=== PATIENT | male | born 1935 | race Caucasian/White ===

== ENCOUNTER → 2018-03-20 11:17 | Outpatient (REF) | payer SELFPAY ==
[2018-03-20 11:24] LABS: Basophils Percent Auto 0.1 % (0-2); Hemoglobin 13.1 g/dL (13.5-17.5)
[2018-03-20 11:26] LABS: Add Manual Diff / Slide Review NO; Eosinophils Percent Auto 6.4 % (2-4); Hematocrit 39.4 % (41-53); Lymphocytes Percent Auto 11.5 % (25-40); Mean Corpuscular HGB Conc 33.3 % (30-36); Mean Corpuscular Hemoglobin 28.6 PG (26-34); Neutrophils Absolute Auto 7800 /uL (3000-5900); Platelet Count 279 X10^3/uL (150-400); Red Blood Cell Count 4.58 X10^6/uL (4.5-5.9); Red Cell Distribution Width 14.4 % (11.6-14.8); White Blood Cell Count 10.4 X10^3/uL (4.5-11.0)
[2018-03-20 11:37] LABS: BUN Creatinine Ratio 21.6 (6-22); Blood Urea Nitrogen 41 mg/dL (9-20); Calcium 8.3 mg/dL (8.4-10.2); Carbon Dioxide 27 mmol/L (22-32); Chloride 101 mmol/L (98-107); Estimated Glomerular Filt Rate 34.3 mL/min (>60); Glucose 251 mg/dL (80-110); HEMOLYSIS < 15 (0-50); Potassium 4.2 mmol/L (3.4-5.1); Sodium 138 mmol/L (137-145)
== END ==
LOC: LAB 11:17
PROVIDERS: Visit Provider Internal Medicine
DX: N17.8 Other acute kidney failure (principal); I10 Essential (primary) hypertension
CPT/HCPCS: 80048; 85025

== ENCOUNTER 2018-06-21 15:08 | Inpatient (IN) | payer MEDICARE, SELFPAY ==
--- NOTE | 2018-06-21 15:22 | ED_ITS ---
HPI - Abdominal Pain General Chief Complaint: Nausea/Vomiting/Diarrhea Stated Complaint: Diarrhea Time Seen by Provider: 06/21/18 15:11 Source: patient and EMS Mode of arrival: EMS History of Present Illness HPI narrative: Patient is an 82-year-old male presenting with diarrhea. He has a chronic Flynn. He says he is unable to empty his bladder due to all large abdominal hernia. He says that his Flynn catheter has not been working like it normally does. He says he is not really emptying. He is currently being treated with Macrobid for a UTI diagnosed by his PCP. His caregiver came over today and found him covered in stool. He denies any complaints except his Flynn catheter not working. He has no abdominal pain he has no chest pain no persistent vomiting MD complaint: abdominal pain Related Data Allergies Allergy/AdvReac Type Severity Reaction Status Date / Time No Known Drug Allergies Allergy Verified 06/21/18 17:52 Review of Systems Review of Systems GENERAL: Denies chills, fatigue, malaise, fever, sweats, travel HEENT: Denies sinus pain, ear pain, sore throat, difficulty swallowing, neck pain RESPIRATORY: Denies dyspnea, cough, wheezing, hemoptysis, sputum. CARDIOVASCULAR: Denies chest pain, palpitations, orthopnea, edema GASTROINTESTINAL: Denies nausea, vomiting, abdominal pain, diarrhea, constipation, melena. : Denies dysuria, frequency, incontinence, hematuria, urinary retention, flank pain. MUSCULOSKELETAL: Denies weakness, joint pain, or bony pain SKIN: No rash, no erythema, no pruritus NEUROLOGIC: Denies weakness, dizziness, headache, numbness, change in speech, confusion PSYCHIATRIC: No concerning psychosocial issues. 12 point review of systems is negative except for those stated above and HPI Constitutional Denies chills, Denies fever(s), Denies lethargy and Denies weakness Cardiovascular Denies chest pain, Denies irregular heart rhythm, Denies lightheadedness, Denies palpitations and Denies orthopnea Gastrointestinal Gastrointestinal: Reports change in bowel habits, Reports diarrhea, Denies nausea and Denies vomiting Genitourinary Reports as per HPI Musculoskeletal Denies back pain, Denies muscle weakness, Denies numbness and Denies tingling Neurologic Denies numbness, Denies tingling and Denies weakness Endocrine Denies palpitations PFS Social History household members: none Smoking Status: Former smoker alcohol intake: former Exam Initial Vital Signs Initial Vital Signs: Vital Signs Temperature 99.9 F H 06/21/18 15:27 Pulse Rate 86 06/21/18 15:27 Respiratory Rate 20 06/21/18 15:27 Blood Pressure 112/97 H 06/21/18 15:27 Pulse Oximetry 96 06/21/18 15:27 Const General: cooperative, No well groomed, disheveled (Incontinence of stool) and frail appearing Orientation: alert, awake and oriented x3 Eyes General: appearance normal, both eyes and all related structures Neck Neck: normal visual inspection and full ROM Chest Chest: normal inspection of the chest Resp Effort & Inspection: normal respiratory effort Auscultation: clear to auscultation bilaterally, no rales, no rhonchi and no wheezes Cardio Rate: regular rate Rhythm: regular rhythm Heart Sounds: S1 normal and S2 normal GI Inspection: normal to inspection Palpation: soft, firm (Suprapubic firmness), No tender and No ascites Auscultation: normal bowel sounds General: No bladder normal to palpation and bladder abnormal (Full) Skin General: no rashes or lesions noted, No jaundice and No petechiae Neuro General: alert, awake and oriented x3 Cranial Nerves: CN's II-XI intact bilaterally Extrem General: normal to inspection, full ROM, capillary refill normal and edema ( Bilaterally) Course Orders Ordered: ED Orders 06/21/18 15:20 Clostridium Difficile Tox PCR Stat 06/21/18 15:35 Complete Blood Count AUTO DIFF Stat Comprehensive Metabolic Panel Stat Lactate (Lactic Acid) Stat Lipase Stat 06/21/18 17:25 Education, smoking cessation ONGOING 06/21/18 17:27 Consult to Occupational Therapy Evaluate & Treat 06/21/18 17:28 Consult to Discharge Planning Routine Consult to Physical Therapy Evaluate & Treat Acetaminophen (Tylenol) 650 mg PO Q6HR PRN PRN Reason: As Needed for Fever/Mild Pain Calcium Carbonate (Tums) 1,000 mg PO Q4HR PRN PRN Reason: Dyspepsia Heparin Sodium (Porcine) (Heparin) 5,000 unit SUBCUT BID MARCIE Sodium Chloride (Normal Saline 0.9%) 1,000 mls @ 100 mls/hr IV CONT MARCIE Last Infusion: 06/21/18 17:25 Dose: 150 mls/hr Admin: 06/21/18 16:08 Dose: 150 mls/hr Levofloxacin (Levaquin) 750 mg in 150 mls @ 100 mls/hr IV NOW ONE Stop: 06/21/18 18:27 Last Infusion: 06/21/18 17:25 Dose: 100 mls/hr Admin: 06/21/18 17:10 Dose: 100 mls/hr Morphine Sulfate (Morphine) 2 mg IV Q4HR PRN PRN Reason: Pain, Moderate (4-6) Ondansetron HCl (Zofran) 4 mg IV Q8HR PRN PRN Reason: Nausea And Vomiting Discontinued Medications Ceftriaxone Sodium/Dextrose (Rocephin) 1 gm in 50 mls @ 100 mls/hr IV NOW ONE Stop: 06/21/18 17:07 Last Admin: 06/21/18 17:19 Dose: Metronidazole (Metronidazole) 500 mg PO NOW ONE Stop: 06/21/18 16:59 Last Admin: 06/21/18 17:11 Dose: 500 mg Vital Signs - 8 hr 06/21/18 15:27 06/21/18 16:30 06/21/18 17:28 Temperature 99.9 F H 97.5 F L Pulse Rate 86 78 87 Respiratory Rate 20 21 19 Blood Pressure 112/97 H 135/84 Blood Pressure [Left Arm] 160/67 H Pulse Oximetry 96 94 96 MDM - Abdominal Pain Lab Data Attestation: I reviewed the patient's lab results. Result diagrams: 06/21/18 15:35 06/21/18 15:35 Lab Results 06/21/18 06/21/18 06/21/18 Range/Units 15:35 15:35 15:35 WBC 17.9 H (4.5-11.0) X10^3/uL RBC 4.43 L (4.5-5.9) X10^6/uL Hgb 12.5 L (13.5-17.5) g/dL Hct 37.1 L (41-53) % MCV 83.8 (80-100) fL MCH 28.2 (26-34) PG MCHC 33.7 (30-36) % RDW 14.1 (11.6-14.8) % Plt Count 268 (150-400) X10^3/uL Neut % (Auto) 92.7 H (50-75) % Lymph % (Auto) 3.6 L (25-40) % [place] % (Auto) 3.0 (3-14) % Eos % (Auto) 0.3 L (2-4) % Baso % (Auto) 0.4 (0-2) % Neut # (Auto) 16679 H (4840-4846) /uL Sodium 138 (137-145) mmol/L Potassium 3.1 L (3.4-5.1) mmol/L Chloride 100 (98-107) mmol/L Carbon Dioxide 22 (22-32) mmol/L BUN 61 H (9-20) mg/dL Creatinine 3.20 H (0.66-1.25) mg/dL Estimated GFR 18.8 L (>60) mL/min BUN/Creatinine Ratio 19.1 (6-22) Glucose 202 H (80-110) mg/dL Lactate 1.1 (0.7-2.1) mmol/L Calcium 8.9 (8.4-10.2) mg/dL Total Bilirubin 0.9 (0.2-1.3) mg/dL AST 12 L (17-59) IU/L ALT 17 L (21-72) IU/L Alkaline Phosphatase 207 H (38-126) U/L Total Protein 6.9 (6.3-8.2) g/dL Albumin 3.6 (3.5-5.0) g/dL Globulin 3.3 (1.7-4.1) g/dL Albumin/Globulin Ratio 1.1 (1.0-2.8) Lipase 33 (23-300) U/L MDM Narrative Medical decision making narrative: Catheter has been replaced significant amount of the drainage with new catheter. Unfortunately C diff stool collection was not collected even though it was ordered. Patient has been on Macrobid for number of days he continues to have leukocytosis. He otherwise appears comfortable. Creatinine is 3.2 today previously 1.[address] this and UTI fail outpatient treatment has accepted. request PO flagyl and cipro. Urine is pending. Discharge Plan Departure Patient Disposition: Admitted As Inpatient Clinical Impression: UTI (urinary tract infection), Acute renal failure Discharge Date/Time: 06/21/18 17:25 Interventions: ED Discharge Assessment Last Done: 06/21/18 17:25 Admit Date/Time: 06/21/18 17:15 Admit Provider: Hiwot Brooks
[2018-06-21 15:27] VITALS: BP 112/97; PULSE 86; RESP 20; TEMP 37.7; O2SAT 96
[2018-06-21 15:44] LABS: Add Manual Diff / Slide Review NO; Basophils Percent Auto 0.4 % (0-2); Eosinophils Percent Auto 0.3 % (2-4); Hematocrit 37.1 % (41-53); Hemoglobin 12.5 g/dL (13.5-17.5); Lymphocytes Percent Auto 3.6 % (25-40); Mean Corpuscular HGB Conc 33.7 % (30-36); Mean Corpuscular Hemoglobin 28.2 PG (26-34); Mean Corpuscular Volume 83.8 fL (80-100); Neutrophils Absolute Auto 16600 /uL (3000-5900); Neutrophils Percent Auto 92.7 % (50-75); Platelet Count 268 X10^3/uL (150-400); Red Blood Cell Count 4.43 X10^6/uL (4.5-5.9); Red Cell Distribution Width 14.1 % (11.6-14.8); White Blood Cell Count 17.9 X10^3/uL (4.5-11.0)
[2018-06-21 15:56] LABS: Alanine Aminotransferase 17 IU/L (21-72); Albumin 3.6 g/dL (3.5-5.0); Albumin Globulin Ratio 1.1 (1.0-2.8); Alkaline Phosphatase 207 U/L (38-126); Aspartate Aminotransferase 12 IU/L (17-59); BUN Creatinine Ratio 19.1 (6-22); Bilirubin Total 0.9 mg/dL (0.2-1.3); Blood Urea Nitrogen 61 mg/dL (9-20); Calcium 8.9 mg/dL (8.4-10.2); Carbon Dioxide 22 mmol/L (22-32); Chloride 100 mmol/L (98-107); Estimated Glomerular Filt Rate 18.8 mL/min (>60); Globulin 3.3 g/dL (1.7-4.1); Glucose 202 mg/dL (80-110); HEMOLYSIS < 15 (0-50); Lactate (Lactic Acid) 1.1 mmol/L (0.7-2.1); Lipase 33 U/L (23-300); Potassium 3.1 mmol/L (3.4-5.1); Sodium 138 mmol/L (137-145); Total Protein 6.9 g/dL (6.3-8.2)
[2018-06-21] MEDS: SODIUM CHLORIDE 0.9% 1,000 ML 150 ML IV (16:08)
[2018-06-21 16:30] VITALS: BP 160/67; PULSE 78; RESP 21; O2SAT 94
[2018-06-21] MEDS: levoFLOXacin 750 MG/150 ML PIGGYBACK 100 MG IV (17:10)
[2018-06-21] MEDS: metroNIDAZOLE 250 MG TABLET 500 MG PO (17:11)
[2018-06-21 17:28] VITALS: BP 135/84; PULSE 87; RESP 19; TEMP 36.4; O2SAT 96; BMI 29.1
--- NOTE | 2018-06-21 18:18 | PC.NURSE ---
Addendum entered by Linda Castañeda R.N. 06/21/18 21:40: Received call back from [place] (granddaughter) she states she will obtain list from [facility] and bring in the morning. Also received call from Elsa RN in ED, she states medications in a bag were sent to Main Nurses station in Acute Care. Medications list bag, were never received at nurses station. Elsa in ED attempted to find location of meds. Original Note: Addendum entered by Linda Castañeda R.N. 06/21/18 21:28: Patient does not know what medications he takes. He can only remember Lasix, does not know the frequency and dose. Notified Dr. Durán. Patient is unable to verbalize his medication list. Called his granddaughter Maien at [phone]. Left message. Patients PMD is Dr. Juan in [facility] [phone], unable to verify information at this time. Office is closed. Original Note: Ernestina shift note: Patient admitted to from ED for treatment of UTI. Patient awake, alert and oriented x3. Calm, cooperative, soft spoken and pleasant. JAMUL, and visually impaired due to severe cataracts, no hearing aids available. [facility] has an ophthalmology appointment this week. Noted with incontinence associated dermatitis to perineum, applied protective barrier cream. Cool edematous BLE 2+. VSS and afebrile. Updated regarding plan of care and oriented to room, environment and call light use. At home uses cane for short distances and walker for longer distances. SCD in place. Discussed importance of SCDs, cardiac surgeon, and IVFs. Obtained POLST from ED which was brought in by EMS, DNAR with limited interventions dated 03/18/2018. Will update and notify MD. CAll light within reach.
[2018-06-21 18:32] LABS: Appearance Urine UA CLOUDY; Bilirubin Urine UA NEGATIVE (NEGATIVE); Color Urine UA ORANGE; Glucose Urine UA TRACE g/dL (Normal); Ketones Urine UA NEGATIVE (NEGATIVE); Leukocyte Esterase Urine UA 2+ (NEGATIVE); Nitrite Urine UA POSITIVE (Negative); Occult Blood Urine UA 3+ (Negative); Protein Urine UA 3+ (Negative)
[2018-06-21 18:47] LABS: Bacteria Urine Moderate (10-30); Culture Indicated Urine Specimen Cultured; RBC Urine 10-30/HPF (0-5/HPF); WBC Urine 30-100/HPF (0-5/HPF)
[2018-06-21 19:32] VITALS: BP 133/58; PULSE 69; RESP 20; TEMP 36.4; O2SAT 96
--- NOTE | 2018-06-21 20:59 | PM.HP.1 ---
History of Present Illness Date Patient Seen: 06/21/18 Time Patient Seen: 21:08 Chief complaint: Diarrhea Narrative: Patient presents with the obstruction to his urinary catheter and new onset diarrhea. He states that he had his catheter placed about 2 weeks ago because he had difficulty with urination he states that this was due to his inguinal hernia catheter was placed 2 weeks ago he says he has been having problem with the catheter he is having been having pain and burning from the catheter ever since then. He started having difficulty with drainage of the catheter yesterday and he also notes that he was placed on antibiotic by his primary care doctor sometime last week for urinary infection. Early this morning copious amounts of diarrhea started he has been having diarrhea all day uncontrollable. He lives alone caregiver came in and had him come into the ER for evaluation due to the above-mentioned problems. The patient has been here in the emergency room since early this afternoon however he is unable to recall any of his medications and no one has been able to produce any type of list of medication. Patient History Medical History Congestive heart failure (Acute) Diabetes mellitus (Acute) Hernia of scrotum (Acute) Hypertension (Acute) Family & Social History Social History: household members none Prior Living Arrangements Mobile home Safety & Behavioral: Feels Safe in Current Yes Environment Suicidal Ideation Description None Tobacco & Substance use: Smoking Status Former smoker alcohol intake former alcohol intake frequency 0-2 drinks per day Substance Use Type does not use Meds Allergies Allergy/AdvReac Type Severity Reaction Status Date / Time No Known Drug Allergies Allergy Verified 06/21/18 17:52 Exam Vital Signs (past 8 hours): - 06/21/18 15:27 06/21/18 16:30 06/21/18 17:28 Temperature 99.9 F H 97.5 F L Pulse Rate 86 78 87 Respiratory Rate 20 21 19 Blood Pressure 112/97 H 135/84 Blood Pressure [Left Arm] 160/67 H Pulse Oximetry 96 94 96 06/21/18 19:32 Temperature 97.5 F L Pulse Rate 69 Respiratory Rate 20 Blood Pressure 133/58 L Blood Pressure [Left Arm] Pulse Oximetry 96 Oxygen Delivery Method Room Air Narrative Exam Narrative: Resting comfortably no acute distress Oropharynx dry Heart tachycardic Lungs clear Abdomen soft right inguinal hernia noted easily reducible Urinary catheter in place Lower extremities 1+ edema Skin warm and dry Neuro exam awake alert oriented x3 hard of hearing Objective Labs Result Diagrams: 06/21/18 15:35 06/21/18 15:35 Labs: Laboratory Results - last 24 hr 06/21/18 06/21/18 06/21/18 15:35 15:35 15:35 WBC 17.9 H RBC 4.43 L Hgb 12.5 L Hct 37.1 L MCV 83.8 MCH 28.2 MCHC 33.7 RDW 14.1 Plt Count 268 Neut % (Auto) 92.7 H Lymph % (Auto) 3.6 L [place] % (Auto) 3.0 Eos % (Auto) 0.3 L Baso % (Auto) 0.4 Neut # (Auto) 78806 H Sodium 138 Potassium 3.1 L Chloride 100 Carbon Dioxide 22 BUN 61 H Creatinine 3.20 H Estimated GFR 18.8 L BUN/Creatinine Ratio 19.1 Glucose 202 H Lactate 1.1 Calcium 8.9 Total Bilirubin 0.9 AST 12 L ALT 17 L Alkaline Phosphatase 207 H Total Protein 6.9 Albumin 3.6 Globulin 3.3 Albumin/Globulin Ratio 1.1 Lipase 33 Urine Color Urine Appearance Urine pH Ur Specific [place] Urine Protein Urine Glucose (UA) Urine Ketones Urine Occult Blood Urine Nitrate Urine Bilirubin Urine Urobilinogen Ur Leukocyte Esterase Urine RBC Urine WBC Urine Bacteria Ur Culture Indicated? Micro UA Comment 06/21/18 16:50 WBC RBC Hgb Hct MCV MCH MCHC RDW Plt Count Neut % (Auto) Lymph % (Auto) [place] % (Auto) Eos % (Auto) Baso % (Auto) Neut # (Auto) Sodium Potassium Chloride Carbon Dioxide BUN Creatinine Estimated GFR BUN/Creatinine Ratio Glucose Lactate Calcium Total Bilirubin AST ALT Alkaline Phosphatase Total Protein Albumin Globulin Albumin/Globulin Ratio Lipase Urine Color [place] Urine Appearance Cloudy Urine pH 5.0 Ur Specific [place] 1.020 Urine Protein 3+ H Urine Glucose (UA) Trace Urine Ketones Negative Urine Occult Blood 3+ H Urine Nitrate Positive Urine Bilirubin Negative Urine Urobilinogen 1.0 Ur Leukocyte Esterase 2+ H Urine RBC 10-30/hpf H Urine WBC 30-100/hpf H Urine Bacteria Moderate (10-30) H Ur Culture Indicated? Specimen cultured Micro UA Comment Not Reportable Assessment & Plan Plan: Assessment/Plan Narrative: One. Urinary tract infection secondary to urinary catheter has failed outpatient treatment he has persistent signs of infection in his UA and elevated white count. Infection seems to be secondary to the catheter. The catheter seems to be was malfunctioning it was replaced in the emergency department and now is draining well. Urine culture will be done who was placed on Levaquin 2. Persistent diarrhea possible clostridia colitis as C difficile has been ordered as yet to be collected will go ahead and place him on IV Flagyl for now. 3. Chronic kidney disease with acute exacerbation acute kidney injury creatinine up to 3.7 plan to rehydrate and hopefully with functioning urinary catheter this will come back down. 4. Diabetes plan to place him on as needed insulin for now. 5. History of heart failure will hold the Lasix and not sure of his current dose of home try to get the whole of his medication lists. 6. Code status he has a pulsed which shows DNR status 7. DVT prophylaxis on heparin
[2018-06-21] MEDS: LACTATED RINGERS 1,000 ML 100 ML IV (21:17)
[2018-06-21] MEDS: HEPARIN 5,000 UNIT/ML VIAL 5000 UNIT SUBCUT (21:20)
[2018-06-21 23:55] VITALS: BP 126/61; PULSE 67; RESP 18; TEMP 36.7; O2SAT 96
[2018-06-22] VITALS (8 sets, daily range): BP systolic 138–158; BP diastolic 65–78; PULSE 66–95; RESP 16–18; TEMP 36.5–37.2; O2SAT 95–97
[2018-06-22] MEDS: metroNIDAZOLE 500 MG/100 ML PIGGYBACK 100 MG IV ×3 (01:14→16:40)
[2018-06-22] MEDS: CIPROFLOXACIN 400 MG/200 ML PIGGYBACK 200 MG IV (05:58)
--- NOTE | 2018-06-22 07:02 | PC.NURSE ---
pt al&ox4, VSS on RA, womack draining to gravity, denied pain. slept most of night no new complaints
[2018-06-22 07:07] LABS: Add Manual Diff / Slide Review NO; Basophils Percent Auto 0.9 % (0-2); Eosinophils Percent Auto 1.5 % (2-4); Hematocrit 36.3 % (41-53); Lymphocytes Percent Auto 6.9 % (25-40); Mean Corpuscular HGB Conc 32.9 % (30-36); Mean Corpuscular Hemoglobin 27.9 PG (26-34); Mean Corpuscular Volume 84.8 fL (80-100); Monocytes Percent Auto 5.6 % (3-14); Neutrophils Absolute Auto 10300 /uL (3000-5900); Neutrophils Percent Auto 85.1 % (50-75); Platelet Count 249 X10^3/uL (150-400); Red Blood Cell Count 4.28 X10^6/uL (4.5-5.9); White Blood Cell Count 12.1 X10^3/uL (4.5-11.0)
[2018-06-22 07:20] LABS: Alanine Aminotransferase 19 IU/L (21-72); Albumin 3.2 g/dL (3.5-5.0); Alkaline Phosphatase 179 U/L (38-126); Aspartate Aminotransferase 11 IU/L (17-59); BUN Creatinine Ratio 21.7 (6-22); Bilirubin Total 0.6 mg/dL (0.2-1.3); Blood Urea Nitrogen 52 mg/dL (9-20); Calcium 8.6 mg/dL (8.4-10.2); Carbon Dioxide 24 mmol/L (22-32); Chloride 101 mmol/L (98-107); Estimated Glomerular Filt Rate 26.2 mL/min (>60); Globulin 3.2 g/dL (1.7-4.1); Glucose 138 mg/dL (80-110); HEMOLYSIS < 15 (0-50); Magnesium 1.8 mg/dL (1.6-2.3); Sodium 137 mmol/L (137-145); Total Protein 6.4 g/dL (6.3-8.2)
[2018-06-22 07:31] LABS: Potassium 2.6 mmol/L (3.4-5.1)
[2018-06-22] MEDS: POTASSIUM CHLORIDE 20 MEQ TAB 40 MEQ PO ×3 (08:44→16:40)
[2018-06-22] MEDS: MAGNESIUM SULFATE 2 GM/50 ML PIGGYBACK IV (08:44)
[2018-06-22] MEDS: HEPARIN 5,000 UNIT/ML VIAL 5000 UNIT SUBCUT ×2 (08:46→20:36)
[2018-06-22] MEDS: INSULIN ASPART 100 UNIT/ML INSULN PEN SUBCUT ×3 (08:46→16:43)
--- NOTE | 2018-06-22 10:00 | PT.IIE ---
Medical History (Last Updated 06/21/18 @ 19:47 by Linda Castañeda RN) Congestive heart failure (Acute) Diabetes mellitus (Acute) Hernia of scrotum (Acute) Hypertension (Acute) Physical Therapy Inpatient Evaluation/Re-Eval M1 PT/OT-IP Prior Functional Status Start: 06/22/18 10:05 Freq: NEEDED Status: Active Protocol: Document 06/22/18 10:10 (Rec: 06/22/18 11:53 [id number]) Medical Review Prior Functional Status Medical History Reviewed Yes Mobility and Gait independent with a cane as needed and pt requires constant tactile feedback for guidance since he is legally blind. Activities of Daily Living and IADL's independent at his mobile home with a cane as needed. Pt reports he uses tactile feedback from furnitures for guidance because of his poor vision. Pt had a helper who is a cable inspector to help him for IADLs 3 x /week. Social History Household Members none Living Arrangements Mobile home Number of Floors (Floors) One Floor Number of Stairs To Enter/Railing? 4 YN with siderails Home Environment Standard Height Toilet Walk in Shower Home Equipment Four Wheel Walker Manual Wheelchair Employment Status Retired Additional Social History Comment Patient lives alone in a mobile home for 19 years. Pt reports he uses tactile feedback from furnitures for guidance because of his poor vision. Pt had a helper who is a cable inspector to help him for IADLs 3 x /week. M2 PT-IP Current Condition Start: 06/22/18 10:05 Freq: NEEDED Status: Active Protocol: Document 06/22/18 10:10 (Rec: 06/22/18 11:53 [id number]) Physical Therapy Current Condition Current Condition Evaluation Date 06/22/18 Treatment Diagnosis Diarrhea, generalized muscle weakness Onset Date 06/20/18 Precautions Other Precautions Pt is legally blind M3 PT-IP Subjective Start: 06/22/18 10:05 Freq: NEEDED Status: Active Protocol: Document 06/22/18 10:10 (Rec: 06/22/18 11:53 [id number]) Subjective Physical Therapy Visit Type Type Initial Evaluation Visit Start Time 10:10 Visit Stop Time 11:00 Total Visit Minutes 50 Notes Pt was seen in his room today who was sitting on his recliner. Physical Therapy Visit Comments Patient Comments Pt mentioned that he had 2 falls for the past 6 months due to occasional LOB but he does not know why. Pt also mentioned he did receive home health PT 3x/week and it helped with his strength and balance. Pt reports he did not c/o diarrhea since yesterday and he feels better and stronger today. Patient Goals To be able to go home. Therapy Pain Assessment Pain Present Pain Present Denied Pain M4 PT-IP Mobility and Gait Start: 06/22/18 10:05 Freq: NEEDED Status: Active Protocol: Document 06/22/18 10:10 (Rec: 06/22/18 11:53 [id number]) PT-Bed Mobility Assessment Scooting Scooting to Edge of Bed Standby Assistance PT-Transfer Assessment Sit to and From Stand Sit to and from Stand Contact Guard Assistance Equipment Transfer Assistive Device Gait Belt Standard Walker Transfers Transfer Destination Chair Transfer Ability Level of Assist Contact Guard Assistance Comments Mobility Comments tactile and verbal cues are required because pt is legally blind. Gait Assessment Gait Gait Assistance Required: Contact Guard Assist Distance (Feet) 150 Assistive Devices Assistive Device Gait Belt Standard Walker Gait Deviations General Gait Pattern Decreased Stride Length Decreased Feet Clearance Factors Limiting Gait Function Factors Limiting Gait Function Decreased Activity Tolerance Comments Gait Comments Pt presents decreased stride length and feet clearance due to unfamiliar with his surroundings. Pt requires constant verbal and tactile cues for directional guidance. PT-Balance Assessment Sitting Balance and Reactions Static Sitting Balance Ability Normal Dynamic Sitting Balance Ability Normal Standing Balance and Reactions Static Standing Balance Ability Normal Dynamic Standing Balance Ability Good Comments Other Balance Tests/Deviations/Treatment Pt demonstrates occasional LOB : with excessive lateral weight shift during amb. Pt requires constant contact guard for amb. M5 PT-IP Objective Assessments Start: 06/22/18 10:05 Freq: NEEDED Status: Active Protocol: Document 06/22/18 10:10 (Rec: 06/22/18 11:53 [id number]) Orientation Orientation/Cognition Level of Alertness Alert Orientation Name Age Birthday Month Date Year Day of Week Place Gross Range of Motion Upper Extremity ROM Assessment Within Functional Limits Lower Extremity ROM Assessment Within Functional Limits Strength Upper Extremity Strength Assessment Within Functional Limits Coordination Assessment Gross Coordination Gross Coordination WNL M6 PT-IP Treatment Start: 06/22/18 10:05 Freq: NEEDED Status: Active Protocol: Document 06/22/18 10:10 (Rec: 06/22/18 11:53 [id number]) Physical Therapy Treatment Education Education Provided Precautions Safety Other Treatments Other Treatment Performed sit to stand x 4 with CGA amb 150 feet with CGA and tactile and verbal cues for directional guidance. M7 PT-IP Assessment and Plan Start: 06/22/18 10:05 Freq: NEEDED Status: Active Protocol: Document 06/22/18 10:10 (Rec: 06/22/18 11:53 [id number]) PT Summary Assessment and Plan Potential Rehabilitation Potential Good Status of Condition at Evaluation Evolving Summary Impairments Strength Balance Gait Activity Tolerance Assessment Summary Pt is a 82 yo pleasant male s/ p acute diarrhea due to obstruction of his womack catheter. Pt was seen in his room today who was sitting in his reclining chair. Pt did not c/o pain and diarrhea yesterday and he felt better and stronger today. Pt mentioned that he had 2 falls for the past 6 months due to occasional LOB but he does not know why. Pt also mentioned he did receive home health PT 3x/week and it helped with his strength and balance. Upon assessment, Pt demonstrates his WFL strength and ROM for functional activities such as transfer and amb. However, pt required constant tactile and verbal cues for directional guidance due to his poor vision. Pt also demonstrated occasional LOB during amb and he explained this happened to him occasionally at home which creates fall risks. Pt also c /o slight fatigue after amb with 150 feet today. D/C recommendation include home health PT for overall strengthening and balance training and home care to assist him for ADLs and IADLs. Goals Bed Mobility Goal Independent Standby Assistance Transfer Goal Independent Standby Assistance Gait Goal Independent Standby Assistance Gait Distance 300 Other Goals to use SPC for amb with CGA to negotiate stair with the use of handrails with SBA/ I Days to Meet Goals 3 Frequency of Treatment Frequency Of Treatment Twice a Day Treatment Plan Physical Therapy Treatment Plan Bed Mobility Training Transfer Training Gait Training Therapeutic Exercise Balance Retraining Discharge Planning Other Recommendations and Next Treatment Cont amb with CGA with tactile Focus and verbal cues for directional guidance balance training includes single leg stance, lateral weight shifting, EO EC stance, tandem stance stair training with the use of handrails STS with hip hinge. Recommendations To Nursing Amount of Assist Needed 1 Person Assist Discharge Recommendations PT Discharge Recommendations Home with 07/02 Assist Home Health
[2018-06-22] MEDS: LACTATED RINGERS 1,000 ML 100 ML IV (11:15)
--- NOTE | 2018-06-22 11:45 | CM.DPC ---
Referral faxed to [facility]
--- NOTE | 2018-06-22 11:53 | PT.IIE ---
Medical History (Last Updated 06/21/18 @ 19:47 by Linda Castañeda RN) Congestive heart failure (Acute) Diabetes mellitus (Acute) Hernia of scrotum (Acute) Hypertension (Acute) Physical Therapy Inpatient Evaluation/Re-Eval M1 PT/OT-IP Prior Functional Status Start: 06/22/18 10:05 Freq: NEEDED Status: Active Protocol: Document 06/22/18 10:10 (Rec: 06/22/18 11:53 [id number]) Medical Review Prior Functional Status Medical History Reviewed Yes Mobility and Gait independent with a cane as needed and pt requires constant tactile feedback for guidance since he is legally blind. Activities of Daily Living and IADL's independent at his mobile home with a cane as needed. Pt reports he uses tactile feedback from furnitures for guidance because of his poor vision. Pt had a helper who is a cab supervisor to help him for IADLs 3 x /week. Social History Household Members none Living Arrangements Mobile home Number of Floors (Floors) One Floor Number of Stairs To Enter/Railing? 4 [place] with siderails Home Environment Standard Height Toilet Walk in Shower Home Equipment Four Wheel Walker Manual Wheelchair Employment Status Retired Additional Social History Comment Patient lives alone in a mobile home for 19 years. Pt reports he uses tactile feedback from furnitures for guidance because of his poor vision. Pt had a helper who is a cab supervisor to help him for IADLs 3 x /week. M2 PT-IP Current Condition Start: 06/22/18 10:05 Freq: NEEDED Status: Active Protocol: Document 06/22/18 10:10 (Rec: 06/22/18 11:53 [id number]) Physical Therapy Current Condition Current Condition Evaluation Date 06/22/18 Treatment Diagnosis Diarrhea, generalized muscle weakness Onset Date 06/20/18 Precautions Other Precautions Pt is legally blind M3 PT-IP Subjective Start: 06/22/18 10:05 Freq: NEEDED Status: Active Protocol: Document 06/22/18 10:10 (Rec: 06/22/18 11:53 [id number]) Subjective Physical Therapy Visit Type Type Initial Evaluation Visit Start Time 10:10 Visit Stop Time 11:00 Total Visit Minutes 50 Notes Pt was seen in his room today who was sitting on his recliner. Physical Therapy Visit Comments Patient Comments Pt mentioned that he had 2 falls for the past 6 months due to occasional LOB but he does not know why. Pt also mentioned he did receive home health PT 3x/week and it helped with his strength and balance. Pt reports he did not c/o diarrhea since yesterday and he feels better and stronger today. Patient Goals To be able to go home. Therapy Pain Assessment Pain Present Pain Present Denied Pain M4 PT-IP Mobility and Gait Start: 06/22/18 10:05 Freq: NEEDED Status: Active Protocol: Document 06/22/18 10:10 (Rec: 06/22/18 11:53 [id number]) PT-Bed Mobility Assessment Scooting Scooting to Edge of Bed Standby Assistance PT-Transfer Assessment Sit to and From Stand Sit to and from Stand Contact Guard Assistance Equipment Transfer Assistive Device Gait Belt Standard Walker Transfers Transfer Destination Chair Transfer Ability Level of Assist Contact Guard Assistance Comments Mobility Comments tactile and verbal cues are required because pt is legally blind. Gait Assessment Gait Gait Assistance Required: Contact Guard Assist Distance (Feet) 150 Assistive Devices Assistive Device Gait Belt Standard Walker Gait Deviations General Gait Pattern Decreased Stride Length Decreased Feet Clearance Factors Limiting Gait Function Factors Limiting Gait Function Decreased Activity Tolerance Comments Gait Comments Pt presents decreased stride length and feet clearance due to unfamiliar with his surroundings. Pt requires constant verbal and tactile cues for directional guidance. PT-Balance Assessment Sitting Balance and Reactions Static Sitting Balance Ability Normal Dynamic Sitting Balance Ability Normal Standing Balance and Reactions Static Standing Balance Ability Normal Dynamic Standing Balance Ability Good Comments Other Balance Tests/Deviations/Treatment Pt demonstrates occasional LOB : with excessive lateral weight shift during amb. Pt requires constant contact guard for amb. M5 PT-IP Objective Assessments Start: 06/22/18 10:05 Freq: NEEDED Status: Active Protocol: Document 06/22/18 10:10 (Rec: 06/22/18 11:53 [id number]) Orientation Orientation/Cognition Level of Alertness Alert Orientation Name Age Birthday Month Date Year Day of Week Place Gross Range of Motion Upper Extremity ROM Assessment Within Functional Limits Lower Extremity ROM Assessment Within Functional Limits Strength Upper Extremity Strength Assessment Within Functional Limits Coordination Assessment Gross Coordination Gross Coordination WNL M6 PT-IP Treatment Start: 06/22/18 10:05 Freq: NEEDED Status: Active Protocol: Document 06/22/18 10:10 (Rec: 06/22/18 11:53 [id number]) Physical Therapy Treatment Education Education Provided Precautions Safety Other Treatments Other Treatment Performed sit to stand x 4 with CGA amb 150 feet with CGA and tactile and verbal cues for directional guidance. M7 PT-IP Assessment and Plan Start: 06/22/18 10:05 Freq: NEEDED Status: Active Protocol: Document 06/22/18 10:10 (Rec: 06/22/18 11:53 [id number]) PT Summary Assessment and Plan Potential Rehabilitation Potential Good Status of Condition at Evaluation Evolving Summary Impairments Strength Balance Gait Activity Tolerance Assessment Summary Pt is a 82 yo pleasant male s/ p acute diarrhea due to obstruction of his womack catheter. Pt was seen in his room today who was sitting in his reclining chair. Pt did not c/o pain and diarrhea yesterday and he felt better and stronger today. Pt mentioned that he had 2 falls for the past 6 months due to occasional LOB but he does not know why. Pt also mentioned he did receive home health PT 3x/week and it helped with his strength and balance. Upon assessment, Pt demonstrates his WFL strength and ROM for functional activities such as transfer and amb. However, pt required constant tactile and verbal cues for directional guidance due to his poor vision. Pt also demonstrated occasional LOB during amb and he explained this happened to him occasionally at home which creates fall risks. Pt also c /o slight fatigue after amb with 150 feet today. D/C recommendation include home health PT for overall strengthening and balance training and home care to assist him for ADLs and IADLs. Goals Bed Mobility Goal Independent Standby Assistance Transfer Goal Independent Standby Assistance Gait Goal Independent Standby Assistance Gait Distance 300 Other Goals to use SPC for amb with CGA to negotiate stair with the use of handrails with SBA/ I Days to Meet Goals 3 Frequency of Treatment Frequency Of Treatment Twice a Day Treatment Plan Physical Therapy Treatment Plan Bed Mobility Training Transfer Training Gait Training Therapeutic Exercise Balance Retraining Discharge Planning Other Recommendations and Next Treatment Cont amb with CGA with tactile Focus and verbal cues for directional guidance balance training includes single leg stance, lateral weight shifting, EO EC stance, tandem stance stair training with the use of handrails STS with hip hinge. Recommendations To Nursing Amount of Assist Needed 1 Person Assist Discharge Recommendations PT Discharge Recommendations Home with Assistance Home Health
--- NOTE | 2018-06-22 11:56 | CM.DANOTE ---
Discharge Planning/Care Management DCP: assessment: case received, EMR reviewed and met with pt. Introduced self and role. Pt is an 82 year old male who admitted to care of hospitalist team last evening. PCP: Dr. Do Payer: Medicare Pt does live alone/see Template info for details. Says his granddaughter Maine Conley (?sp) is his primary contact: [phone] and that any d/c planning plans can be discussed with her. Laura [facility] called/ they are current with pt. RN comes out 2x week for womack catheter management. PT says he has had this for a few months. Malu has been faxed clinical info and she will also fax some of the HH notes as their team is concerned about pt's living environment in the [facility]. They note: filthy with stool all over but it is noted that pt has a day of copious diarrhea so unclear what the full story is on this. Pt appears A/O, just [place]. P: follow as POC unfolds and include [place] in the d/c planning process. Urine culure and sensitivities are pending as is C-diff. Expect PT and OT will be involved as appropriate. CM Discharge Assessment Start: 06/22/18 11:45 Freq: Status: Active Protocol: Document 06/22/18 11:46 ITV (Rec: 06/22/18 11:55 ITV [id number]) Discharge Planning Assessment Advance Directives? No History Provided By Patient Medical Record Prior Living Arrangements Mobile home Comment stayed with grand-daughter Maine for a month after d/c from [facility]. Then returned to his trailer. She wanted me to stay with her but I wanted to go to my own place. Household Members none Is patient alert and oriented? Yes: very [place] need to face pt and speak loudly/clearly If patient plan is home with home health pt is current with Laura [facility]INGH[facility]. : Has signed face to face form been completed? Whiteboard Updated in Patient Room with Yes name and ext. # of Tractor Technician Review Status In Process Next Review Type Continued Stay Review
--- NOTE | 2018-06-22 12:38 | PM.PN.1 ---
Subjective Date Patient Seen: 06/22/18 Time Patient Seen: 10:00 Interval history: PATIENT IS LEGALLY BLIND DENIED ANY CP/SOB FEELING MUCH BETTER NO OTHER COMPLAINTS Exam Vital Signs (past 8 hours): - 06/22/18 05:10 06/22/18 07:20 06/22/18 08:10 Temperature 97.7 F 98.7 F Pulse Rate 72 70 Respiratory Rate 18 17 Blood Pressure 146/75 H 138/73 Pulse Oximetry 96 96 96 06/22/18 11:57 Temperature 98.3 F Pulse Rate 66 Respiratory Rate 16 Blood Pressure 139/65 Pulse Oximetry 97 Oxygen Delivery Method Room Air Oxygen Flow Rate 0 Narrative Exam Narrative: NO ACUTE DISTRESS. PATIENT IS ALERT ORIENTED X2. VITAL SIGNS STABLE HEAD ATRAUMATIC NORMOCEPHALIC NECK : SUPPLE WITHOUT ADENOPATHY EYE: EOMI, PERRLA, CATARACT NOTED TO SCLERA CHEST: REGULAR RATE.. NO RUBS. PMI IS NON DISPLACED. NO MURMURS PULMONARY: DECREASED BS OVER THE BASES. MILD BIBASILAR CRACKLES NOTED; NO INCREASED DULLNESS TO PERCUSSION ABDOMEN: SOFT; NON TENDER; BS + IN ALL 4 QUAD EXTREMITIES:NO EDEMA.. NO CYANOSIS OR CLUBBING NOTED. NEURO: CRANIAL NERVES 2-12 GROSSLY INTACT. NO FOCAL NEUROLOGICAL DEFICIT NOTED. MSK: NORMAL RANGE OF MOTION FOR AGE. NO JOINT EFFUSION. SKIN: NORMAL FOR ETHNICITY; NO ECCHYMOSIS. NO LESION. GOOD TURGOR.; NORASHES : NORMAL EXTERNAL GENITALIA. GARDNER PRESENT WITH YELLOWISH URINE PSYCH : APPROPRIATE MOOD AND AFFECT. ALERT AWAKE ORIENTED X3 Objective Labs Result Diagrams: 06/22/18 06:47 06/22/18 06:47 Labs: Laboratory Results - last 24 hr 06/21/18 06/21/18 06/21/18 15:35 15:35 15:35 WBC 17.9 H RBC 4.43 L Hgb 12.5 L Hct 37.1 L MCV 83.8 MCH 28.2 MCHC 33.7 RDW 14.1 Plt Count 268 Neut % (Auto) 92.7 H Lymph % (Auto) 3.6 L [place] % (Auto) 3.0 Eos % (Auto) 0.3 L Baso % (Auto) 0.4 Neut # (Auto) 97627 H Sodium 138 Potassium 3.1 L Chloride 100 Carbon Dioxide 22 BUN 61 H Creatinine 3.20 H Estimated GFR 18.8 L BUN/Creatinine Ratio 19.1 Glucose 202 H Lactate 1.1 Calcium 8.9 Phosphorus Magnesium Total Bilirubin 0.9 AST 12 L ALT 17 L Alkaline Phosphatase 207 H Total Protein 6.9 Albumin 3.6 Globulin 3.3 Albumin/Globulin Ratio 1.1 Lipase 33 Urine Color Urine Appearance Urine pH Ur Specific [place] Urine Protein Urine Glucose (UA) Urine Ketones Urine Occult Blood Urine Nitrate Urine Bilirubin Urine Urobilinogen Ur Leukocyte Esterase Urine RBC Urine WBC Urine Bacteria Ur Culture Indicated? Micro UA Comment 06/21/18 06/22/18 06/22/18 16:50 06:47 06:47 WBC 12.1 H RBC 4.28 L Hgb 12.0 L Hct 36.3 L MCV 84.8 MCH 27.9 MCHC 32.9 RDW 14.0 Plt Count 249 Neut % (Auto) 85.1 H Lymph % (Auto) 6.9 L [place] % (Auto) 5.6 Eos % (Auto) 1.5 L Baso % (Auto) 0.9 Neut # (Auto) 27558 H Sodium 137 Potassium 2.6 L* Chloride 101 Carbon Dioxide 24 BUN 52 H Creatinine 2.40 H Estimated GFR 26.2 L BUN/Creatinine Ratio 21.7 Glucose 138 H Lactate Calcium 8.6 Phosphorus 4.0 H Magnesium 1.8 Total Bilirubin 0.6 AST 11 L ALT 19 L Alkaline Phosphatase 179 H Total Protein 6.4 Albumin 3.2 L Globulin 3.2 Albumin/Globulin Ratio 1.0 Lipase Urine Color [place] Urine Appearance Cloudy Urine pH 5.0 Ur Specific [place] 1.020 Urine Protein 3+ H Urine Glucose (UA) Trace Urine Ketones Negative Urine Occult Blood 3+ H Urine Nitrate Positive Urine Bilirubin Negative Urine Urobilinogen 1.0 Ur Leukocyte Esterase 2+ H Urine RBC 10-30/hpf H Urine WBC 30-100/hpf H Urine Bacteria Moderate (10-30) H Ur Culture Indicated? Specimen cultured Micro UA Comment Not Reportable Assessment & Plan Plan: Assessment/Plan Narrative: IMPRESSION AND PLAN UTI VS PYELONEPHRITIS; ACUTE ; LIKELY DUE TO GARDNER CATH; CONT CURRENT ABX; GRAM NEG MANJIT ON CX ; AWAITING ID AND SENSITIVITY REPORTS; SEPSIS WITH SOURCE BEING THE URINE; POA; RESOLVING; CONT CURRENT ABX; FOLLOW CX; ADJUST ABX INDICATED; CONT WITH IVF WELL LEUKOCYTOSIS; WILL CONT WTH DAILY CBC; FOLLOW CX; ADJUST ABX INDICATED HTN PER HX; MONITOR ON HOME AND PRN MEDS DM2 PER HX; ISS; HOME MEDS POSS CHF; NO S/S OF ACUTE DECOMPENSATION; HOME MEDS; WATCH FLUID INTAKES CLOSELY; TELE AT ALL TIMES; DAILY WT POSS DC IN NEXT 24 HRS ON PO MEDS IF STABLE POSS CATARACT TO BLE EYE CAUSING BLINDNESS; OUTPATIENT MANAGEMENT ANEMIA; LIKELY OF CD; MONITOR WITH SERIAL LABS FOR NOW HYPOKALEMIA; DUE TO DEC ORAL INTAKES LIKELY; RPLACED TODAY; MAG GIVEN WELL; REPEAT LABS IN AM TO FOLLOW ACUTE ON CHRONIC RENAL FAILURE; LIKELY PRERENAL IN NATURE; GFR IMPROVED TODAY; CON TO AVOID NEPHROTOXINS; DOSE MEDS PER GFR; DAILY LABS TO FOLLOW URINARY RETENTION; CONT WTIH CHRONIC GARDNER FOR NOW
--- NOTE | 2018-06-22 14:58 | OT.IP.EVAL ---
Current Diagnoses Infection and inflammatory reaction due to indwelling urethral catheter, initial encounter (06/21/18) Past Medical History (Last Updated 06/21/18 @ 19:47 by Linda Castañeda RN) Congestive heart failure (Acute) Diabetes mellitus (Acute) Hernia of scrotum (Acute) Hypertension (Acute) Occupational Therapy Inpatient Evaluation/Re-Eval M1 PT/OT-IP Prior Functional Status Start: 06/22/18 10:05 Freq: NEEDED Status: Active Protocol: Document 06/22/18 14:58 WILLIAM (Rec: 06/23/18 09:01 [facility] [id number]) Medical Review Prior Functional Status Medical History Reviewed Yes Diet/Fluid Consistency Regular Communication WNL Mobility and Gait independent with a cane as needed in home; pt reports he uses tactile feedback from furnitures for guidance because of his poor vision. Pt uses 4WW in community Activities of Daily Living and IADL's Pt hires a cabinet installer to drive him to restaurant and stores to run errands 3 x /week. Pt sends residential driver into store to purchase items as he cannot locate items due to low vision . Prior Functional Level (Other details) Pt admits to burning himself while pouring coffee due to low vision. He states he uses stove top for cooking. He reports he is unable to read his mail or pay bills due to low vision. He reports that his granddaughter has not been assisting him for the last 2 weeks due to an argument Social History Household Members none Living Arrangements Mobile home Number of Floors (Floors) One Floor Number of Stairs To Enter/Railing? 4 stairs to enter with railing Home Environment Standard Height Toilet Walk in Shower Home Equipment Four Wheel Walker Straight Cane Bedside Commode Employment Status Retired Additional Social History Comment Pt uses BSC in shower as shower chair M2 OT-IP Current Condition Start: 06/23/18 08:14 Freq: Status: Active Protocol: Document 06/22/18 14:58 WILLIAM (Rec: 06/23/18 09:01 [facility] [id number]) Occupational Therapy Current Condition Current Condition Evaluation Date 06/23/18 Treatment Diagnosis decreased self care, mobility due to block womack, UTI, severe diarrhea Diagnosis Onset Date 06/21/18 Post Operative Precautions Other Precautions Pt is legally blind, fall risk M3 OT- IP Subjective and Pain Start: 06/23/18 08:14 Freq: Status: Active Protocol: Document 06/22/18 14:58 PJ (Rec: 06/23/18 09:01 [facility] [id number]) OT- Subjective Occupational Therapy Visit Type Type Initial Evaluation Visit Start Time 14:38 Visit Stop Time 14:58 Total Visit Minutes 20 Occupational Therapy Visit Comments Patient Comments I don't want to live in another man's house. I want to be in my own house. Patient/Caregiver Goals to go home OT Pain Assessment Pain When Pain Assessed At Rest Pain Present Pain Present Denied Pain M4 OT- IP ADL's Start: 06/23/18 08:14 Freq: Status: Active Protocol: Document 06/22/18 14:58 PJ (Rec: 06/23/18 09:01 [facility] [id number]) OT [id number] General Evaluation Self-Feeding Ability Independent Comments OT Self-Feeding Comments needs set up due to low vision and unfamiliar tray items OT ADL-Grooming General Evaluation Grooming Ability Standby Assistance Areas Needing Assistance Retrieving/Set-up of Grooming Items Face Washing OT ADL-Oral Care General Eval Oral Care Ability Standby Assistance Areas of Assistance Retrieving/Set-Up of Items OT ADL-Dressing General Eval Upper Body Dressing Ability Minimal Assistance Comments OT Dressing Comments min assist with gown; further assessment to follow OT ADL-Toileting Comments OT Toileting Comments 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; he was having RN visits 2x week to assist with womack care OT ADL-Bathing Comments OT Bathing Comments to be assessed M5 OT- IP IADL's Start: 06/23/18 08:14 Freq: Status: Active Protocol: Document 06/22/18 14:58 PJ (Rec: 06/23/18 09:01 [facility] [id number]) OT-Instrumental Activities of Daily Living Deficits IADL Deficits Identified Deficits Home Safety Awareness Awareness of Need for Assistance at Home Decreased Awareness Ability to Problem Solve Emergency Able to Problem Solve Situations Medication Management Medication Management Comments to be assessed; pt has cabinet installer drive him to pharmacy Money Management Money Management Comments Pt reports that he is unable to read mail or pay bills via mail due to low vision. He is concerned that he is behind on some of his payments. Notified case resolution specialist. Meal Preparation Meal Preparation Comments Pt admits to burning self when pouring hot liquids. Pt bought new one cup jewelry model maker but cannot figure out how to use it due to low vision. Pt reports using stove top for cooking which is safety hazard due to low vision. Fabric Stretcher Fabric Stretcher Comments Per case resolution specialist notes, the home health agency reported pt 's home very dirty. Driving Driving Caregiver Provides Assist Driving Comments Pt hires cabinet installer or granddaughter has assisted in the past. M6 OT- IP Functional Cognition Start: 06/23/18 08:14 Freq: Status: Active Protocol: Document 06/22/18 14:58 PJM (Rec: 06/23/18 09:01 [facility] [id number]) Cognitive Factors Limiting Selfcare Function Cognitive Ability Level of Alertness Alert Patient Orientation Name Month Date Year Place Situation Attention Span Ability Capable of Focused Attention Capable of Sustained Attention Ability to Follow Commands Able to Follow One Step Commands Safety Awareness Underestimates Need for Assistance Problem Solving Ability Needs Assist to Identify Solutions Cognitive Comments Cognitive Assessment Comments Pt has decreased insight into several potential safety issues at home. OT- Vision and Hearing OT- Hearing Assessment OT- Hearing Assessment [facility] OT- Vision Assessment Vision Assessment Comments Pt is legally blind and states he sees shadows only. He states he needs B cataract surgery. M7 OT- IP Mobility and Balance Start: 06/23/18 08:14 Freq: Status: Active Protocol: Document 06/22/18 14:58 PJM (Rec: 06/23/18 09:01 [facility] [id number]) OT- Bed Mobility Assessment Rolling Type of Rolling Roll to Left Level of Assistance Standby Assistance Supine to Sit Supine to Sit Assist Standby Assistance Head of Bed Elevated Scooting Scooting to Edge of Bed Standby Assistance OT-Transfer Assessment Sit to and From Stand Sit to and from Stand Contact Guard Assistance Transfers Transfer Ability Contact Guard Assistance Technique Transfer Destination Chair Transfer Technique Stand Step Pivot Devices Transfer Assistive Devices Gait Belt Front Wheeled Walker Comments Mobility Comments Pt needs verbal and tactile cues with FWW due to low vision. OT- Gait Assessment Comments Gait Ability Comments See P.T. notes OT- Balance Assessment Comments Other Balance Tests/Deviations/Treatment See P.T. notes : M8 OT- IP Objective Assessments Start: 06/23/18 08:14 Freq: Status: Active Protocol: Document 06/22/18 14:58 PJM (Rec: 06/23/18 09:01 [facility] [id number]) OT Gross Range of Motion Upper Extremity Range of Motion Assessment Within Functional Limits OT Strength Upper Extremity Strength Assessment Within Functional Limits Hand Maintenance Machine Repairer Strength Hand Dominance Right OT- Coordination Assessment Comments Coordination Comments Coordination impaired by low vision. OT-Muscle Tone Assessment Muscle Tone WNL Yes OT Sensation Assessment Comments Summary Comments WNL BUE per pt report Edema Edema Absent M9 OT- IP Assessment and Plan Start: 06/23/18 08:14 Freq: Status: Active Protocol: Document 06/22/18 14:58 WILLIAM (Rec: 06/23/18 09:01 WILLIAM [id number]) OT Summary Assessment and Plan Potential Analytic Complexity at Evaluation Low Summary OT Impairments Functional Cognition Functional Mobility Dressing Toileting Bathing Toilet Transfers Shower Transfers Assessment Summary Moderate complexity OT assessment completed. Pt's major functional deficit is very low vision with pt stating he can see shadows only. Visual deficits interfere with all functional mobility, self care tasks and present a significant safety issue during hot meal preparation, with pt reporting that he has burned himself. Low vision also interferes with tasks such as medication management, bill paying, cleaning and laundry. Pt currently needs assist with these IADL tasks for safety. business segment manager currently contacting granddaughter to see how much assist pt can provide at discharge. Recommend SNF vs home with assistance depending on how much assist family can provide and if pt clears P.T. for independent functional mobility. Alos recommend [employer] call system for emergencies Goals Dressing Goal Independent Toileting Goal Independent Bathing Goal Standby Assistance Hand Held Shower Sprayer Toilet Transfer Goal Contact Guard Assistance Shower Transfer Goal Contact Guard Assistance Frequency of Treatment Frequency Of Treatment Once a Day Treatment Plan OT Treatment Plan ADL Training Functional Mobility Patient/Family Education Discharge Planning Other Treatment Recommendations and Next up to sink, shower; needs CGA Treatment Focus here deu to very low vision; will have permanent womack Discharge Recommendations OT Discharge Recommendations SNF Rehab Other Discharge Recommendations vs home with assistance for meal prep, meds, finances, cleaning, laundry, transport, SBA for shower
[2018-06-22 15:06] LABS: Clostridium Difficile Tox PCR Positive for C. diff
--- NOTE | 2018-06-22 15:23 | PT.IPTN ---
Current Diagnoses Infection and inflammatory reaction due to indwelling urethral catheter, initial encounter (06/21/18) Physical Therapy Treatment Note M2 PT-IP Current Condition Start: 06/22/18 10:05 Freq: NEEDED Status: Active Protocol: Document 06/22/18 10:10 HH (Rec: 06/22/18 11:53 [id number]) Physical Therapy Current Condition Current Condition Evaluation Date 06/22/18 Treatment Diagnosis Diarrhea, generalized muscle weakness Onset Date 06/20/18 Precautions Other Precautions Pt is legally blind M3 PT-IP Subjective Start: 06/22/18 10:05 Freq: NEEDED Status: Active Protocol: Document 06/22/18 15:10 GGD (Rec: 06/22/18 15:23 GGD [email or web address]) Subjective Physical Therapy Visit Type Type Treatment Note Visit Start Time 14:45 Visit Stop Time 15:10 Total Visit Minutes 25 Number of VICE PRESIDENT SUPPLY CHAIN Visits 1 Physical Therapy Visit Comments Patient Comments Pt states he needs to use the bathroom. M4 PT-IP Mobility and Gait Start: 06/22/18 10:05 Freq: NEEDED Status: Active Protocol: Document 06/22/18 15:10 GGD (Rec: 06/22/18 15:23 GGD [email or web address]) PT-Bed Mobility Assessment Supine to Sit Supine to Sit Standby Assistance Sit to Supine Sit to Supine Standby Assistance Scooting Scooting to Edge of Bed Standby Assistance PT-Transfer Assessment Sit to and From Stand Sit to and from Stand Standby Assistance Use of Upper Extremities Equipment Transfer Assistive Device Gait Belt Standard Walker Transfers Transfer Destination Bed Toilet Transfer Ability Level of Assist Contact Guard Assistance Comments Mobility Comments tactile and verbal cues are required because pt is legally blind. Gait Assessment Gait Gait Assistance Required: Contact Guard Assist Distance (Feet) 120 Able to Maintain Weight Bearing Status Yes During Gait Assistive Devices Assistive Device Gait Belt Standard Walker Factors Limiting Gait Function Factors Limiting Gait Function Decreased Activity Tolerance Comments Gait Comments Pt needing max cues for FWW management and directional guidance. M5 PT-IP Objective Assessments Start: 06/22/18 10:05 Freq: NEEDED Status: Active Protocol: Document 06/22/18 10:10 HH (Rec: 06/22/18 11:53 [id number]) Orientation Orientation/Cognition Level of Alertness Alert Orientation Name Age Birthday Month Date Year Day of Week Place Gross Range of Motion Upper Extremity ROM Assessment Within Functional Limits Lower Extremity ROM Assessment Within Functional Limits Strength Upper Extremity Strength Assessment Within Functional Limits Coordination Assessment Gross Coordination Gross Coordination WNL M6 PT-IP Treatment Start: 06/22/18 10:05 Freq: NEEDED Status: Active Protocol: Document 06/22/18 10:10 HH (Rec: 06/22/18 11:53 HH [id number]) Physical Therapy Treatment Education Education Provided Precautions Safety Other Treatments Other Treatment Performed sit to stand x 4 with CGA amb 150 feet with CGA and tactile and verbal cues for directional guidance. M7 PT-IP Assessment and Plan Start: 06/22/18 10:05 Freq: NEEDED Status: Active Protocol: Document 06/22/18 15:10 GGD (Rec: 06/22/18 15:23 GGD [email or web address]) PT Summary Assessment and Plan Summary Assessment Summary Pt safe with bed mobility. He did need cues for all ambulation due to low vision. He was stable with gait with FWW, but at base line uses 4WW for longer distance and SPC in home. Frequency of Treatment Frequency Of Treatment Twice a Day Treatment Plan Other Recommendations and Next Treatment 4WW and SPC ambulation, Stair Focus training. Recommendations To Nursing Amount of Assist Needed 1 Person Assist Discharge Recommendations PT Discharge Recommendations Home with Assistance Home Health
[2018-06-23] VITALS (10 sets, daily range): BP systolic 133–186; BP diastolic 69–92; PULSE 73–84; RESP 18–20; TEMP 36–37; O2SAT 94–98
[2018-06-23] MEDS: LACTATED RINGERS 1,000 ML 100 ML IV (01:03)
[2018-06-23] MEDS: metroNIDAZOLE 500 MG/100 ML PIGGYBACK 100 MG IV ×2 (01:03→10:26)
[2018-06-23] MEDS: CIPROFLOXACIN 400 MG/200 ML PIGGYBACK 200 MG IV (06:06)
[2018-06-23 06:25] LABS: Add Manual Diff / Slide Review NO; Eosinophils Percent Auto 3.9 % (2-4); Hematocrit 36.9 % (41-53); Hemoglobin 12.3 g/dL (13.5-17.5); Lymphocytes Percent Auto 11.5 % (25-40); Mean Corpuscular HGB Conc 33.4 % (30-36); Mean Corpuscular Hemoglobin 28.3 PG (26-34); Mean Corpuscular Volume 84.8 fL (80-100); Neutrophils Absolute Auto 7200 /uL (3000-5900); Neutrophils Percent Auto 76.6 % (50-75); Platelet Count 262 X10^3/uL (150-400); Red Blood Cell Count 4.36 X10^6/uL (4.5-5.9); Red Cell Distribution Width 14.1 % (11.6-14.8); White Blood Cell Count 9.4 X10^3/uL (4.5-11.0)
[2018-06-23 06:28] LABS: Alanine Aminotransferase 21 IU/L (21-72); Albumin 3.1 g/dL (3.5-5.0); Alkaline Phosphatase 256 U/L (38-126); Aspartate Aminotransferase 19 IU/L (17-59); BUN Creatinine Ratio 18.9 (6-22); Bilirubin Total 0.3 mg/dL (0.2-1.3); Blood Urea Nitrogen 36 mg/dL (9-20); Calcium 8.5 mg/dL (8.4-10.2); Carbon Dioxide 25 mmol/L (22-32); Chloride 105 mmol/L (98-107); Estimated Glomerular Filt Rate 34.3 mL/min (>60); Globulin 3.1 g/dL (1.7-4.1); Glucose 176 mg/dL (80-110); HEMOLYSIS < 15 (0-50); Magnesium 1.9 mg/dL (1.6-2.3); Phosphorous 2.5 mg/dL (2.3-3.7); Potassium 3.4 mmol/L (3.4-5.1); Sodium 139 mmol/L (137-145); Total Protein 6.2 g/dL (6.3-8.2)
--- NOTE | 2018-06-23 07:45 | PC.NURSE ---
assistant shift supervisor [phone]: [employer] reported BP 184/84. Pt assessed. None symptomatic. Rechecked BP at 0610 176/81. Will re-evaluate BP in 30 minutes. 0645: Pt's BP 161/76. Pt complaining of IV site. Appears to have infiltrated. IV ABX and fluids on hold. Failed first attempt to place a new PIV.
[2018-06-23] MEDS: HEPARIN 5,000 UNIT/ML VIAL 5000 UNIT SUBCUT ×2 (08:43→21:36)
[2018-06-23] MEDS: INSULIN ASPART 100 UNIT/ML INSULN PEN SUBCUT ×3 (08:43→17:13)
--- NOTE | 2018-06-23 11:28 | OT.IP.TRT ---
Current Diagnoses Infection and inflammatory reaction due to indwelling urethral catheter, initial encounter (06/21/18) Occupational Therapy Treatment Note M2 OT-IP Current Condition Start: 06/23/18 08:14 Freq: Status: Active Protocol: Document 06/22/18 14:58 PJM (Rec: 06/23/18 09:01 PJM [email or web address]) Occupational Therapy Current Condition Current Condition Evaluation Date 06/23/18 Treatment Diagnosis decreased self care, mobility due to blocked womack, UTI, severe diarrhea Diagnosis Onset Date 06/21/18 Post Operative Precautions Other Precautions Pt is legally blind, fall risk M3 OT- IP Subjective and Pain Start: 06/23/18 08:14 Freq: Status: Active Protocol: Document 06/23/18 11:38 PJM (Rec: 06/23/18 12:12 PJ [email or web address]) OT- Subjective Occupational Therapy Visit Type Type Treatment Note Visit Start Time 11:10 Visit Stop Time 11:38 Total Visit Minutes 28 Notes Pt up with P.T. in bathroom when therapist arrived. Note pt is now in enteric precautions for C diff+ test result. Occupational Therapy Visit Comments Patient Comments I have to get to my eye doctor appt today at 12 or 1230. I have been waiting for that appointment for 4 months. Discussed with RN who called eye doctor office and pt does NOT have appointment any time in June per their records . Patient/Caregiver Goals to get eye surgery to improve vision so he can be more independent OT Pain Assessment Pain When Pain Assessed At Rest Pain Present Pain Present Denied Pain M4 OT- IP ADL's Start: 06/23/18 08:14 Freq: Status: Active Protocol: Document 06/23/18 11:38 PJM (Rec: 06/23/18 12:12 PJ [id number]) OT ADL-Grooming General Evaluation Grooming Ability Standby Assistance Areas Needing Assistance Retrieving/Set-up of Grooming Items Comments OT Grooming Comments verbal cues to operate automatic soap dispensor and faucet due to low vision OT ADL-Dressing General Eval Lower Body Dressing Ability Minimal Assistance Areas Needing Assistance Underpants/Brief Socks Shoes Comments OT Dressing Comments Pt needs min assist to orient clothing and help with hand placement to don brief. Total assist to thread catheter bag through leg opening of brief. Pt able to doff and don socks with SBA and min- verbal cues. Pt needs assist to orient velcro closure shoes, then SBA to don them seated in chair. OT ADL-Toileting General Evaluation Toileting Ability Minimal Assistance Areas Needing Assistance Manage Clothing Perform Perineal Hygiene M5 OT- IP IADL's Start: 06/23/18 08:14 Freq: Status: Active Protocol: Document 06/23/18 11:38 PJM (Rec: 06/23/18 12:12 PJM [email or web address]) OT-Instrumental Activities of Daily Living Home Safety Awareness Home Safety Comments Pt able to demonstrate use of his flip phone to call family members which he has on speed dial. 3 buttons have been marked with pads to assist with pt locating correct numbers by touch. Pt able to identify 911 as emergency number. Medication Management Medication Management Comments Pt will need supervision/ assist due to low vision Money Management Money Management Comments Pt will need supervision/ assist due to low vision Meal Preparation Meal Preparation Comments Pt will need assist due to low vision Apprenticeship Representative Apprenticeship Representative Comments Pt will need assist due to low vision Driving Driving Comments Pt will need assist due to low vision M6 OT- IP Functional Cognition Start: 06/23/18 08:14 Freq: Status: Active Protocol: Document 06/23/18 11:38 PJM (Rec: 06/23/18 12:12 PJM [email or web address]) Cognitive Factors Limiting Selfcare Function Cognitive Ability Level of Alertness Alert Memory Description Short Term Impaired Cognitive Comments Cognitive Assessment Comments Pt appears confused about eye doctor appointment date and time. RN working with doctor's office to clarify if pt has any appointment scheduled. OT- Vision and Hearing OT- Hearing Assessment OT- Hearing Assessment Hearing Impaired OT- Vision Assessment Vision Assessment Comments Very low vision continues to interfere with all functional tasks. M7 OT- IP Mobility and Balance Start: 06/23/18 08:14 Freq: Status: Active Protocol: Document 06/23/18 11:38 PJM (Rec: 06/23/18 12:12 PJM [email or web address]) OT-Transfer Assessment Sit to and From Stand Sit to and from Stand Minimal Assistance Transfers Transfer Ability Minimal Assistance Technique Transfer Destination Chair Toilet Devices Transfer Assistive Devices Gait Belt Front Wheeled Walker Comments Mobility Comments pt needs min assist to maneuver FWW and line himself up in front of chair or toilet due to low vision OT- Gait Assessment Gait Gait Assistance Required: Contact Guard Assist Minimum Assistance Distance (Feet) 20 Assistive Devices Assistive Device Gait Belt Front Wheeled Walker Comments Gait Ability Comments assist and verbal ceus needed due to low vision OT- Balance Assessment Sitting Balance and Reactions Static Sitting Balance Ability Good Dynamic Sitting Balance Ability Good Standing Balance and Reactions Static Standing Balance Ability Good Dynamic Standing Balance Ability Fair Comments Other Balance Tests/Deviations/Treatment during lower body clothing : management with FWW M8 OT- IP Objective Assessments Start: 06/23/18 08:14 Freq: Status: Active Protocol: Document 06/22/18 14:58 PJM (Rec: 06/23/18 09:01 PJM [id number]) OT Gross Range of Motion Upper Extremity Range of Motion Assessment Within Functional Limits OT Strength Upper Extremity Strength Assessment Within Functional Limits Hand Barrel Centerer Strength Hand Dominance Right OT- Coordination Assessment Comments Coordination Comments Coordination impaired by low vision. OT-Muscle Tone Assessment Muscle Tone WNL Yes OT Sensation Assessment Comments Summary Comments WNL BUE per pt report Edema Edema Absent M9 OT- IP Assessment and Plan Start: 06/23/18 08:14 Freq: Status: Active Protocol: Document 06/23/18 11:38 PJM (Rec: 06/23/18 12:12 PJM [email or web address]) OT Summary Assessment and Plan Summary Assessment Summary Pt confused re: eye doctor appointment today, but is otherwise oriented and aware of recent events. Pt's independence during self care tasks and functional mobility continues to be limited by low vision. Pt states he has talked to his granddaughter and now agrees to d/c to her house where he will have 24 hr assist as granddaughter and her S.O. work opposite shifts. Will wait for embedded case manager to confirm this situation with granddaughter, which is a good d/c plan from OT standpoint. Goals Dressing Goal Independent Toileting Goal Independent Bathing Goal Standby Assistance Hand Held Shower Sprayer Toilet Transfer Goal Contact Guard Assistance Shower Transfer Goal Contact Guard Assistance Days to Meet Goals 5 Frequency of Treatment Frequency Of Treatment Once a Day Treatment Plan OT Treatment Plan ADL Training Functional Mobility Patient/Family Education Discharge Planning Discharge Recommendations OT Discharge Recommendations Home with 24/7 Assist
--- NOTE | 2018-06-23 11:39 | PM.PN.1 ---
Subjective Date Patient Seen: 06/23/18 Time Patient Seen: 11:39 Interval history: PATIENT IS LEGALLY BLIND SPOKE TO PATIENT WITH NURSING PRESENT NO MAJOR COMPLAINTS TODAY STATED THAT HE COULD GO AND LIVES WITH GRANDDAUGHTER NO SIGNIFICANT ISSUES OVERNIGHT Exam Vital Signs (past 8 hours): - 06/23/18 06:00 06/23/18 06:13 06/23/18 07:44 Temperature 97.6 F Pulse Rate 74 76 74 Respiratory Rate 20 Blood Pressure 174/80 H 186/88 H 161/76 H Pulse Oximetry 98 06/23/18 08:00 06/23/18 08:30 Temperature 97.4 F L Pulse Rate 78 Respiratory Rate 20 Blood Pressure 159/92 H Pulse Oximetry 97 98 Oxygen Delivery Method Room Air Oxygen Flow Rate 0 Narrative Exam Narrative: NO ACUTE DISTRESS. LEGALLY BLIND; PATIENT IS ALERT ORIENTED X2. VITAL SIGNS STABLE HEAD ATRAUMATIC NORMOCEPHALIC NECK : SUPPLE WITHOUT ADENOPATHY EYE: EOMI, PERRLA, CATARACT NOTED TO SCLERA CHEST: REGULAR RATE.. NO RUBS. PMI IS NON DISPLACED. NO MURMURS PULMONARY: DECREASED BS OVER THE BASES. MILD BIBASILAR CRACKLES NOTED; NO INCREASED DULLNESS TO PERCUSSION ABDOMEN: SOFT; NON TENDER; BS + IN ALL 4 QUAD EXTREMITIES:NO EDEMA.. NO CYANOSIS OR CLUBBING NOTED. NEURO: CRANIAL NERVES 2-12 GROSSLY INTACT. NO FOCAL NEUROLOGICAL DEFICIT NOTED. MSK: NORMAL RANGE OF MOTION FOR AGE. NO JOINT EFFUSION. SKIN: NORMAL FOR ETHNICITY; NO ECCHYMOSIS. NO LESION. GOOD TURGOR.; NORASHES : NORMAL EXTERNAL GENITALIA. GARDNER PRESENT WITH YELLOWISH URINE PSYCH : APPROPRIATE MOOD AND AFFECT. ALERT AWAKE ORIENTED X3 Objective Labs Result Diagrams: 06/23/18 05:59 06/23/18 05:59 Labs: Laboratory Results - last 24 hr 06/22/18 06/23/18 06/23/18 14:05 05:59 05:59 WBC 9.4 RBC 4.36 L Hgb 12.3 L Hct 36.9 L MCV 84.8 MCH 28.3 MCHC 33.4 RDW 14.1 Plt Count 262 Neut % (Auto) 76.6 H Lymph % (Auto) 11.5 L [place] % (Auto) 7.0 Eos % (Auto) 3.9 Baso % (Auto) 1.0 Neut # (Auto) 7200 H Sodium 139 Potassium 3.4 Chloride 105 Carbon Dioxide 25 BUN 36 H Creatinine 1.90 H Estimated GFR 34.3 L BUN/Creatinine Ratio 18.9 Glucose 176 H Calcium 8.5 Phosphorus 2.5 D Magnesium 1.9 Total Bilirubin 0.3 AST 19 ALT 21 Alkaline Phosphatase 256 H Total Protein 6.2 L Albumin 3.1 L Globulin 3.1 Albumin/Globulin Ratio 1.0 C. difficile Tox (PCR) Positive for c. diff H Assessment & Plan Plan: Assessment/Plan Narrative: IMPRESSION AND PLAN UTI VS PYELONEPHRITIS; ACUTEAND POA ; LIKELY DUE TO GARDNER CATH PLACED OUTPATIENT ; CONT CIPRO FOR NOW ; CX RESULTED AND SENSITIVITY NOTED; ENTEROBAC ; AWAITING ID AND SENSITIVITY REPORTS; POSS SEPSIS WITH SOURCE BEING THE URINE; POA; RESOLVING; ON CIPRO; ; ADJUST ABX INDICATED; DC IVF PATIENT [facility] PO WELL AND VS ARE STABLE. 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
--- NOTE | 2018-06-23 12:02 | PM.DS.1 ---
History of Present Illness Date Patient Seen: 06/23/18 Time Patient Seen: 07:55 Chief complaint: Diarrhea Narrative: Patient presents with the obstruction to his urinary catheter and new onset diarrhea. He states that he had his catheter placed about 2 weeks ago because he had difficulty with urination he states that this was due to his inguinal hernia catheter was placed 2 weeks ago he says he has been having problem with the catheter he is having been having pain and burning from the catheter ever since then. He started having difficulty with drainage of the catheter yesterday and he also notes that he was placed on antibiotic by his primary care doctor sometime last week for urinary infection. Early this morning copious amounts of diarrhea started he has been having diarrhea all day uncontrollable. He lives alone caregiver came in and had him come into the ER for evaluation due to the above-mentioned problems. The patient has been here in the emergency room since early this afternoon however he is unable to recall any of his medications and no one has been able to produce any type of list of medication. Discharge Providers Date of admission: 06/21/18 17:15 Consults: 06/21/18 17:27 Consult to Occupational Therapy Evaluate & Treat Comment: Physician Instructions: Evaluate and treat 06/21/18 17:28 Consult to Discharge Planning Routine Comment: Consult to Physical Therapy Evaluate & Treat Comment: Physician Instructions: Evaluate and Treat Discharge provider: Hiwot Brooks DO Discharge Date: 06/23/18 Summary Discharge Diagnosis: ENTEROBACTER UTI; DC ON CITRO URINARY RETENTION; CHRONIC GARDNER; OUTPATIENT MANAGEMENT CATARACT ; CAUSING BLINDNESS; OUTPATIENT MANAGEMENT HTN PER HX DM2 PER HX ANEMIA OF CD 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; AT BASELINE Hospital Course: - PATIENT ADMITTED WITH URINARY RETENTION AND DEVELOPED PAIN AFTER A GARDNER WHICH WAS INSERTED OUTPATIENT DID NOT SEEM TO BE WORKING - HE WAS FOUND TO HAVE A UTI WELL A MALFUNCTIONING CATHETER WHICH WAS REMOVED AND A NEW ONE PLACED IN THE ED - HE WAS TREATED WITH ABX AND RESPONDED WELL TO TREATMENT - HIS ACUTE RENAL FAILURE WHICH LIKELY DUE TO POST OBSTRUCTIVE UROPATHY IMPROVED NICELY - AT THIS TIME, HE IS MEDICAL STABLE AND WILL BE DC TO HOME UNDER FAMILY CARE Status at Discharge Cognitive/behavioral status at discharge: STABLE TO HOME Functional status at discharge: uses cane/walker Overall status at discharge: patient is back to baseline Time Spent with Patient Greater than 30 minutes Exam Vital Signs (past 8 hours): - 06/23/18 06:00 06/23/18 06:13 06/23/18 07:44 Temperature 97.6 F Pulse Rate 74 76 74 Respiratory Rate 20 Blood Pressure 174/80 H 186/88 H 161/76 H Pulse Oximetry 98 06/23/18 08:00 06/23/18 08:30 Temperature 97.4 F L Pulse Rate 78 Respiratory Rate 20 Blood Pressure 159/92 H Pulse Oximetry 97 98 Oxygen Delivery Method Room Air Oxygen Flow Rate 0 Narrative Exam Narrative: NO ACUTE DISTRESS. LEGALLY BLIND; PATIENT IS ALERT ORIENTED X2. VITAL SIGNS STABLE HEAD ATRAUMATIC NORMOCEPHALIC NECK : SUPPLE WITHOUT ADENOPATHY EYE: EOMI, PERRLA, CATARACT NOTED TO SCLERA CHEST: REGULAR RATE.. NO RUBS. PMI IS NON DISPLACED. NO MURMURS PULMONARY: DECREASED BS OVER THE BASES. MILD BIBASILAR CRACKLES NOTED; NO INCREASED DULLNESS TO PERCUSSION ABDOMEN: SOFT; NON TENDER; BS + IN ALL 4 QUAD EXTREMITIES:NO EDEMA.. NO CYANOSIS OR CLUBBING NOTED. NEURO: CRANIAL NERVES 2-12 GROSSLY INTACT. NO FOCAL NEUROLOGICAL DEFICIT NOTED. MSK: NORMAL RANGE OF MOTION FOR AGE. NO JOINT EFFUSION. SKIN: NORMAL FOR ETHNICITY; NO ECCHYMOSIS. NO LESION. GOOD TURGOR.; NORASHES : NORMAL EXTERNAL GENITALIA. GARDNER PRESENT WITH YELLOWISH URINE PSYCH : APPROPRIATE MOOD AND AFFECT. ALERT AWAKE ORIENTED X3 Objective Labs Result Diagrams: 06/23/18 05:59 06/23/18 05:59 Labs: Laboratory Results - last 24 hr 06/22/18 06/23/18 06/23/18 14:05 05:59 05:59 WBC 9.4 RBC 4.36 L Hgb 12.3 L Hct 36.9 L MCV 84.8 MCH 28.3 MCHC 33.4 RDW 14.1 Plt Count 262 Neut % (Auto) 76.6 H Lymph % (Auto) 11.5 L [place] % (Auto) 7.0 Eos % (Auto) 3.9 Baso % (Auto) 1.0 Neut # (Auto) 7200 H Sodium 139 Potassium 3.4 Chloride 105 Carbon Dioxide 25 BUN 36 H Creatinine 1.90 H Estimated GFR 34.3 L BUN/Creatinine Ratio 18.9 Glucose 176 H Calcium 8.5 Phosphorus 2.5 D Magnesium 1.9 Total Bilirubin 0.3 AST 19 ALT 21 Alkaline Phosphatase 256 H Total Protein 6.2 L Albumin 3.1 L Globulin 3.1 Albumin/Globulin Ratio 1.0 C. difficile Tox (PCR) Positive for c. diff H Discharge Plan Discharge Plan Patient Disposition: Home Discharge comment: DC TO HOME'ACT [facility] CARDIAC/RENAL DIET F/U WITH PCP 3-10 DAYS Discharge Med Rec/Prescriptions Prescriptions: New potassium chloride 10 mEq capsule, extended release 10 meq PO DAILY Qty: 60 RF: 0 ciprofloxacin HCl 500 mg tablet 500 mg PO Q12H 7 Days Qty: 14 RF: 0 Continue amlodipine 10 mg Tablet 10 mg PO DAILY RF: 0 aspirin 81 mg Tablet,Chewable 81 mg PO DAILY RF: 0 carvedilol 12.5 mg Tablet 12.5 mg PO BID RF: 0 furosemide [Lasix] 20 mg Tablet 20 mg PO DAILY RF: 0 tamsulosin [Flomax] 0.4 mg Capsule 0.4 mg PO DAILY RF: 0 Provider Discharge Instructions Diet: Low-fat, Low-sodium and Low-cholesterol Skin/Wound/Dressing Care Report to your healthcare provider any signs of infection, such as:: chills, fever, night sweats, increased pain, unusual drainage and unusual redness Visit Report/Discharge Packet Instructions: Urinary Tract Infection, Ciprofloxacin Visit Report Forms: Stroke Signs & Symptoms Discharge Data Attending Provider: Hiwot Brooks Admit Date/Time: 06/21/18 17:15
--- NOTE | 2018-06-23 12:17 | CM.DPC ---
Addendum entered by Judit Negron LPN 06/23/18 12:58: Did call early this morning to check on pt's snf benefits as he had recently been at [facility] and with Medicare but no supplement. At that point it was very unclear if pt had any option to return to [place]'s home or if he would agree to same. Heena confirmed that pt has been at [facility] for a total of 32 days with a d/c on 04/18/18 to [place]'s home. He was offered option of medicaid application before the day 20 to help with the copay day 21 and > but he reportedly declined this. He owes [facility] $2000 and would not be accepted there again unless this issue was resolved. Original Note: Addendum entered by Judit Negron LPN 06/23/18 12:44: [place] W[place]: POA: [phone] Original Note: DCP: continued: Case discussed in Team Rounds and again with OT/PT team who voice multiple concerns re pt's safety in terms of living alone in his trailer. + c diff is now noted and pt on treatment for same. Dr. Ornelas reports pt is stable for a d/c to home setting if he has the appropriate support. Called pt's grand-daughter [place] . She confirms pt has given her POA but it is only for when he cannot make any of his own decisions. She has the paperwork and will make this available to hospital and Laura . She reports that pt tells her her will only stay with her for 3 days and then wants to go back to his trailer. She has spoken to [employer] in the past about the unsafe living situation pt has when he is living there by himself but they tell me there is nothing they can do. She will call them again if he insists upon doing this again. Laura is updated also. Malu and her staff confirm that Laura discussed calling [facility] and it was thought by Laura that this was done but it was not. They will do this again if they find pt in an unsafe situation. Clinical notes are sent not to Laura as well as resume orders. Laura will call [place] and obtain her address and discuss the overall all plan with her. [place] will pick pt up after she gets off work in [place]/she should be here about 7pm. JASON An was updated. She expressed concern re an eye appt that pt apparently had today for a possible retinal procedure. Pt was very anxious re this. Nataliya spoke with [facility] and confirmed that a piece of equipment needed was not available yet and this appt would be scheduled for early next week. Met with pt to go over above. He says he does understand that the physician is releasing him to the care of his grandaughter and her 's home and that going back to his trailer at this point is considered to be an unsafe d/c. P: home this evening to [place]'s care and Laura BING[place]
--- NOTE | 2018-06-23 12:38 | CM.DPC ---
Referral faxed to [facility]
[2018-06-23] MEDS: POTASSIUM CHLORIDE 20 MEQ TAB 40 MEQ PO (12:40)
[2018-06-23] MEDS: TAMSULOSIN 0.4 MG CAPSULE PO (12:40)
[2018-06-23] MEDS: AMLODIPINE 5 MG TABLET 10 MG PO (12:40)
[2018-06-23] MEDS: ASPIRIN EC 81 MG TABLET PO (12:49)
--- NOTE | 2018-06-23 13:16 | PT.IPTN ---
Current Diagnoses Infection and inflammatory reaction due to indwelling urethral catheter, initial encounter (06/21/18) Physical Therapy Treatment Note M2 PT-IP Current Condition Start: 06/22/18 10:05 Freq: NEEDED Status: Active Protocol: Document 06/23/18 12:57 (Rec: 06/23/18 13:16 [id number]) Physical Therapy Current Condition Current Condition Evaluation Date 06/22/18 Treatment Diagnosis Diarrhea, generalized muscle weakness Onset Date 06/20/18 Precautions Other Precautions Pt is legally blind, fall risk M3 PT-IP Subjective Start: 06/22/18 10:05 Freq: NEEDED Status: Active Protocol: Document 06/23/18 12:57 (Rec: 06/23/18 13:16 [id number]) Subjective Physical Therapy Visit Type Type Treatment Note Visit Start Time 10:45 Visit Stop Time 11:30 Total Visit Minutes 45 Physical Therapy Visit Comments Patient Comments Pt agreeable to mobilize with PT. Pt states no pain at all and did not have diarrhea since he was admitted. Pt reports he did amb and went to bathroom during the night. Pt also stats he will get an eye surgery for his cataract and he is going to be D/C to his granddaughter's home. Pt's son and grand daughter will be able to be caregivers for day and night time. Therapy Pain Assessment Pain Present Pain Present Denied Pain M4 PT-IP Mobility and Gait Start: 06/22/18 10:05 Freq: NEEDED Status: Active Protocol: Document 06/23/18 12:57 (Rec: 06/23/18 13:16 [id number]) PT-Bed Mobility Assessment Scooting Scooting to Edge of Bed Independent Scooting Up and Down in Bed Independent PT-Transfer Assessment Sit to and From Stand Sit to and from Stand Standby Assistance Use of Upper Extremities Equipment Transfer Assistive Device Front Wheeled Walker Transfers Transfer Destination Chair Toilet Transfer Ability Level of Assist Standby Assistance Use of Upper Extremities Comments Mobility Comments Sit to stand with FWW SBA. Pt required verbal cues to locate chair and armrests. Toilet transfer with grab bars , FWW SBA/CGA Gait Assessment Gait Gait Assistance Required: Standby Assistance Distance (Feet) 300 Able to Maintain Weight Bearing Status Yes During Gait Assistive Devices Assistive Device Gait Belt Front Wheeled Walker Gait Deviations General Gait Pattern Decreased Stride Length Decreased Feet Clearance Factors Limiting Gait Function Factors Limiting Gait Function Poor Safety Awareness Comments Gait Comments Pt amb 300 feet with FWW SBA without c/o fatigue and weakness. Pt cont required v.c . and tactile cues for directional guidance due to his poor vision. Pt also cont demonstrated decreased stride length and feet clearance due to his poor vision but he did not present any sign of LOB during the whole tx session. Stair Climbing Assessment Evaluation Level of Assist On Stairs Standby Assistance Devices Stair Climbing Assistive Devices Left Railing Right Railing Technique/Endurance Stair Climbing Direction Ascend and Descend Stair Climbing Technique Step to Step Number of Steps Climbed 3 Query Text: Stair Climbing Set # Repetitions (reps) 4 Comments Stair Climbing Comments Pt demonstrates step to pattern with bilateral handrails for stability and tactile feedback due to his poor vision. Pt did not show signs of LOB. But he did require verbal cues for number of steps remaining. PT-Balance Assessment Sitting Balance and Reactions Static Sitting Balance Ability Normal Dynamic Sitting Balance Ability Normal Standing Balance and Reactions Static Standing Balance Ability Normal Dynamic Standing Balance Ability Normal M5 PT-IP Objective Assessments Start: 06/22/18 10:05 Freq: NEEDED Status: Active Protocol: Document 06/23/18 12:57 (Rec: 06/23/18 13:16 [id number]) Orientation Orientation/Cognition Level of Alertness Alert Gross Range of Motion Upper Extremity ROM Assessment Within Functional Limits Lower Extremity ROM Assessment Within Functional Limits Strength Upper Extremity Strength Assessment Within Functional Limits Lower Extremity Strength Assessment Within Functional Limits Coordination Assessment Gross Coordination Gross Coordination WNL M6 PT-IP Treatment Start: 06/22/18 10:05 Freq: NEEDED Status: Active Protocol: Document 06/23/18 12:57 (Rec: 06/23/18 13:16 [id number]) Physical Therapy Treatment Other Treatments Other Treatment Performed sit to stand x 5 with SBA FWW toilet transfer with grab bars , FWW SBA/CGA M7 PT-IP Assessment and Plan Start: 06/22/18 10:05 Freq: NEEDED Status: Active Protocol: Document 06/23/18 12:57 (Rec: 06/23/18 13:16 [id number]) PT Summary Assessment and Plan Potential Rehabilitation Potential Excellent Status of Condition at Evaluation Stable Summary Impairments Sensation Progress Towards Goals Progressing Toward Goals Assessment Summary Pt progress well toward goals. Pt amb 300 feet today with FWW SBA and negotiate 3 steps x 4 set with constant verbal cues and tactile cues for directional guidance and location for armrest/handrails . Pt reached his PLOF and he is going to be D/c to his granddaughter home today who has pt's son and his granddaughter to be caregiver for both day and night time. Pt's granddaughter will receive CG training before D/C . Goals Days to Meet Goals 1 Treatment Plan Other Recommendations and Next Treatment Pt CG training for pt's safety Focus awareness. Recommendations To Nursing Amount of Assist Needed Standby Assistance 1 Person Assist Discharge Recommendations PT Discharge Recommendations Home with 24/ Assist
--- NOTE | 2018-06-23 16:30 | PT.IPTN ---
Current Diagnoses Infection and inflammatory reaction due to indwelling urethral catheter, initial encounter (06/21/18) Physical Therapy Treatment Note M2 PT-IP Current Condition Start: 06/22/18 10:05 Freq: NEEDED Status: Active Protocol: Document 06/23/18 14:10 HH (Rec: 06/23/18 16:29 [email or web address]) Physical Therapy Current Condition Current Condition Evaluation Date 06/22/18 Treatment Diagnosis Diarrhea, generalized muscle weakness Onset Date 06/20/18 Precautions Other Precautions Pt is legally blind, fall risk Weight Bearing Status Weight Bearing Status Weight Bear as Tolerated M3 PT-IP Subjective Start: 06/22/18 10:05 Freq: NEEDED Status: Active Protocol: Document 06/23/18 14:10 HH (Rec: 06/23/18 16:29 [email or web address]) Subjective Physical Therapy Visit Type Type Treatment Note Visit Start Time 14:10 Visit Stop Time 14:50 Total Visit Minutes 30 Notes Pt agreeable to mobilize with PT. Pt states no pain and diarrhea at all. Pt is going to be d/c to her grand daughter's home tonight after 7 PM tonight. Physical Therapy Visit Comments Patient Comments Patient reports I was a little tired after the morning tx session but i will walk with you again. I also have a 4 WW so i could use it at home and outside M4 PT-IP Mobility and Gait Start: 06/22/18 10:05 Freq: NEEDED Status: Active Protocol: Document 06/23/18 14:10 HH (Rec: 06/23/18 16:29 [email or web address]) PT-Bed Mobility Assessment Scooting Scooting to Edge of Bed Independent PT-Transfer Assessment Sit to and From Stand Sit to and from Stand Standby Assistance Use of Upper Extremities Equipment Transfer Assistive Device Front Wheeled Walker Transfers Transfer Destination Chair Transfer Ability Level of Assist Standby Assistance Use of Upper Extremities Comments Mobility Comments Pt performs sit to stand x 5 with FWW CGA; bed and chair transfer x2 with FWW CGA. Pt requires constant v.c. and t.c . for directional guidance. Gait Assessment Gait Gait Assistance Required: Standby Assistance Distance (Feet) 300 Able to Maintain Weight Bearing Status Yes During Gait Assistive Devices Assistive Device Gait Belt Front Wheeled Walker Gait Deviations General Gait Pattern Decreased Stride Length Decreased Feet Clearance Factors Limiting Gait Function Factors Limiting Gait Function Decreased Activity Tolerance Decreased Sensation Poor Safety Awareness Comments Gait Comments pt amb 300 feet again with FWW CGA after morning session. Pt did not apprear distress or show any sign of LOB / fatigue . Pt requires CGA and v.c./t.c . for directional guidance. PT-Balance Assessment Sitting Balance and Reactions Static Sitting Balance Ability Normal Dynamic Sitting Balance Ability Normal Standing Balance and Reactions Static Standing Balance Ability Normal Dynamic Standing Balance Ability Good M5 PT-IP Objective Assessments Start: 06/22/18 10:05 Freq: NEEDED Status: Active Protocol: Document 06/23/18 14:10 HH (Rec: 06/23/18 16:29 [email or web address]) Strength Upper Extremity Strength Assessment Within Functional Limits Lower Extremity Strength Assessment Within Functional Limits M6 PT-IP Treatment Start: 06/22/18 10:05 Freq: NEEDED Status: Active Protocol: Document 06/23/18 14:10 HH (Rec: 06/23/18 16:29 [email or web address]) Physical Therapy Treatment Education Education Provided Precautions Safety Other Treatments Other Treatment Performed safety education on how to use the wall to stabilize his 4WW for sit to stand activity M7 PT-IP Assessment and Plan Start: 06/22/18 10:05 Freq: NEEDED Status: Active Protocol: Document 06/23/18 14:10 HH (Rec: 06/23/18 16:29 [email or web address]) PT Summary Assessment and Plan Potential Rehabilitation Potential Excellent Status of Condition at Evaluation Stable Summary Impairments Transfers Gait Activity Tolerance Progress Towards Goals Progressing Toward Goals Assessment Summary Pt reached his PLOF without any signs of distress and fatigue after ambulation >300 feet. Pt is going to be d/c to his grand daughter's home tonight after 7pm. Pt is recommended to use his FWW or 4 WW at all times for home and community mobility. Pt also seems to have a better vision with darker environment due to his cataract. Communicated with JASON Smith and A note has left in his d/c packet regarding the 2 recommendations from above for fall prevention. Airworthiness Inspector Judit reported pt will have 2 CG at home to take care of pt . Frequency of Treatment Frequency Of Treatment Discharge Recommendations To Nursing Amount of Assist Needed 1 Person Assist Discharge Recommendations PT Discharge Recommendations Home with Assistance Home with 24/7 Assist
--- NOTE | 2018-06-23 18:55 | PC.NURSE ---
Granddaughter called at 1840 to let us know that she is unable to pick this patient up tonight. But stated she will be here first thing in the morning. Patient aware that he is staying one more night in the hospital.
--- NOTE | 2018-06-23 19:20 | PC.NURSE ---
Addendum entered by Floresita Peacock R.N. 06/23/18 23:00: Pt had uneventful evening. Denies discomfort. Resting at intervals. HS CBG = 169, no coverage required. Call light w/in reach, bed alarm on for pt safety. Continue w/plan of care. Original Note: Pt denies any discomfort at this time. Pt was suposse to go home this evening w/ Stevan peter called, unable to pick pt up due to dog dying. Pt HL had been D/C'd earlier pending D/C. AC CBG = 146, 2u insulin given as per S/S. Conxdition remains essentialy unchanged. Call light w/in reach, bed alarm on form pt safety
[2018-06-23] MEDS: CARVEDILOL 12.5 MG TABLET PO (21:36)
[2018-06-24 00:59] VITALS: BP 157/77; PULSE 77; RESP 14; TEMP 36.3; O2SAT 97
[2018-06-24 04:20] VITALS: BP 189/86; PULSE 78; RESP 18; TEMP 36.9; O2SAT 96
[2018-06-24 07:00] VITALS: BP 182/87; PULSE 77; RESP 18; TEMP 36.6; O2SAT 94; O2SAT 98
[2018-06-24] MEDS: CARVEDILOL 12.5 MG TABLET PO (10:03)
[2018-06-24] MEDS: AMLODIPINE 5 MG TABLET 10 MG PO (10:03)
[2018-06-24] MEDS: ASPIRIN EC 81 MG TABLET PO (10:04)
[2018-06-24] MEDS: TAMSULOSIN 0.4 MG CAPSULE PO (10:05)
[2018-06-24] MEDS: VANCOMYCIN 125 MG CAPSULE PO (10:06)
[2018-06-24] MEDS: HEPARIN 5,000 UNIT/ML VIAL 5000 UNIT SUBCUT (10:06)
[2018-06-24] MEDS: NITROFURANTOIN 50 MG CAPSULE PO (10:12)
--- NOTE | 2018-06-24 10:53 | PM.PN.1 ---
Subjective Date Patient Seen: 06/24/18 Time Patient Seen: 11:01 Interval history: FEELING OK WOULD LIKE TO GO HOME NO FEVER OR CHILLS NO OTHER COMPLAINTS Exam Vital Signs (past 8 hours): - 06/24/18 04:20 06/24/18 07:00 Temperature 98.4 F 97.8 F Pulse Rate 78 77 Respiratory Rate 18 18 Blood Pressure 189/86 H 182/87 H Pulse Oximetry 96 94 Oxygen Delivery Method Room Air Oxygen Flow Rate 0 Narrative Exam Narrative: NO ACUTE DISTRESS. PATIENT IS ALERT ORIENTED X3. LEGALLY BLIND VITAL SIGNS STABLE HEAD ATRAUMATIC NORMOCEPHALIC NECK : SUPPLE WITHOUT ADENOPATHY EYE: EOMI, PERRLA, NORMAL CONJUNCTIVA CHEST: REGULAR RATE.. NO RUBS. PMI IS NON DISPLACED. NO MURMURS PULMONARY: DECREASED BS OVER THE BASES. MILD BIBASILAR CRACKLES NOTED; NO INCREASED DULLNESS TO PERCUSSION ABDOMEN: SOFT; NON TENDER; BS + IN ALL 4 QUAD EXTREMITIES:NO EDEMA.. NO CYANOSIS OR CLUBBING NOTED. NEURO: CRANIAL NERVES 2-12 GROSSLY INTACT. NO FOCAL NEUROLOGICAL DEFICIT NOTED. MSK: NORMAL RANGE OF MOTION FOR AGE. NO JOINT EFFUSION. SKIN: NORMAL FOR ETHNICITY; NO ECCHYMOSIS. NO LESION. GOOD TURGOR.; NORASHES : NORMAL EXTERNAL GENITALIA. PSYCH : APPROPRIATE MOOD AND AFFECT. ALERT AWAKE ORIENTED X 3; Objective Labs Result Diagrams: 06/23/18 05:59 06/23/18 05:59 Assessment & Plan Plan: Assessment/Plan Narrative: IMPRESSION AND PLAN UTI VS PYELONEPHRITIS; ACUTE AND POA ; LIKELY DUE TO GARDNER CATH PLACED OUTPATIENT; WILL START ON NITROFURANTOIN DUE TO ONGOING C DIF COLITIS ; CX RESULTED AND SENSITIVITY NOTED; ENTEROBAC C DIFF COLITIS; ON PO VANCO X 10 DAYS; CONTACT PRECAUTIONS; AVOID PPL THAT ARE IMMUNOCOMPROMISED POSS SEPSIS WITH SOURCE BEING THE URINE VS GI TRACT; POA; RESOLVING; ON CIPRO; ; ADJUST ABX INDICATED; DC IVF PATIENT MARIALUISA PO WELL AND VS ARE STABLE. 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
--- NOTE | 2018-06-24 11:08 | P.PN_ITS ---
Subjective Date Patient Seen: 06/24/18 Time Patient Seen: 11:01 Interval history: FEELING OK WOULD LIKE TO GO HOME NO FEVER OR CHILLS NO OTHER COMPLAINTS Exam Vital Signs (past 8 hours): - 06/24/18 04:20 06/24/18 07:00 Temperature 98.4 F 97.8 F Pulse Rate 78 77 Respiratory Rate 18 18 Blood Pressure 189/86 H 182/87 H Pulse Oximetry 96 94 Oxygen Delivery Method Room Air Oxygen Flow Rate 0 Narrative Exam Narrative: NO ACUTE DISTRESS. PATIENT IS ALERT ORIENTED X3. LEGALLY BLIND VITAL SIGNS STABLE HEAD ATRAUMATIC NORMOCEPHALIC NECK : SUPPLE WITHOUT ADENOPATHY EYE: EOMI, PERRLA, NORMAL CONJUNCTIVA CHEST: REGULAR RATE.. NO RUBS. PMI IS NON DISPLACED. NO MURMURS PULMONARY: DECREASED BS OVER THE BASES. MILD BIBASILAR CRACKLES NOTED; NO INCREASED DULLNESS TO PERCUSSION ABDOMEN: SOFT; NON TENDER; BS + IN ALL 4 QUAD EXTREMITIES:NO EDEMA.. NO CYANOSIS OR CLUBBING NOTED. NEURO: CRANIAL NERVES 2-12 GROSSLY INTACT. NO FOCAL NEUROLOGICAL DEFICIT NOTED. MSK: NORMAL RANGE OF MOTION FOR AGE. NO JOINT EFFUSION. SKIN: NORMAL FOR ETHNICITY; NO ECCHYMOSIS. NO LESION. GOOD TURGOR.; NORASHES : NORMAL EXTERNAL GENITALIA. PSYCH : APPROPRIATE MOOD AND AFFECT. ALERT AWAKE ORIENTED X 3; Objective Labs Result Diagrams: 06/23/18 05:59 06/23/18 05:59 Assessment & Plan Plan: Assessment/Plan Narrative: IMPRESSION AND PLAN UTI VS PYELONEPHRITIS; ACUTE AND POA ; LIKELY DUE TO GARDNER CATH PLACED OUTPATIENT; WILL START ON NITROFURANTOIN DUE TO ONGOING C DIF COLITIS ; CX RESULTED AND SENSITIVITY NOTED; ENTEROBAC C DIFF COLITIS; ON PO VANCO X 10 DAYS; CONTACT PRECAUTIONS; AVOID PPL THAT ARE IMMUNOCOMPROMISED POSS SEPSIS WITH SOURCE BEING THE URINE VS GI TRACT; POA; RESOLVING; ON CIPRO ; ; ADJUST ABX INDICATED; DC IVF PATIENT MARIALUISA PO WELL AND VS ARE STABLE. 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
--- NOTE | 2018-06-24 11:49 | CM.DPC ---
DCP Cont: Patient is discharging today. Hospitalist contacted that new discharge orders would need to be put in, since his daughter was unable to pick him up last night. Patient also is to leave here on antibiotics. Went ahead and contacted [facility], for patient is to resume care with them. Patient will also be staying with daughter for a few days before returning to [facility]. Called and spoke to Nora at [facility]. Requesting resumption orders be sent. Went ahead and faxed discharge summary, clinical notes and resumption order to them. P: Patient being discharged home today with resumption of [facility]. Irasema Weaver RN/Stock Holder
--- NOTE | 2018-06-24 12:06 | PC.NURSE ---
Addendum entered by Joie Lee R.N. 06/24/18 13:08: Iv out and Pt in w/c. Teaching provided and switched to womack leg bag. Family ([place] verbalizes understanding. and grandaughter at home, who is familiar with care.) Medication teaching provided. W/c to private vehicle. Rx's faxed to [facility] in [place], per Pt request. Original Note: Clarified home medications, prior to admission Pt not using Insulin at home. Elevated Cbg r/t infection. Improved from admission. Likely will not continue this at home, LM for [facility], as they will be following with Pt granddaughter tianna after d/c. Dr Billy reviewed, no insulin at home for discharge.
== END 2018-06-24 13:00 | disposition home health service (06) | DRG 698 ==
LOC: ED 17:11 → AC 17:16
PROVIDERS: Admitting Provider Hospitalist; Emergency Provider Emergency Medicine; Visit Provider Hospitalist
DX: T83.511A Infection and inflammatory reaction due to indwelling urethral catheter, initial encounter (principal); A41.9 Sepsis, unspecified organism; N17.9 Acute kidney failure, unspecified; A04.72 Enterocolitis due to Clostridium difficile, not specified as recurrent; I13.0 Hypertensive heart and chronic kidney disease with heart failure and stage 1 through stage 4 chronic kidney disease, or unspecified chronic kidney disease; N39.0 Urinary tract infection, site not specified; T83.091A Other mechanical complication of indwelling urethral catheter, initial encounter; R33.9 Retention of urine, unspecified; E87.6 Hypokalemia; N18.3 Chronic kidney disease, stage 3 (moderate); B95.2 Enterococcus as the cause of diseases classified elsewhere; E11.9 Type 2 diabetes mellitus without complications; I50.9 Heart failure, unspecified; E11.22 Type 2 diabetes mellitus with diabetic chronic kidney disease; H54.8 Legal blindness, as defined in USA
CPT/HCPCS: 36415; 51705; 80053; 81001; 82962; 83605; 83690; 83735; 84100; 85025; 87077; 87086; 87186; 87493; 96360; 97116; 97162; 97166; 97530; 97535; 99283; 99284; J0744; J1644; J1956

== ENCOUNTER 2018-08-31 11:18 | Day surgery (SDC) | payer MEDICARE, SELFPAY ==
[2018-08-31 11:40] VITALS: BP 165/83; PULSE 74; RESP 15; TEMP 36.3; O2SAT 98; BMI 28.3
[2018-08-31] MEDS: PROPARACAINE 0.5% OPHTH SOL 2 DROPS EYE-OP (11:56)
[2018-08-31] MEDS: CATARACT EYE COMPOUND (10 DROPS/SYRINGE) 3 DROPS EYE-OP (11:57)
--- NOTE | 2018-08-31 12:07 | PM.PREOP ---
Pre-operative Note Interval Note History & Physical reviewed/Exam performed by Physician: Yes Changes to H&P: No
[2018-08-31] MEDS: CHONDROIDTIN/SOD HYALURONATE 1.05 ML SYRINGE INTRAOCULA ×4 (13:15→13:52)
[2018-08-31] MEDS: PHENYLEPHRINE/LIDOCAINE VIAL (OR) 0.2 ML EYE-OP (13:15)
[2018-08-31] MEDS: MOXIFLOXACIN OPHTH DROPS 3 ML BOTTLE 2 DROPS INJ (13:15)
[2018-08-31] MEDS: BALANCED SALT IRRIG SOLN NO.2 15 ML IRR (13:16)
[2018-08-31] MEDS: TETRACAINE 0.5% OPHTH DROPS 4 ML 2 DROPS EYE-LEFT (13:17)
[2018-08-31] MEDS: TRYPAN BLUE 0.5 ML SYRINGE INJ (13:17)
[2018-08-31] MEDS: BALANCED SALT IRRIG SOLN NO.2 500 ML, EPINEPHrine 1 MG IRR (13:17)
[2018-08-31] MEDS: HYALURONATE SODIUM 10 MG/ML SYRINGE INJ (13:19)
[2018-08-31] MEDS: ACETYLCHOLINE 1:1000 OPHTH 2 ML 1 DROP INTRAOCULA (14:20)
[2018-08-31] MEDS: NEOMYCIN/POLY/DEX OPHTH OINT 1 APPLIC EYE-LEFT (14:37)
[2018-08-31 14:44] VITALS: BP 181/96; PULSE 76; RESP 16; TEMP 36.6; O2SAT 94
[2018-08-31 14:49] VITALS: BP 166/82; PULSE 75; RESP 20; O2SAT 94
[2018-08-31 14:54] VITALS: BP 152/65; PULSE 74; RESP 16; O2SAT 95
--- NOTE | 2018-08-31 14:57 | PM.OP.1 ---
Procedure & Clinicians Procedure: cataract extraction with intraocular lens implant, left Same procedure as scheduled: Yes Indications: Visually significant cataract Surgeon: René Camp Click Yes if Unassisted: Yes Anesthesia Type: General Operative Notes Procedure in detail: The patient was brought to the operating suite. The correct patient, surgical site and lens were confirmed. 0.5 % tetracaine drops were placed in the left eye. The patient was prepped and draped in the typical sterile manner. A lid speculum was placed in the eye. A paracentesis port was created with a side-port blade. 0.1 mL of 1% preservative free lidocaine with phenylephrine was injected into the anterior chamber. Visionblue was injected into the anterior chamber. Balanced Salt Solution was then injected into the anterior chamber. Viscoelastic was injected into the anterior chamber. A 2.6mm keratome was used to create a clear corneal temporal incision. Cystotome and Utrata forceps were used to create a continuous curvilinear capsulorrhexis. The lens capsule was noted to have several anterior plaques. Balanced salt solution was used to hydrodissect the nucleus. Phacoemulsification was used to remove the lens. At least four times the anterior chamber was refilled with viscoat to protect the endothelium during phacoemulsification. The capsular bag was inflated with viscoelastic. A [employer] [id number] +30.0D lens was inserted into the capsule. 0.1 ml of Miochol-E was injected into the anterior chamber. Viscoelastic was removed and the wound hydrated. The wound was found to be leak free and the eye was assessed to be at normal physiologic pressure. 0.1mL Vigamox was injected into the anterior chamber. The lid speculum was removed and the patient left the operating room in excellent condition. Complications: none Condition: stable Disposition: same day surgery
[2018-08-31 14:58] VITALS: BP 159/78; PULSE 73; RESP 12; TEMP 36.7; O2SAT 94
== END 2018-08-31 15:16 | disposition home or self-care (01) ==
LOC: OR 11:20
PROVIDERS: Visit Provider Ophthalmology
DX: H25.22 Age-related cataract, morgagnian type, left eye (principal)
CPT/HCPCS: J0171; J2704; J3010

== ENCOUNTER → 2018-10-05 11:53 | Outpatient (CLI) | payer MEDICARE, SELFPAY ==
--- NOTE | 2018-10-05 | DI.US.S_ITS ---
PROCEDURE: US RENAL COMPLETE INDICATIONS: HYDRONEPHROSIS TECHNIQUE: Real-time scanning was performed of the kidneys and bladder, with image documentation. COMPARISON: [facility], CT, CT KUB, 03/13/2018, 19:07. FINDINGS: Kidneys: Kidneys are normal in size. Right kidney measures 10.6 cm long; left kidney measures 12.5 cm long. Right renal cortical thickness is 1.2 cm; left renal cortical thickness is 1.3 cm. Renal cortical echotexture is normal. No hydronephrosis or nephrolithiasis. No suspicious solid mass lesions. Bladder: Bladder is contracted with a Flynn catheter Miscellaneous: No free pelvic fluid. IMPRESSION: No hydronephrosis. Dictated by: Stephania Carmona M.D. on 10/05/2018 at 14:37 Approved by: Stephania Carmona M.D. on 10/05/2018 at 14:39
== END ==
PROVIDERS: PCP Family Medicine; Visit Provider Urology
DX: N13.30 Unspecified hydronephrosis (principal)
CPT/HCPCS: 76770

== ENCOUNTER 2018-11-02 12:14 | Day surgery (SDC) | payer MEDICARE, SELFPAY ==
[2018-11-02] VITALS (8 sets, daily range): BP systolic 134–176; BP diastolic 68–84; PULSE 64–73; RESP 14–24; TEMP 36.6–36.8; O2SAT 94–97; BMI 27.8
[2018-11-02] MEDS: PROPARACAINE 0.5% OPHTH SOL 2 DROPS EYE-OP (12:42)
[2018-11-02] MEDS: CATARACT EYE COMPOUND (10 DROPS/SYRINGE) 3 DROPS EYE-OP (12:44)
--- NOTE | 2018-11-02 12:59 | PM.PREOP ---
Pre-operative Note Interval Note History & Physical reviewed/Exam performed by Physician: Yes Changes to H&P: No
[2018-11-02 13:11] LABS: BUN Creatinine Ratio 23.9 (6-22); Blood Urea Nitrogen 43 mg/dL (9-20); Calcium 8.9 mg/dL (8.4-10.2); Carbon Dioxide 26 mmol/L (22-32); Chloride 105 mmol/L (98-107); Estimated Glomerular Filt Rate 36.5 mL/min (>60); Glucose 118 mg/dL (80-110); HEMOLYSIS < 15 (0-50); Potassium 3.9 mmol/L (3.4-5.1); Sodium 140 mmol/L (137-145)
[2018-11-02] MEDS: LACTATED RINGERS 1,000 ML 42 ML IV (13:15)
[2018-11-02] MEDS: MOXIFLOXACIN OPHTH DROPS 3 ML BOTTLE 2 DROPS INJ (13:50)
[2018-11-02] MEDS: CHONDROIDTIN/SOD HYALURONATE 1.05 ML SYRINGE INTRAOCULA (13:50)
[2018-11-02] MEDS: PHENYLEPHRINE/LIDOCAINE VIAL (OR) 0.2 ML EYE-OP (13:51)
[2018-11-02] MEDS: BALANCED SALT IRRIG SOLN NO.2 500 ML, EPINEPHrine 1 MG IRR (13:51)
[2018-11-02] MEDS: TRYPAN BLUE 0.5 ML SYRINGE INJ (13:57)
[2018-11-02] MEDS: LIDOCAINE 2% INJ MDV 1 ML INJ (13:57)
[2018-11-02] MEDS: TETRACAINE 0.5% OPHTH DROPS 4 ML 2 DROPS EYE-RIGHT (13:59)
[2018-11-02] MEDS: CARBACHOL 1.5 ML VIAL INJ (15:36)
[2018-11-02] MEDS: TRIAMCINOLONE (PF) 40 MG/ML VIAL IM (15:43)
[2018-11-02] MEDS: ACETYLCHOLINE 1:1000 OPHTH 2 ML 1 DROP INTRAOCULA (16:08)
[2018-11-02] MEDS: TIMOLOL 0.5% OPHTH 2 DROPS EYE-RIGHT (16:41)
[2018-11-02] MEDS: TRIAMCINOLONE 50 MG/5 ML VIAL INJ (16:42)
[2018-11-02] MEDS: NEOMYCIN/POLY/BACITRACIN 3.5 GM OPHTH OINT 1 APPLIC EYE-RIGHT (16:42)
--- NOTE | 2018-11-02 17:16 | SUR.PHASEI ---
Pt arrived with LMA Dr Lima took out soon after arrival, placed on 02 per nasal cannula. weaned off. Dr Camp spoke with pt at bedside.
--- NOTE | 2018-11-02 17:29 | SUR.PHASEI ---
stable PACU stay to opd, granddaughter called for greens picker.
--- NOTE | 2018-11-02 17:38 | SUR.PHASEII ---
Pt brought to OPD, drank water and ate apple sauce. Report to Jean.
[2018-11-02] MEDS: ACETAMINOPHEN 325 MG TABLET 650 MG PO (17:48)
--- NOTE | 2018-11-02 18:08 | PM.OP.1 ---
Procedure & Clinicians Procedure: cataract extraction with intraocular lens implant, right Same procedure as scheduled: Yes Indications: Hypermature cataract, right eye Surgeon: René Camp Click Yes if Unassisted: Yes Anesthesia Type: General Operative Notes Procedure in detail: The patient was brought to the operating suite. The correct patient, surgical site and lens were confirmed. 0.5 % tetracaine drops were placed in the right eye. The patient was prepped and draped in the typical sterile manner. A lid speculum was placed in the eye. 2% lidocaine was placed on the eye. A paracentesis port was created with a 1mm side-port blade at 11 o'clock. 0.1 mL of 1% preservative free lidocaine with phenylephrine was injected into the anterior chamber. Vision blue was injected into the anterior chamber. This was allowed to sit for 30 seconds and then the anterior chamber was flushed with balanced salt solution. Viscoat was injected into the anterior chamber. A 2.6mm keratome was used to create a clear corneal temporal incision. Cystotome and Utrata forceps were used to create a continuous curvilinear capsulorhexis. Hydrodissection was accomplished with balanced salt solution. Phacoemulsification was used to sculpt a central groove. The nucleus was found to be extremely dense, and sculpting was difficult to perform. The nucleus was then flipped into the anterior chamber and broken into small pieces with a Fred nucleus chopper. The nucleus was then removed with phacoemulsification. During phacoemulsification the endothelium was coated multiple times with Viscoat. Residual cortex was removed with irrigation and aspiration. The capsular bag was inflated with Provisc. An Guajardo [id number] +27.0 D lens was inserted into the capsule. At this point zonular dehiscence was noted from 12 o'clock to 2 o'clock. It was felt that the lens would be more stable in the sulcus with anterior optic capture. The bag was filled again with Provisc and the sulcus was deepened with Provisc.The haptics were rotate into the sulcus and the lens optic positioned posteriorly through an intact anterior capsulorhexis. During this process zonular dehischence extended to 4 o'clock. At this point the haptics were in the sulcus, the lens was optic captured and the lens appeared stable and centered. Miochol and Miostat were injected into the anterior chamber. Triesence was injected into the anterior chamber and a small amount of vitreous was noted at the pupil margin at 3 o'clock. The main wound was sutured with two 10-0 nylon sutures. A second paracentesis with a 1.15mm side-port blade was made at 6 o'clock. Bi-manual vitrectomy was performed, and anterior vitreous and remaining visceoelastic were removed. During this process a small nasal iris defect was appreciated. Triesence was injected again into the anterior chamber and evacuated with the anterior vitrector. No vitreous was appreciated. The lens appeared centered. The paracentesis ports were hydrated. All wounds were found to be leak free and the eye was assessed to be at normal physiologic pressure. 0.1mL of Vigamox was injected into the anterior chamber. 3mg subtenon kenalog was placed inferiorly with a 30G needle. The lid speculum was removed, two drops of timolol were placed on the eye, then maxitrol was placed on the eye and the eye was pressure patched. Condition: stable Disposition: same day surgery
--- NOTE | 2018-11-03 08:38 | CM.DPNOTE ---
Late Entry/ DC Note: Pt discussed in multidisciplinary rounds yesterday morning. No barriers indicated to safe return home. No SW needs upon DC. JW
== END 2018-11-02 18:10 ==
LOC: OR 12:17
PROVIDERS: Anesthesiology; PCP Family Medicine; Visit Provider Ophthalmology
PROC: (CPT 66984; principal; 2018-11-02 13:15)
DX: H25.21 Age-related cataract, morgagnian type, right eye (principal); E11.9 Type 2 diabetes mellitus without complications; N18.3 Chronic kidney disease, stage 3 (moderate); I50.9 Heart failure, unspecified
CPT/HCPCS: 66984; 36415; 80048; 93005; 93010; J0171; J2405; J2704; J3300; J3301

== ENCOUNTER → 2020-02-28 06:57 | Outpatient (CLI) | payer MEDICARE, SELFPAY ==
--- NOTE | 2020-02-28 06:58 | DI.ECHO.S_ITS ---
[place] [facility] +---------+ : : [address] : : [place], [place] : : : : [id number] : : : : Phone: [phone]+ Echocardiogram Report + + :Name: DAJA MARTINEZ Study Date: 02/28/2020 Height: 63 in : :[facility] Weight: 178 lb : : Gender: Male BSA: 1.8 m2 : :: 1935 Age: 84 yrs BP: 158/79 mmHg: :Reason For Study: SOB : : Performed By: Meredith Gomez : :Referring: GERTRUDIS OTOOLE : + + Interpretation Summary 1) Normal left ventricular thickness, size, wall motion, and systolic function (EF 65-70%). 2) Normal right ventricular size and function. 3) Diastolic parameters suggest a pseudonormalization pattern, consistent with probable elevated filling pressures. 4) No significant valvular abnormalities. 5) Hypertension present during the study (BP 158/79mmHg). 6) No prior Echo available for comparison. Procedure: A two-dimensional transthoracic echocardiogram with color flow and Doppler was performed. The study quality was technically adequate. Comparison is made with the echocardiogram of 03/14/2018. Left Ventricle: The left ventricle is normal in size. There is mild-moderate concentric left ventricular hypertrophy. The ejection fraction is estimated to be 65-70%. Left ventricular systolic function is normal without focal wall motion abnormalities. Diastolic parameters suggest a pseudonormalization pattern, consistent with probable elevated filling pressures. Right Ventricle: The right ventricle is normal in size and function. Atria: The left atrium is moderately dilated. The right atrium is borderline dilated. The interatrial septum is intact with no evidence for an atrial septal defect. Mitral Valve: The mitral valve leaflets appear normal. There is no evidence of stenosis, fluttering, or prolapse. There is mild mitral regurgitation. Aortic Valve: There is mild aortic valve sclerosis. The aortic valve is mildly calcified. The aortic valve is trileaflet. There is no aortic valve stenosis. No aortic regurgitation is present. Tricuspid Valve: The tricuspid valve is normal in structure and function. There is mild tricuspid regurgitation. Right ventricular systolic pressure is estimated to be 31 mmHg plus the clinically estimated CVP which cannot be estimated on this exam. Pulmonic Valve: The pulmonic valve is not well seen, but is grossly normal. There is trace pulmonic regurgitation. Great Vessels: The aortic root is normal size. The ascending aorta is normal in size. The inferior vena cava was not visualized. Pericardium/ Pleura There is no pericardial effusion. There is no pleural effusion. MMode/2D Measurements & Calculations LVIDd: 4.4 cm LVOT diam: 2.0 cm LVIDs: 2.8 cm Ao root diam: 3.3 cm FS: 35.6 % asc Aorta Diam: 3.2 cm EPSS: 0.71 cm IVSd: 1.6 cm LVPWd: 1.3 cm LV moreira. diameter/BSA (cm/m^2): 2.4 LV sys. diameter/BSA (cm/m^2): 1.5 LA A2 area: 21.9 cm2 RA long axis: 5.5 cm LA A4 area: 21.8 cm2 RA area: 19.5 cm2 LA length (vol): 6.2 cm RA vol: 58.8 ml LA vol: 65.3 ml RA : 32.0 ml/m2 LA vol index: 35.5 ml/m2 RVD1 (basal): 3.6 cm TAPSE: 2.9 cm Doppler Measurements & Calculations Ao V2 max: 190.1 cm/sec LVOT Max Maged: 106.7 cm/sec Ao V2 mean: 134.5 cm/sec LV V1 max P.6 mmHg Ao max P.5 mmHg LV V1 VTI: 28.2 cm Ao mean P.1 mmHg KRAIG(I,D): 1.9 cm2 Ao V2 VTI: 49.2 cm KRAIG(V,D): 1.8 cm2 sev ratio: 0.57 KRAIG indexed to BSA (cm^2/m^2): 1.0 MV E max maged: 96.0 cm/sec TR max maged: 279.6 cm/sec MV A max maged: 76.7 cm/sec TR max P.3 mmHg MV E/A: 1.3 PA V2 max: 92.2 cm/sec Med Peak E' Maged: 3.7 cm/sec PA V2 mean: 64.7 cm/sec E/E' med: 25.9 PA mean P.9 mmHg Lat Peak E' Maged: 4.9 cm/sec PA pr(Accel): 46.5 mmHg E/E' lat: 19.5 E/e' average: 22.7 MV dec time: 0.25 sec SV(LVOT): 91.3 ml Reading Physician:02:25 PM
== END ==
PROVIDERS: PCP Family Medicine; Referring Provider Specialist; Visit Provider Specialist
DX: I08.3 Combined rheumatic disorders of mitral, aortic and tricuspid valves (principal); R06.02 Shortness of breath; R06.81 Apnea, not elsewhere classified; R06.01 Orthopnea; J44.9 Chronic obstructive pulmonary disease, unspecified
CPT/HCPCS: 93306

== ENCOUNTER → 2020-03-04 10:30 | Outpatient (CLI) | payer MEDICARE, SELFPAY ==
--- NOTE | 2020-03-04 10:56 | DI.CT.S_ITS ---
PROCEDURE: CT ABDOMEN PELVIS WO CON INDICATIONS: huge Left Ing Hernia. Define anatomy and contents TECHNIQUE: Noncontrast 5 mm thick sections acquired from the diaphragms to the symphysis. 5 mm coronal and sagittal reformats were then performed. For radiation dose reduction, the following was used: automated exposure control, adjustment of mA and/or kV according to patient size. COMPARISON: [facility], CT, CT KUB, 03/13/2018, 19:07. FINDINGS: Image quality: Excellent. ABDOMEN: Lung bases: Lung bases are clear. Heart size is normal. Coronary artery calcifications. Solid organs: Liver is normal in size. Gallbladder contains a large gallstone. There is focal thickening of the wall of the fundus of the gallbladder. Pancreas is normal in contours. Spleen is normal in size. No adrenal nodules. Kidneys are normal in size. No right renal stone suspected. No right hydronephrosis. Multiple presumed vascular calcifications on the right. There is interval increase in left hydronephrosis, severe. Multiple left-sided vascular calcifications. Interval increase in dilatation of the left ureter, now marked, down to the level of the very large left inguinal hernia. It appears to enter the hernia sac. Peritoneum and bowel: Unenhanced bowel loops demonstrate normal wall thickness and caliber. No free fluid or air. Nodes and vessels: No retroperitoneal or mesenteric adenopathy by size criteria. Aorta and inferior vena cava are normal in caliber. Miscellaneous: No ventral hernias. PELVIS: Genitourinary: Prostate is enlarged. There is a Flynn catheter decompressing the bladder. The bladder wall is diffusely thickened. Miscellaneous: Remarkably large left inguinal hernia containing a large amount of colonic loops. The distal sigmoid is thickened as it enters the hernia. There is a large amount of ascites present in the left hemiscrotum. There is a moderately large right inguinal hernia. The fundus of the bladder minimally extends into that hernia sac. Bones: No suspicious bony lesions. No vertebral body compression fractures. IMPRESSION: 1. Very large left inguinal hernia containing a large amount of colon and large ascites. The distal sigmoid colon demonstrates wall thickening as it extends into the hernia sac. 2. Interval increase in left hydroureter and hydronephrosis, with severe hydronephrosis and marked hydroureter present. The left ureter appears to enter the hernia sac. 3. Moderately large right inguinal hernia. The fundus of the bladder minimally extends into the right inguinal hernia sac. 4. Prostate enlargement, chronic indwelling Flynn, significant thickening of the bladder. 5. Gallstone. 6. Focal fundal wall thickening of the gallbladder. 7. Coronary artery disease. Dictated by: Charli Newman M.D. on 03/04/2020 at 12:01 Approved by: Charli Newman M.D. on 03/04/2020 at 12:11
== END ==
PROVIDERS: PCP Family Medicine; Referring Provider Family Medicine; Visit Provider Specialist
DX: K40.20 Bilateral inguinal hernia, without obstruction or gangrene, not specified as recurrent (principal); R18.8 Other ascites; N13.30 Unspecified hydronephrosis; N40.0 Benign prostatic hyperplasia without lower urinary tract symptoms; K80.20 Calculus of gallbladder without cholecystitis without obstruction; I25.10 Atherosclerotic heart disease of native coronary artery without angina pectoris
CPT/HCPCS: 74176

== ENCOUNTER → 2020-04-03 11:20 | Outpatient (CLI) | payer MEDICARE, SELFPAY ==
[2020-04-03 12:09] LABS: COVID19 -Nasal RAPID Negative (Negative)
== END ==
PROVIDERS: PCP Family Medicine; Visit Provider Physician Assistant
DX: Z11.59 Encounter for screening for other viral diseases (principal)
CPT/HCPCS: 87635

== ENCOUNTER → 2020-04-03 12:55 | Outpatient (CLI) | payer MEDICARE, SELFPAY ==
--- NOTE | 2020-04-09 10:22 | PM.PFT.1 ---
Pulmonary Function Test Referral & Results Date Patient Seen: 04/03/20 Requesting provider: Trent Solitario Results: The spirometry demonstrates an FVC of 1.92 L which is 71% of predicted. The FEV1 was measured at 1.25 L which is 60% of predicted. The FEV1/FVC ratio was 65 which is 91% of predicted. Following the administration of bronchodilator there was a 12% improvement in FEV1 and a 63% improvement in FEF 25-75%. Lung volumes show an SVC of 2.23 L which is 69% of predicted. The diffusing capacity was measured at 10.3 which is 47% of predicted. No hemoglobin value was provided, so no correction for potential anemia could be made, if appropriate. The maximum voluntary ventilation was reduced Interpretation: This study demonstrates mild obstructive lung disease based on slight reduction FEV1. There is some limited evidence of benefit following bronchodilator based on some improvement in FEV1 and more significant improvement in FEF 25-75% suggesting more small airway flow improvement There is minimal reduction SVC suggesting mild restrictive lung disease There is more significant reduction diffusing capacity suggesting more significant disease at the capillary alveolar level Clinical correlation suggested
== END ==
PROVIDERS: PCP Family Medicine; Referring Provider Specialist; Visit Provider Specialist
DX: R06.81 Apnea, not elsewhere classified (principal); J44.9 Chronic obstructive pulmonary disease, unspecified; R06.1 Stridor; Z87.891 Personal history of nicotine dependence; Z11.59 Encounter for screening for other viral diseases
CPT/HCPCS: 87635; 94060; 94726; 94729

== ENCOUNTER → 2020-04-15 14:30 | Outpatient (CLI) | payer MEDICARE, SELFPAY ==
[2020-04-17 08:41] LABS: COVID19 Sendout Not Detected (Not Detect)
== END ==
PROVIDERS: PCP Family Medicine; Visit Provider Physician Assistant
DX: Z11.59 Encounter for screening for other viral diseases (principal)
CPT/HCPCS: 87635

== ENCOUNTER → 2020-04-17 13:08 | Outpatient (CLI) | payer MEDICARE, SELFPAY ==
[2020-04-17 13:28] LABS: Add Manual Diff / Slide Review NO; Basophils Absolute Auto 100 /uL (0-100); Basophils Percent Auto 1.2 % (0-2); Eosinophils Absolute Auto 500 /uL (0-450); Hematocrit 34.6 % (41-53); Hemoglobin 11.5 g/dL (13.5-17.5); Lymphocytes Absolute Auto 700 /uL (1100-4500); Lymphocytes Percent Auto 10.5 % (25-40); Mean Corpuscular HGB Conc 33.3 % (30-36); Mean Corpuscular Hemoglobin 29.3 PG (26-34); Mean Corpuscular Volume 87.8 fL (80-100); Monocytes Absolute Auto 400 /uL (0-900); Monocytes Percent Auto 5.8 % (3-14); Neutrophils Absolute Auto 5100 /uL (1500-7000); Neutrophils Percent Auto 75.5 % (50-75); Platelet Count 166 X10^3/uL (150-400); Red Blood Cell Count 3.94 X10^6/uL (4.5-5.9); Red Cell Distribution Width 14.5 % (11.6-14.8); White Blood Cell Count 6.8 X10^3/uL (4.5-11.0)
[2020-04-17 13:40] LABS: Alanine Aminotransferase 19 IU/L (<50); Albumin 3.8 g/dL (3.5-5.0); Albumin Globulin Ratio 1.1 (1.0-2.8); Alkaline Phosphatase 124 U/L (38-126); Aspartate Aminotransferase 20 IU/L (17-59); BUN Creatinine Ratio 26.3 (6-22); Bilirubin Total 0.6 mg/dL (0.2-1.3); Blood Urea Nitrogen 71 mg/dL (9-20); Calcium 8.4 mg/dL (8.4-10.2); Carbon Dioxide 23 mmol/L (22-32); Chloride 109 mmol/L (98-107); Estimated Glomerular Filt Rate 22.7 mL/min (>60); Globulin 3.4 g/dL (1.7-4.1); Glucose 108 mg/dL (80-110); HEMOLYSIS < 15 (0-50); Potassium 4.5 mmol/L (3.4-5.1); Sodium 140 mmol/L (137-145); Total Protein 7.2 g/dL (6.3-8.2)
== END ==
PROVIDERS: PCP Family Medicine; Referring Provider Family Medicine; Visit Provider Specialist
DX: I50.9 Heart failure, unspecified (principal); K40.30 Unilateral inguinal hernia, with obstruction, without gangrene, not specified as recurrent; N17.9 Acute kidney failure, unspecified; R06.81 Apnea, not elsewhere classified; Z01.818 Encounter for other preprocedural examination
CPT/HCPCS: 36415; 80053; 85025; 93005

== ENCOUNTER 2020-04-18 07:54 | Inpatient (IN) | payer MEDICARE, SELFPAY ==
[2020-04-18] VITALS (23 sets, daily range): BP systolic 126–162; BP diastolic 53–74; PULSE 56–74; RESP 11–19; TEMP 35.8–36.9; O2SAT 93–100; BMI 31.8
--- NOTE | 2020-04-18 | PATH_ITS ---
[facility] Accession Number: [id number] . 01 Material submitted: . testis - LEFT TESTICLE AND SAC . 02 Diagnosis: Left Testicle and Sac, Orchiectomy and Inguinal Hernia Repair: 1. Hernia sac wall with chronic inflammation. 2. Testicle, epididymis and spermatic cord with no evidence of neoplasia. MRV 04/22/2020 1553 Local . 02 Electronically signed: . Jane Morales MD, Pathologist NPI- [id number] . 01 Gross description: . The specimen is received in formalin, labeled left testicle and sac, and consists of a 62 g testicle with attached spermatic cord. The testicle measures 3.8 x 3.0 x 2.0 cm, and the epididymis measures 5.2 x 0.7 x 0.5 cm. The tunica vaginalis is not intact. The tunica albuginea is gallegos-white and smooth. The specimen is sectioned to reveal a gallegos-pink testicular parenchyma. There is a 0.4 x 0.3 x 0.2 cm, bi-loculated cyst within the epididymis. The spermatic cord measures 17.5 x 3.5 x 2.0 cm. Also received is a 15.0 x 12.0 x 2.0 cm, gallegos-pink to purple, fibromembranous fragment of tissue with focal areas of thickening. The thickness ranges from 0.1 to 0.3 cm. Bar Back sections are submitted. . A1: Spermatic cord margin (blue), en face. A2: Spermatic cord, mid cross-section. A3: Rete testis, epididymis, and testicle. A4: Epididymis and testicle. A5-A6: Bar Back fibromembranous segment of soft tissue. ([id number]) /FRR 04/19/2020 1742 Local . 02 Pathologist provided ICD-10: K40.90 . 02 CPT . 415944 Performed at: 01 [facility] [address] [place] [address], [place], [place] [id number] MD Kulwant Adams MD Phone: [phone] Performed at: 02 [facility] [address] [place], [place] [id number] MD Jane Morales MD Phone: [phone]
[2020-04-18] MEDS: LACTATED RINGERS 1,000 ML 42 ML IV ×2 (08:54→12:15)
--- NOTE | 2020-04-18 09:03 | SUR.PREOP ---
Pt poor historian in regards to medications, although he is compliant with his medications. He doesn't know what he takes or when he takes it - he uses pill boxes to organize meds an timing.
--- NOTE | 2020-04-18 09:04 | PM.PREOP ---
Pre-operative Note COVID-19 COVID-19 status: Negative Result date/Date tested (Pos, Neg/Pending): 04/15/20 Interval Note History & Physical reviewed/Exam performed by Physician: Yes Changes to H&P: No
--- NOTE | 2020-04-18 09:19 | SUR.OPER ---
Supine on padded OR bed, head on pillow, arms secured on padded arm boards at <90 degrees abduction, legs uncrossed, safety belt at thigh, tape over blanket over lower legs.
[2020-04-18] MEDS: CEFAZOLIN 2 GM/100 ML FROZ.PIGGY IV ×2 (09:37→13:10)
[2020-04-18] MEDS: BUPIVACAINE 0.5% W/ EPI (PF) 30 ML VIAL INJ (10:34)
[2020-04-18] MEDS: ACETAMINOPHEN IV 1,000 MG/100 ML VIAL 400 MG IV (11:50)
--- NOTE | 2020-04-18 13:57 | SUR.PHASEI ---
After admission to PACU, changed existing leg bag to full womack bag for inpatient status. Clean, dry stat lock applied, as patient's existing leg strap is dirty and smells strongly of urine. Clean socks placed to feet, repositioned patient in bed, and placed pillow under left arm for comfort. Patient appears to be in no distress. VSS. Oxygen saturation 99% with 2 liters nasal cannula. Lungs coarse to auscultation.
[2020-04-18] MEDS: ONDANSETRON 4 MG/2 ML INJ IV ×2 (14:08→19:43)
[2020-04-18] MEDS: HYDROMORPHONE 2 MG INJ IV (14:09)
--- NOTE | 2020-04-18 14:18 | PM.OP.1 ---
Operative Date/Time/Diagnoses Date of procedure: 04/18/20 Time of procedure: 13:30 Pre-op diagnosis: Left inguinal hernia incarcerated huge in size with colon, ureter, bladder and and fluid within the sac. Post-op diagnosis: same (Sliding hernia with sigmoid colon wall forming the entire lower part of the wall of the sac.) Procedure & Clinicians Procedure: Repair modified Delfina repair with onlay of mesh. Left orchiectomy. Please see details below. Same procedure as scheduled: Yes Indications: Symptomatic left inguinal hernia make it impossible to find his penile meatus and change it an indwelling Flynn catheter. Surgeon: Trent Solitario Swinging Cut Off Saw Operator: Khanh Bates Anesthesia Type: General Operative Notes Findings: Huge complex hernia sliding type Closure Type: primary Specimen(s): other (Testicle in portion of sac) Prosthetic devices, grafts, tissues, transplants, or devices: Three 2 x 6 in piece of mesh. Applied: catheter (Patient has an indwelling Flynn catheter and this was left alone.) Estimated Blood Loss (mL): 100 Blood products transfused: none Procedure in detail: The patient is placed supine on the operating table after undergoing general LMA anesthesia. His entire abdominal wall and scrotum were scrubbed with Betadine soap and then prepped with chlorhexidine alcohol and draped in the usual fashion. The penis and Flynn were excluded from the operative field as best possible. A long transverse incision was made from near midline to nearly the anterior spit superior iliac spine and carried down to the level of the external oblique. The external oblique was opened parallel with its fibers through the external ring exposing the you had hernia sac proximally. The external oblique was lifted off the underlying layer of rectus fascia exposing the posterior lamella the anterior rectus sheath. The ileal inguinal ligament was exposed from the area of the anterior superior iliac spine down to nearly the pubic tubercle. The cremaster was opened anteriorly and the hernia sac entered. We then suctioned a huge amount of fluid from the scrotum reducing the pressure in that area. We then eviscerated the hernia sac which was found to contain omentum and what appeared to be sigmoid colon. Adhesions to the sac of the omentum were taken down with cautery and vessels tied and we are able to reduce the omentum. We identified the sac and began dissecting it off the colon but found that we reached a point where the colon itself was the wall of the sac thus we had a sliding hernia. We divided the sac and then carefully resected sac circumferentially to remove this excess tissue from our field. We reduced the colon and the retroperitoneal structures that came with it back up above the pelvis and identified Levon's ligament. Tissues were cleared off of the inguinal ligament to the pubic tubercle and we could identify Levon's ligament as well to the level the femoral vessels. We then brought the colon back into the wound and closed the peritoneum as best possible with running 2 0 Vicryl actually having to invert the colon and so the fat attached to it to close off this very large hernia defect and prevent intestine from sliding back down into the region. . I decided that leaving the testicular vessels would be problematic for 2 reasons. First of all it would create a defect in my repair that would be a weakened area that would potentially precipitate a recurrence of this very complex hernia. Second of all, we had done a great deal of dissection around the blood supply to the testicle and was possible with partially disrupted it. It did not make sense for this reason to keep the testicle since he had a normal scrotum on the opposite side. The patient had been made aware of this possibility and the likelihood that I would do an orchidectomy preoperatively. Therefore we divided the vessels proximally along with the vas deferens. We dissected the testicle up from the scrotum, detached it from its attachments to the skin and removed the testicle. Sutures were then placed from what turned out to be the cut edge of the transversus and internal oblique to Levon's ligament to the level the femoral vessels where we transition to the inguinal ligament because I divided the testicular vessels and vas deferens I was able to close this entire area rather than leaving a defect for them to come through. The sutures were then tied any muscle relaxing incision made in the posterior lamella the anterior rectus sheath. I then placed a 2 x 6 piece of mesh tacking it to the medial pubic tubercle, the posterior lamella the anterior rectus sheath(medial to the relaxing incision) transitioning onto the internal oblique laterally. Laterally, the ileal inguinal ligament was used to anchor the mesh. The mesh ended up being secured out to nearly the level of the anterior superior iliac spine essentially. With this accomplished I then closed the external oblique(which was quite stretched due to the size of the hernia) from the pubic tubercle lateral. With this layer completely closed I then closed the subcu with interrupted 3 0 Vicryl with interrupted [id number] sutures and closed the subcu with 4 0 Vicryl interrupted sutures. Luiz were used to close the skin. A dressing was applied and the patient was awakened, extubated and taken recovery room good condition. Complications: none Post-operative Condition: stable Disposition: PACU Plan for aftercare: Observation possible admission due to overall disability age and breathing issues.
[2020-04-18] MEDS: HYDRALAZINE 25 MG TABLET 50 MG PO ×2 (16:00→21:15)
[2020-04-18] MEDS: LACTATED RINGERS 1,000 ML 100 ML IV (16:01)
[2020-04-18] MEDS: prednisoLONE OPHTH SUSP 1 DROPS EYE-BOTH ×2 (16:01→21:15)
[2020-04-18] MEDS: OXYCODONE IR 5 MG TABLET 10 MG PO (16:11)
--- NOTE | 2020-04-18 19:34 | PC.ADMIT ---
Admission Note: The patient,Hernan Celeste,84 y/o, was given written information regarding hospital policies, unit procedures and contact persons. Patient's smoking status: Former smoker. Assumed care of pt at 1500. Admit completed. 2L NC sats 95-100% while awake. Aide c/d/i. Medicated per sep. Oriented to room and call system. Called Dr. Hernández to clarify orders. Per D/C IVF, okay to change oxycodone to q 4 hr prn from 6 hrs prn. Keep calf scd's, exclusion criteria is for chemical dvt prophylaxis. Hand-off report given to Amanda RN @ [phone]. Vital Signs - 8 hr 04/18/20 13:22 04/18/20 13:27 04/18/20 13:32 Temperature 98.5 F Pulse Rate 67 67 66 Respiratory Rate 11 L 15 19 Blood Pressure 146/62 H 147/61 H 157/64 H Pulse Oximetry 94 99 99 04/18/20 13:37 04/18/20 13:43 04/18/20 13:47 Temperature Pulse Rate 65 66 66 Respiratory Rate 14 16 15 Blood Pressure 159/69 H 160/64 H 161/74 H Pulse Oximetry 98 99 98 04/18/20 13:52 04/18/20 14:02 04/18/20 14:07 Temperature Pulse Rate 64 66 66 Respiratory Rate 14 14 14 Blood Pressure 162/74 H 154/73 H 159/72 H Pulse Oximetry 99 99 99 04/18/20 14:12 04/18/20 14:27 04/18/20 14:38 Temperature Pulse Rate 63 63 63 Respiratory Rate 13 15 14 Blood Pressure 157/66 H 137/53 L 135/57 L Pulse Oximetry 99 99 99 04/18/20 14:46 04/18/20 15:16 04/18/20 15:46 Temperature 96.5 F L 97.0 F L 97.0 F L Pulse Rate 64 61 59 L Respiratory Rate 16 16 16 Blood Pressure 145/70 H 126/60 152/62 H Pulse Oximetry 98 97 98 04/18/20 16:00 04/18/20 16:46 04/18/20 17:46 Temperature 97.3 F L 97.0 F L Pulse Rate 60 56 L 63 Respiratory Rate 16 16 Blood Pressure 147/59 H 144/63 H 132/64 Pulse Oximetry 95 97 99
[2020-04-18] MEDS: DOXAZOSIN 2 MG TABLET PO (21:13)
[2020-04-18] MEDS: DOCUSATE 100 MG CAPSULE PO (21:14)
[2020-04-18] MEDS: carvediloL 12.5 MG TABLET PO (21:14)
[2020-04-18] MEDS: GABAPENTIN 300 MG CAPSULE PO (21:14)
[2020-04-18] MEDS: TAMSULOSIN 0.4 MG CAPSULE PO (21:15)
[2020-04-18] MEDS: SODIUM CHLORIDE 0.9% FLUSH 10 ML IV (21:16)
[2020-04-19] VITALS (14 sets, daily range): BP systolic 103–145; BP diastolic 50–63; PULSE 61–70; RESP 16–20; TEMP 36.2–37.9; O2SAT 92–98
--- NOTE | 2020-04-19 02:55 | PC.NURSE ---
Pt's abdominal dressing C/D/I. No c/o of pain at this time.
[2020-04-19 05:33] LABS: Add Manual Diff / Slide Review NO; Basophils Absolute Auto 0 /uL (0-100); Basophils Percent Auto 0.2 % (0-2); Eosinophils Absolute Auto 0 /uL (0-450); Eosinophils Percent Auto 0.1 % (2-4); Hematocrit 29.5 % (41-53); Lymphocytes Absolute Auto 400 /uL (1100-4500); Lymphocytes Percent Auto 4.4 % (25-40); Mean Corpuscular HGB Conc 33.7 % (30-36); Mean Corpuscular Hemoglobin 29.7 PG (26-34); Mean Corpuscular Volume 88.1 fL (80-100); Monocytes Absolute Auto 500 /uL (0-900); Monocytes Percent Auto 5.4 % (3-14); Neutrophils Absolute Auto 8600 /uL (1500-7000); Neutrophils Percent Auto 89.9 % (50-75); Platelet Count 158 X10^3/uL (150-400); Red Blood Cell Count 3.35 X10^6/uL (4.5-5.9); Red Cell Distribution Width 14.2 % (11.6-14.8); White Blood Cell Count 9.6 X10^3/uL (4.5-11.0)
[2020-04-19 05:40] LABS: Alanine Aminotransferase 9 IU/L (<50); Albumin 2.9 g/dL (3.5-5.0); Alkaline Phosphatase 87 U/L (38-126); Aspartate Aminotransferase 16 IU/L (17-59); BUN Creatinine Ratio 22.4 (6-22); Bilirubin Total 0.3 mg/dL (0.2-1.3); Blood Urea Nitrogen 55 mg/dL (9-20); Calcium 7.7 mg/dL (8.4-10.2); Carbon Dioxide 25 mmol/L (22-32); Chloride 109 mmol/L (98-107); Estimated Glomerular Filt Rate 25.4 mL/min (>60); Globulin 2.9 g/dL (1.7-4.1); Glucose 176 mg/dL (80-110); HEMOLYSIS < 15 (0-50); Potassium 4.1 mmol/L (3.4-5.1); Sodium 138 mmol/L (137-145); Total Protein 5.8 g/dL (6.3-8.2)
[2020-04-19] MEDS: prednisoLONE OPHTH SUSP 1 DROPS EYE-BOTH ×3 (09:20→20:59)
[2020-04-19] MEDS: SODIUM CHLORIDE 0.9% FLUSH 10 ML IV ×2 (09:21→20:59)
[2020-04-19] MEDS: GABAPENTIN 300 MG CAPSULE PO ×2 (09:23→20:58)
[2020-04-19] MEDS: SENNOSIDES 8.6 MG TABLET 17.2 MG PO (09:23)
[2020-04-19] MEDS: carvediloL 12.5 MG TABLET PO ×2 (09:24→20:58)
[2020-04-19] MEDS: TAMSULOSIN 0.4 MG CAPSULE PO (09:24)
[2020-04-19] MEDS: DOCUSATE 100 MG CAPSULE PO ×2 (09:24→20:58)
[2020-04-19] MEDS: FUROSEMIDE 40 MG TABLET PO (09:24)
[2020-04-19] MEDS: ACETAMINOPHEN 325 MG TABLET 650 MG PO ×2 (09:27→20:57)
--- NOTE | 2020-04-19 10:05 | PT.IIE ---
Surgery Performed Operation Date: 04/18/20 09:15 Actual Procedures p Hernia Repair - Inguinal (Left) and Poss. Right W/ Mesh - Trent Solitario MD Medical History (Last Reviewed 04/16/20 @ 11:21 by Trent Solitario MD) CKD (chronic kidney disease) (Acute) Congestive heart failure (Acute) Diabetes mellitus (Acute) Heart failure (Acute) Hernia of scrotum (Acute) Hypertension (Acute) Lower extremity weakness (Acute) Physical Therapy Inpatient Evaluation/Re-Eval M1 PT/OT-IP Prior Functional Status Start: 04/19/20 12:09 Freq: NEEDED Status: Active Protocol: Document 04/19/20 10:05 AB (Rec: 04/19/20 12:25 AB [email or web address]) Medical Review Prior Functional Status Medical History Reviewed Yes Communication able to make needs known Mobility and Gait pt stated that he is modified independent with all mobilities and ambulation wtihout AD indoors, uses 4WW for outdoor long distance ambulation(getting his mail) but also uses a SPC outdoor short distances stated that his grand daughter helps him with his groceries Social History Household Members none Living Arrangements Mobile home Number of Floors (Floors) One Floor Number of Stairs To Enter/Railing? 4 steps to enter with B rail Home Environment High Toilet,Walk in Shower Home Equipment Four Wheel Walker,Straight Cane,Shower Seat with Backrest ,Hand Held Shower Additional Social History Comment pt stated that he sleeps on a recliner M2 PT-IP Current Condition Start: 04/19/20 12:09 Freq: NEEDED Status: Active Protocol: Document 04/19/20 10:05 AB (Rec: 04/19/20 12:25 AB [email or web address]) Physical Therapy Current Condition Current Condition Evaluation Date 04/19/20 Treatment Diagnosis s/p L inguinal hernia repair; difficulty in walking Onset Date 04/18/20 Precautions Abdominal Surgery Precautions Log Roll,Lifting Restrictions, Gait Belt above Incisional Area M3 PT-IP Subjective Start: 04/19/20 12:09 Freq: NEEDED Status: Active Protocol: Document 04/19/20 10:05 AB (Rec: 04/19/20 12:25 AB [email or web address]) Subjective Physical Therapy Visit Type Type Initial Evaluation Visit Start Time 10:05 Visit Stop Time 10:44 Total Visit Minutes 39 Number of CORPORATE AIRCRAFT MECHANIC Visits 0 Physical Therapy Visit Comments Patient Comments pt is agreeable to do PT Therapy Pain Assessment Pain When Pain Assessed At Rest Pain Present Pain Present Pain Reported Location Left Inguinal area Intensity 2 Scale Used increases to 8 with mobility Pain Management Techniques Modification of Treatment,Re- positioning,Timing of Activity with Medications M4 PT-IP Mobility and Gait Start: 04/19/20 12:09 Freq: NEEDED Status: Active Protocol: Document 04/19/20 10:05 AB (Rec: 04/19/20 12:25 AB [id number]) PT-Bed Mobility Assessment Supine to Sit Supine to Sit Maximum Assistance,Head of Bed Elevated,Bedrails Scooting Scooting to Edge of Bed Maximum Assistance PT-Transfer Assessment Sit to and From Stand Sit to and from Stand Moderate Assistance,2 Person Assistance,Use of Upper Extremities Equipment Transfer Assistive Device Gait Belt,Front Wheeled Walker Orthotic/Prosthetic Devices or Brace: No Transfers Transfer Destination Chair Transfer Technique ambulated using FWW Transfer Ability Level of Assist Moderate Assistance,2 Person Assistance,Use of Upper Extremities Comments Mobility Comments pt sleeps on a recliner at home. completed bed mobility with HOB elevated required max A to sit on EOB. c/o increase pain with mobility. pt required max A to scoot to EOB. pt was able to sit on EOB CGA. Nurse in room to assist. completed sit to stand mod A x 2 and max cues. ambulated towards the chair using FWW mod A x 2 and max cues. positioned pt on chair. call light and table placed within reach. Gait Assessment Gait Gait Assistance Required: Moderate Assistance,2 Person Assist Distance (Feet) 12 Able to Maintain Weight Bearing Status Yes During Gait Assistive Devices Assistive Device Gait Belt,Front Wheeled Walker Orthotic/Prosthetic Devices or Brace: No Gait Deviations General Gait Pattern Antalgic,Decreased Stride Length,Decreased Feet Clearance,Step-to Gait Factors Limiting Gait Function Factors Limiting Gait Function Decreased Activity Tolerance, Decreased Strength,Difficulty Following Directions,Limited Range of Motion,Pain,Poor Balance,Poor Safety Awareness Comments Gait Comments pls refer to mobility section for details; the with increase R knee flexion during ambulation; pt with decrease vision and tends to be too close to edge of surface and required assist with FWW maneuvering PT-Balance Assessment Sitting Balance and Reactions Static Sitting Balance Ability Fair Dynamic Sitting Balance Ability Fair Standing Balance and Reactions Static Standing Balance Ability Fair Dynamic Standing Balance Ability Poor Device Used FWW M5 PT-IP Objective Assessments Start: 04/19/20 12:09 Freq: NEEDED Status: Active Protocol: Document 04/19/20 10:05 AB (Rec: 04/19/20 12:25 AB [id number]) Orientation Orientation/Cognition Level of Alertness Alert Orientation Name,Place,Situation Language Function Ability Hard of Hearing Safety Awareness Decreased Safety Awareness Comments pt with decrease vision Gross Range of Motion Lower Extremity ROM Assessment Within Functional Limits Strength Lower Extremity Strength Assessment Bilaterally Impaired Comments Strength Comments RLE 3+/5 LLE 4-/5 Coordination Assessment Gross Coordination Gross Coordination WNL Sensation Assessment Sensation Gross Sensation WNL Muscle Tone Muscle Tone WNL Yes M6 PT-IP Treatment Start: 04/19/20 12:09 Freq: NEEDED Status: Active Protocol: Document 04/19/20 10:05 AB (Rec: 04/19/20 12:25 AB [email or web address]) Physical Therapy Treatment Education Education Provided Precautions,Safety M7 PT-IP Assessment and Plan Start: 04/19/20 12:09 Freq: NEEDED Status: Active Protocol: Document 04/19/20 10:05 AB (Rec: 04/19/20 12:25 AB [email or web address]) PT Summary Assessment and Plan Potential Rehabilitation Potential Fair Status of Condition at Evaluation Stable Summary Impairments Pain,ROM,Strength,Balance, Coordination,Sensation,Tone, Cognition,Bed Mobility, Transfers,Gait,Activity Tolerance Assessment Summary pt requiring 2 person assist for mobility at this time and will require SNF rehab. pt lives alone and will not have any assistance at home. will continue to assess progress. Goals Bed Mobility Goal Standby Assistance Transfer Goal Standby Assistance,Front Wheeled Walker Gait Goal Standby Assistance,Front Wheel Walker Gait Distance 100 Other Goals up/down 4 steps withour rails SBA ambulation using 4WW 150 ft SBA Days to Meet Goals 10 Frequency of Treatment Frequency Of Treatment Once a Day Treatment Plan Physical Therapy Treatment Plan Bed Mobility Training,Transfer Training,Gait Training, Therapeutic Exercise,Balance Retraining,Post Op Education, Discharge Planning,Hot or Cold Pack,Neuromuscular Re-ed, Coordination Retraining,Manual Therapy Other Recommendations and Next Treatment ambulation Focus Recommendations To Nursing Amount of Assist Needed 2 Person Assist Discharge Recommendations PT Discharge Recommendations SNF Rehab Equipment Needed for Home Before FWW if pt goes home and not Discharge safe with 4WW Transportation Needs at Discharge Wheelchair/Cabulance
[2020-04-19] MEDS: OXYCODONE IR 10 MG TABLET PO ×2 (10:32→20:57)
--- NOTE | 2020-04-19 10:52 | PC.NURSE ---
Day shift: Pt OOB w/ PT this AM. Pt c/o ABD pain when moving in bed and preparing to stand. Medicated w/ 10mg oxycodone per SEP for pain 12/25. Pt slow when ambulating w/ FWW but steady. Sitting in chair now. Call light in reach and chair alarm is on. Pt has not been impulsive. Pt has been appreciative of care.
--- NOTE | 2020-04-19 12:16 | PM.PNPO.1 ---
Subjective Subjective Date Patient Seen: 04/19/20 Time Patient Seen: 12:16 Interval history: No acute overnight events. Pain is controlled no nausea vomiting or fever. Has ambulated with physical therapy. Exam Vital Signs (past 8 hours): - 04/19/20 05:04 04/19/20 07:43 04/19/20 08:01 Temperature 97.5 F L 98.2 F Pulse Rate 67 62 Respiratory Rate 18 16 Blood Pressure 103/59 L 116/63 Pulse Oximetry 98 96 96 04/19/20 09:20 04/19/20 09:24 04/19/20 11:41 Temperature 98.2 F Pulse Rate 68 65 Respiratory Rate 16 Blood Pressure 106/51 L 106/51 L 103/50 L Pulse Oximetry 92 04/19/20 11:56 Temperature Pulse Rate Respiratory Rate Blood Pressure Pulse Oximetry 95 Oxygen Delivery Method Room Air Oxygen Flow Rate 0 Narrative Exam Narrative: General adult male alert oriented hard of hearing Abdomen of left groin incision clean dry intact no hernia appropriately tender to palpation Objective Labs Result Diagrams: 04/19/20 05:04 04/19/20 05:04 Labs: Laboratory Results - last 24 hr 04/19/20 04/19/20 05:04 05:04 WBC 9.6 RBC 3.35 L Hgb 10.0 L Hct 29.5 L MCV 88.1 MCH 29.7 MCHC 33.7 RDW 14.2 Plt Count 158 Neut % (Auto) 89.9 H Lymph % (Auto) 4.4 L Mclennan % (Auto) 5.4 Eos % (Auto) 0.1 L Baso % (Auto) 0.2 Neut # (Auto) 8600 H Lymph # (Auto) 400 L Mclennan # (Auto) 500 Eos # (Auto) 0 Baso # (Auto) 0 Sodium 138 Potassium 4.1 Chloride 109 H Carbon Dioxide 25 BUN 55 H Creatinine 2.45 H Estimated GFR 25.4 L BUN/Creatinine Ratio 22.4 H Glucose 176 H Calcium 7.7 L Total Bilirubin 0.3 AST 16 L ALT 9 Alkaline Phosphatase 87 Total Protein 5.8 L Albumin 2.9 L Globulin 2.9 Albumin/Globulin Ratio 1.0 Assessment & Plan Post-op Postoperative Procedures: Procedures Operation Date: 04/18/20 09:15 Actual Procedures Side Surgeon p Hernia Repair - Inguinal (Left) and Poss. Right W/ Mesh Trent Solitario MD Postoperative plan narrative: 84-year-old male postoperative day 1 after a left inguinal hernia repair for a large hernia. He has doing well however states position rib remains to be determined. He has significant comorbidities including respiratory dysfunction, chronic kidney disease, diabetes and congestive heart failure. He tolerated the operation well well however he lives alone and is needs will be adequately assessed prior to discharge. -regular diet -PT OT discharge planning -VT prophylaxis Quality VTE Deep Vein Thrombosis/Pulmonary Embolism Present on Admission: No
[2020-04-19] MEDS: ALBUTEROL 2.5 MG/3 ML NEB (ADULT) INH (14:18)
[2020-04-19] MEDS: DOXAZOSIN 2 MG TABLET PO (20:58)
[2020-04-19] MEDS: HYDRALAZINE 25 MG TABLET 50 MG PO (20:58)
[2020-04-20] VITALS (26 sets, daily range): BP systolic 96–142; BP diastolic 52–67; PULSE 61–83; RESP 16–28; TEMP 36.7–37.3; O2SAT 88–99; BMI 31.8
--- NOTE | 2020-04-20 06:22 | PC.NURSE ---
low urine output - 100mL. Per evening shift report, pt output has been running low. Fluids were encouraged while pt was awake on this shift.
[2020-04-20] MEDS: prednisoLONE OPHTH SUSP 1 DROPS EYE-BOTH ×3 (09:02→21:39)
[2020-04-20] MEDS: TAMSULOSIN 0.4 MG CAPSULE PO (09:03)
[2020-04-20] MEDS: HYDRALAZINE 25 MG TABLET 50 MG PO ×2 (09:03→21:38)
[2020-04-20] MEDS: FUROSEMIDE 40 MG TABLET PO (09:03)
[2020-04-20] MEDS: carvediloL 12.5 MG TABLET PO ×2 (09:03→21:38)
[2020-04-20] MEDS: DOCUSATE 100 MG CAPSULE PO ×2 (09:03→22:09)
[2020-04-20] MEDS: AMLODIPINE 5 MG TABLET 10 MG PO (09:03)
[2020-04-20] MEDS: ACETAMINOPHEN 325 MG TABLET 650 MG PO (09:03)
[2020-04-20] MEDS: GABAPENTIN 300 MG CAPSULE PO ×2 (09:03→21:38)
[2020-04-20] MEDS: SENNOSIDES 8.6 MG TABLET 17.2 MG PO (09:03)
[2020-04-20] MEDS: SODIUM CHLORIDE 0.9% FLUSH 10 ML IV ×2 (09:04→21:41)
[2020-04-20] MEDS: LOSARTAN 25 MG TABLET PO (09:08)
--- NOTE | 2020-04-20 10:09 | CM.DPC ---
DCP/Assessment: Reviewed chart. Patient is a 84yr old male admitted to . for elective hernia repair with Dr. Solitario. PCP listed is Dr. Juan. Primary payor is 1)[employer] [facility]. Patient is currently POD#2 from hernia repair, per physician notes, surgery lengthy and requiring more than expected. Therefore, patient admitted as inpatient on 04-18-20. Patient evaluated by PT on 04-19, current recommendation is SNF. OT evaluation pending. Met with patient explained CM/SW role. Patient resting comfortably in bed at time of visit. Patient reports that he is very [place]. Patient resides in [place] alone and uses 4WW for errands outside the residence. Patient agreeable to short SNF stay and would like to go to [facility] if possible. Patient reports that he has been there in the past. Patient also reports that he does have supportive family outside the residence. Patient's granddaughter/Maine active in patient's life as well as grandson/Russell. Placed call to December at [facility] to evaluate for admit. Spoke with surgeon/Dr. Bates and d/c anticipated within the next 24-48hrs. Patient with OT evaluation pending and updated COVID test. P: [facility] evaluating for admit. Anticipate d/c within the next 24-48hrs if stable. Authorization will need to be obtained by facility. TERRY Curran Discharge Planning/Care Management CM Discharge Assessment Start: 04/20/20 09:36 Freq: Status: Active Protocol: Document 04/20/20 09:36 [facility] (Rec: 04/20/20 10:01 [facility] [id number]) Discharge Planning Assessment Assigned Analyst Microbiology Lab TERRY Curran Contact Information Russell Zeng ph# [phone] and [place]/Maine Thacker ph# [phone]. Advance Directives? Yes: POLST History Provided By Patient,Medical Record Has Patient been admitted in last 30 No days? Prior Living Arrangements Mobile home Household Members none Type of transporation used prior to Drives own vehicle admit Independent with ADL's Yes Is patient alert and oriented? Yes Caregiver for Another No: Spouse approximately 3yrs ago. DME Already Rented / Owned FWW / Walker Comment 4WW at baseline, patient uses walker for outings. Barriers to Discharge No Comment Current recommendation is SNF. Patient reports that he is aware and agreeable. First SNF choice is [facility]. Authorization needed through patieint's payor. Discharge Plan Group Home Facility Transportation Arrangement Facility. Referrals Initiated Group Home If patient plan is home with home health pt is current with [facility]. : Has signed face to face form been completed? If patient plan is SNF: Has PASSR been No completed? Inpatient Status as of 04/18/20 Medicare Choice List Provided Yes SNF/HH Preference [facility] Contact Name/Phone December Has Agency SNF been contacted Yes Comment Message left for December with admit at [facility]. Whiteboard Updated in Patient Room with Yes name and ext. # of Analyst Microbiology Lab Review Status In Process Next Review Type Continued Stay Review Pre-Anesthesia Assessment Start: 04/15/20 15:18 Freq: Status: Complete Protocol: Document 04/18/20 07:12 CAB (Rec: 04/15/20 15:30 CAB [id number]) Pre-Anesthesia Assessment PAC Comment BUN 71, creatinine 2.7 eGFR 22.7 on labs 04/17/20 Patient Information Reviewed Via Chart Review Diagnostic Results BMP/CMP,CBC Comment COVID screen @ [facility] 04/15/20 Negative Primary Care Provider Lenard Juan Seen Specialist in Last 12 Months Yes Specialist Seen General surgeon Primary Language Georgian Preferred Language Georgian Equalizing Saw Operator Required No Barriers to Learning None Hx Anesthesia Reactions No Hx Family Anesthesia Reaction No Hx Malignant Hyperthermia No Anesthesia Review Requested No alcohol intake former alcohol intake frequency 0-2 drinks per day Smoking Status Former smoker how long ago did patient quit smoking 1991 Substance Use Type does not use Patient is completely paralyzed or No completely immobile Mental Status Oriented to own ability Is patient on oxygen? No Does patient have [place]O/SOB Yes: Chronic lung disease, sob w/sitting, talking CPAP/BIPAP use prescribed not used Comment PFT @ 04/03/20 Currently Taking a Beta Nilsa Yes: Carvedilol Hx Chest Pain No Hx SOB Yes: Chronic lung disease, sob w/sitting, talking Hx Syncope or Dizziness No Anti-Coagulant Therapy No Hx Pacemaker/ICD No Pacemaker Rep Required? No dysphagia No Urinary Catheter Present Yes Diabetes Yes: Glucose 108 on labs HgbA1C 8.5 Date 04/10/18 Presence of External or Internal Medical Yes Devices Have you had any close contact with Unknown someone diagnosed with COVID-19? Marital Status / Lives With none Patient Discharge Plan Description Return Home Do You Have Any Spiritual Beliefs That No May Affect Your HC Choices? Emergency Contact Name [place] Hand ([facility] ) Advance Directives? Yes: POLST Power of Core Drill Operator Helper No
--- NOTE | 2020-04-20 10:47 | PM.PNPO.1 ---
Subjective Subjective Date Patient Seen: 04/20/20 Time Patient Seen: 10:47 Interval history: No acute events. Physical therapy is recommending SNF requiring 2 person assistance. Exam Vital Signs (past 8 hours): - 04/20/20 04:00 04/20/20 05:13 04/20/20 08:17 Temperature 98.4 F Pulse Rate 81 Respiratory Rate 18 Blood Pressure 142/56 H Pulse Oximetry 92 95 95 04/20/20 08:41 04/20/20 08:47 Temperature 98.7 F Pulse Rate 83 77 Respiratory Rate 20 18 Blood Pressure 129/56 L Pulse Oximetry 95 92 Oxygen Delivery Method Nasal Cannula Oxygen Flow Rate 2 Narrative Exam Narrative: Gen-Elderly male alert no acute distress Abdomen-Soft, left groin incision CDI with amalia no hernia. Objective Labs Result Diagrams: 04/19/20 05:04 04/19/20 05:04 Assessment & Plan Post-op Postoperative Procedures: Procedures Operation Date: 04/18/20 09:15 Actual Procedures Side Surgeon p Hernia Repair - Inguinal (Left) and Poss. Right W/ Mesh Trent Solitario MD Postoperative plan narrative: 84M POD 2 SP left inguinal hernia repair. Multiple comorbidities. Physical therapy recommending SNF. Case management looking into placement. Plan -Regular diet -VTE prophylaxis -Anticipate dc tomorrow Quality VTE Deep Vein Thrombosis/Pulmonary Embolism Present on Admission: No
[2020-04-20] MEDS: OXYCODONE IR 10 MG TABLET PO (11:34)
--- NOTE | 2020-04-20 11:45 | PT.IPTN ---
Surgery Performed Operation Date: 04/18/20 09:15 Actual Procedures p Hernia Repair - Inguinal (Left) and Poss. Right W/ Mesh - Trent Solitario MD Physical Therapy Treatment Note M2 PT-IP Current Condition Start: 04/19/20 12:09 Freq: NEEDED Status: Active Protocol: Document 04/19/20 10:05 AB (Rec: 04/19/20 12:25 AB [id number]) Physical Therapy Current Condition Current Condition Evaluation Date 04/19/20 Treatment Diagnosis s/p L inguinal hernia repair; difficulty in walking Onset Date 04/18/20 Precautions Abdominal Surgery Precautions Log Roll,Lifting Restrictions, Gait Belt above Incisional Area M3 PT-IP Subjective Start: 04/19/20 12:09 Freq: NEEDED Status: Active Protocol: Document 04/20/20 11:45 AW (Rec: 04/20/20 12:39 AW [id number]) Subjective Physical Therapy Visit Type Type Treatment Note Visit Start Time 11:17 Visit Stop Time 11:42 Total Visit Minutes 25 Number of DIRECTOR CASE MANAGEMENT Visits 0 Physical Therapy Visit Comments Patient Comments pt is agreeable to do PT Therapy Pain Assessment Pain When Pain Assessed At Rest Pain Present Pain Present Pain Reported Location Left Inguinal area Scale Used not quantified Pain Management Techniques Modification of Treatment,Re- positioning,Timing of Activity with Medications M4 PT-IP Mobility and Gait Start: 04/19/20 12:09 Freq: NEEDED Status: Active Protocol: Document 04/20/20 11:45 AW (Rec: 04/20/20 12:39 AW [id number]) PT-Bed Mobility Assessment Supine to Sit Supine to Sit Maximum Assistance,Head of Bed Elevated,Bedrails Scooting Scooting to Edge of Bed Maximum Assistance PT-Transfer Assessment Sit to and From Stand Sit to and from Stand Moderate Assistance,2 Person Assistance,Use of Upper Extremities Equipment Transfer Assistive Device Gait Belt,Front Wheeled Walker Orthotic/Prosthetic Devices or Brace: No Transfers Transfer Destination Chair Transfer Technique Stand Step Pivot Transfer Ability Level of Assist Moderate Assistance,2 Person Assistance,Use of Upper Extremities Comments Mobility Comments Pt complained of LLE pain and difficulty moving the leg. He had difficulty keeping his eyes open throughout session today. BP was 109/41 HR71. Reassessed at 98/52 HR 72 3 minutes later. He agreed to perform supine exercises before transferring to the chair which he completed with assist on the left leg for heel slides, ankle pumps, and quad sets. With HOB elevated 45 degrees, pt required max assist to sit on EOB where he also required continuous assist to maintain sitting balance due to heavy leftward lean. BP in sitting was 118/74 . Pt required trunk support while taking medication in this position. With FWW and RN assisting with transfer, pt stood from EOB with bed height raised a few inches from lowest position, requiring mod A x 2 to stabilize the walker and block pt's knees in spite of max cues for knee extension. Pt took several steps, turned, and stepped backward to the chair with max cues for BLE advancement and assist for walker management during transfer. Pt needed max A x 2 to sit due to poor eccentric control. BP after activity was 138/62. Pt was positioned on the chair with call light, chair alarm on. Gait Assessment Gait Gait Assistance Required: Moderate Assistance,2 Person Assist Able to Maintain Weight Bearing Status Yes During Gait Assistive Devices Assistive Device Gait Belt,Front Wheeled Walker Orthotic/Prosthetic Devices or Brace: No Gait Deviations General Gait Pattern Antalgic,Decreased Stride Length,Decreased Feet Clearance,Step-to Gait Factors Limiting Gait Function Factors Limiting Gait Function Decreased Activity Tolerance, Decreased Strength,Difficulty Following Directions,Limited Range of Motion,Pain,Poor Balance,Poor Safety Awareness Comments Gait Comments See mobility comments for details. Transfer only today with pt requiring max cues for BLE knee extension. PT-Balance Assessment Sitting Balance and Reactions Static Sitting Balance Ability Fair Dynamic Sitting Balance Ability Fair Standing Balance and Reactions Static Standing Balance Ability Poor Dynamic Standing Balance Ability Poor Device Used FWW M5 PT-IP Objective Assessments Start: 04/19/20 12:09 Freq: NEEDED Status: Active Protocol: Document 04/19/20 10:05 AB (Rec: 04/19/20 12:25 AB [id number]) Orientation Orientation/Cognition Level of Alertness Alert Orientation Name,Place,Situation Language Function Ability Hard of Hearing Safety Awareness Decreased Safety Awareness Comments pt with decrease vision Gross Range of Motion Lower Extremity ROM Assessment Within Functional Limits Strength Lower Extremity Strength Assessment Bilaterally Impaired Comments Strength Comments RLE 3+/5 LLE 4-/5 Coordination Assessment Gross Coordination Gross Coordination WNL Sensation Assessment Sensation Gross Sensation WNL Muscle Tone Muscle Tone WNL Yes M6 PT-IP Treatment Start: 04/19/20 12:09 Freq: NEEDED Status: Active Protocol: Document 04/20/20 11:45 AW (Rec: 04/20/20 12:39 AW [id number]) Physical Therapy Treatment Exercises Exercises Ankle Pumps,Gluteal Sets,Quad Sets,Heel Slides Education Education Provided Precautions,Safety M7 PT-IP Assessment and Plan Start: 04/19/20 12:09 Freq: NEEDED Status: Active Protocol: Document 04/20/20 11:45 AW (Rec: 04/20/20 12:39 AW [id number]) PT Summary Assessment and Plan Potential Rehabilitation Potential Fair Status of Condition at Evaluation Stable Summary Impairments Pain,ROM,Strength,Balance, Coordination,Sensation,Tone, Cognition,Bed Mobility, Transfers,Gait,Activity Tolerance Progress Towards Goals Slow Progress due to Pain,Slow Progress due to Activity Tolerance Assessment Summary Pt is lethargic at this encounter and continues to require 2 person assist for transfers. As pt lives alone and has no assist at home, he will require SNF rehab before he is able to return home safely. Goals Bed Mobility Goal Standby Assistance Transfer Goal Standby Assistance,Front Wheeled Walker Gait Goal Standby Assistance,Front Wheel Walker Gait Distance 100 Other Goals up/down 4 steps withour rails SBA ambulation using 4WW 150 ft SBA Days to Meet Goals 10 Frequency of Treatment Frequency Of Treatment Once a Day Treatment Plan Physical Therapy Treatment Plan Bed Mobility Training,Transfer Training,Gait Training, Therapeutic Exercise,Balance Retraining,Post Op Education, Discharge Planning,Hot or Cold Pack,Neuromuscular Re-ed, Coordination Retraining,Manual Therapy Other Recommendations and Next Treatment ambulation Focus Recommendations To Nursing Amount of Assist Needed 2 Person Assist Discharge Recommendations PT Discharge Recommendations SNF Rehab Equipment Needed for Home Before FWW if pt goes home and not Discharge safe with 4WW Transportation Needs at Discharge Wheelchair/Cabulance
--- NOTE | 2020-04-20 11:50 | PC.NURSE ---
Day shift: Pt having left sided weakness when OOB w/ PT at approx 1145. Slurred works and left sided facial droop. Left deviation of the tongue as well. Pt OOB to chair. Dr Rojas has seen the Pt. This caption writer has also informed Dr Bates. Following stroke protocol at this time. BEFAST as follows. Balance (stated he did feel like he was falling to his left). Eyes (Pt has limited vision already). Face (Left sided facial droop. Arms (Pt can raise both arms). Speech (speech is slurred). Time (called code stroke at 1151). Will continue to monitor.
--- NOTE | 2020-04-20 12:05 | DI.CT.S_ITS ---
PROCEDURE: CT STROKE INDICATIONS: Stroke protocol TECHNIQUE: Noncontrast 4.5 mm thick angled axial sections acquired from the foramen magnum to the vertex, with coronal reformats. For radiation dose reduction, the following was used: automated exposure control, adjustment of mA and/or kV according to patient size. COMPARISON: None. FINDINGS: Image quality: There is some motion degradation of the study. CSF spaces: Basal cisterns are patent. No extra-axial fluid collections. The ventricles are symmetric in size and shape. Brain: No intracranial bleeds or masses. There is cerebral volume loss for age, with resultant ventricular and sulcal prominence. There are periventricular and deep white matter chronic small vessel ischemic changes. There is intracranial internal carotid artery atherosclerosis. Skull and face: Calvarium and visualized facial bones appear intact, without suspicious lesions. Sinuses: Visualized sinuses and mastoids are clear. IMPRESSION: No acute intracranial process. Findings were personally telephoned to Dr. Rojas immediately after study was made available for interpretation, 1316 hours on 04/20/20 This study fulfills neurological imaging criteria for inclusion or exclusion of acute stroke therapies based on available published neurological guidelines. Dictated by: Brian Hart M.D. on 04/20/2020 at 13:08 Approved by: Brian Hart M.D. on 04/20/2020 at 13:17
--- NOTE | 2020-04-20 12:07 | DI.CT.S_ITS ---
PROCEDURE: CT CHEST WO CON INDICATIONS: CHF TECHNIQUE: Noncontrast 5 mm thick sections acquired from the pulmonary apices to the posterior costophrenic angles. 1 mm lung window, 5 mm thick coronal and sagittal and 7 mm axial MIP reformats were then acquired. For radiation dose reduction, the following was used: automated exposure control, adjustment of mA and/or kV according to patient size. COMPARISON: None. FINDINGS: Image quality: Excellent. Lungs and pleura: No acute air space opacities. No pleural effusions or pneumothorax. Central and peripheral airways are patent and normal in caliber. Consolidation of the left lower lobe. Bibasilar atelectasis. Trace bilateral pleural effusions. Mediastinum: Moderate larger the heart. Multivessel coronary artery calcifications. No pericardial effusion. No mediastinal adenopathy by size criteria. Thoracic aorta and central pulmonary arteries are normal in size. Vascular calcification of the abdominal aorta and thoracic aorta. Esophagus is normal in caliber. Small hiatal hernia. Bones and chest wall: No suspicious bony lesions. No vertebral body compression fractures. No axillary or supraclavicular adenopathy by size criteria. Thyroid gland is heterogeneous with a 2.6 cm nodule in the posterior left thyroid lobe. Abdomen: Visualized of abdomen demonstrates a calcified gallstone as well as scattered colonic diverticula. Vascular calcifications of the branches of the renal arteries. IMPRESSION: Left lower lobe consolidation. Trace bilateral pleural effusions. Cholelithiasis. Colonic diverticulosis. Cardiomegaly. Dictated by: Hugh Perez M.D. on 04/20/2020 at 12:25 Approved by: Hugh Perez M.D. on 04/20/2020 at 12:31
[2020-04-20 12:39] LABS: HCO3 ABG 20 mmol/L (22-26); PCO2 ABG 38.1 mmHg (35-45); PO2 ABG 58 mmHg (80-100); TCO2 ABG 22 mmol/L (21-31); pH ABG 7.34 (7.35-7.45)
--- NOTE | 2020-04-20 12:39 | PT.IPTN ---
Surgery Performed Operation Date: 04/18/20 09:15 Actual Procedures p Hernia Repair - Inguinal (Left) and Poss. Right W/ Mesh - Trent Solitario MD Physical Therapy Treatment Note M2 PT-IP Current Condition Start: 04/19/20 12:09 Freq: NEEDED Status: Active Protocol: Document 04/19/20 10:05 AB (Rec: 04/19/20 12:25 AB [id number]) Physical Therapy Current Condition Current Condition Evaluation Date 04/19/20 Treatment Diagnosis s/p L inguinal hernia repair; difficulty in walking Onset Date 04/18/20 Precautions Abdominal Surgery Precautions Log Roll,Lifting Restrictions, Gait Belt above Incisional Area M3 PT-IP Subjective Start: 04/19/20 12:09 Freq: NEEDED Status: Active Protocol: Document 04/20/20 12:26 AW (Rec: 04/20/20 12:39 AW [id number]) Subjective Physical Therapy Visit Type Type Treatment Note Visit Start Time 11:17 Visit Stop Time 11:42 Total Visit Minutes 25 Number of CATEGORY DEVELOPMENT MANAGER Visits 0 Physical Therapy Visit Comments Patient Comments pt is agreeable to do PT Therapy Pain Assessment Pain When Pain Assessed At Rest Pain Present Pain Present Pain Reported Location Left Inguinal area Scale Used not quantified Pain Management Techniques Modification of Treatment,Re- positioning,Timing of Activity with Medications M4 PT-IP Mobility and Gait Start: 04/19/20 12:09 Freq: NEEDED Status: Active Protocol: Document 04/20/20 12:26 AW (Rec: 04/20/20 12:39 AW [id number]) PT-Bed Mobility Assessment Supine to Sit Supine to Sit Maximum Assistance,Head of Bed Elevated,Bedrails Scooting Scooting to Edge of Bed Maximum Assistance PT-Transfer Assessment Sit to and From Stand Sit to and from Stand Moderate Assistance,2 Person Assistance,Use of Upper Extremities Equipment Transfer Assistive Device Gait Belt,Front Wheeled Walker Orthotic/Prosthetic Devices or Brace: No Transfers Transfer Destination Chair Transfer Technique Stand Step Pivot Transfer Ability Level of Assist Moderate Assistance,2 Person Assistance,Use of Upper Extremities Comments Mobility Comments Pt complained of LLE pain and difficulty moving the leg. He had difficulty keeping his eyes open throughout session today. BP was 109/41 HR71. Reassessed at 98/52 HR 72 3 minutes later. He agreed to perform supine exercises before transferring to the chair which he completed with assist on the left leg for heel slides, ankle pumps, and quad sets. With HOB elevated 45 degrees, pt required max assist to sit on EOB where he also required continuous assist to maintain sitting balance due to heavy leftward lean. BP in sitting was 118/74 . Pt required trunk support while taking medication in this position. With FWW and RN assisting with transfer, pt stood from EOB with bed height raised a few inches from lowest position, requiring mod A x 2 to stabilize the walker and block pt's knees in spite of max cues for knee extension. Pt took several steps, turned, and stepped backward to the chair with max cues for BLE advancement and assist for walker management during transfer. Pt needed max A x 2 to sit due to poor eccentric control. BP after activity was 138/62. Pt was positioned on the chair with call light, chair alarm on. Gait Assessment Gait Gait Assistance Required: Moderate Assistance,2 Person Assist Able to Maintain Weight Bearing Status Yes During Gait Assistive Devices Assistive Device Gait Belt,Front Wheeled Walker Orthotic/Prosthetic Devices or Brace: No Gait Deviations General Gait Pattern Antalgic,Decreased Stride Length,Decreased Feet Clearance,Step-to Gait Factors Limiting Gait Function Factors Limiting Gait Function Decreased Activity Tolerance, Decreased Strength,Difficulty Following Directions,Limited Range of Motion,Pain,Poor Balance,Poor Safety Awareness Comments Gait Comments See mobility comments for details. Transfer only today with pt requiring max cues for BLE knee extension. PT-Balance Assessment Sitting Balance and Reactions Static Sitting Balance Ability Fair Dynamic Sitting Balance Ability Fair Standing Balance and Reactions Static Standing Balance Ability Poor Dynamic Standing Balance Ability Poor Device Used FWW M5 PT-IP Objective Assessments Start: 04/19/20 12:09 Freq: NEEDED Status: Active Protocol: Document 04/19/20 10:05 AB (Rec: 04/19/20 12:25 AB [id number]) Orientation Orientation/Cognition Level of Alertness Alert Orientation Name,Place,Situation Language Function Ability Hard of Hearing Safety Awareness Decreased Safety Awareness Comments pt with decrease vision Gross Range of Motion Lower Extremity ROM Assessment Within Functional Limits Strength Lower Extremity Strength Assessment Bilaterally Impaired Comments Strength Comments RLE 3+/5 LLE 4-/5 Coordination Assessment Gross Coordination Gross Coordination WNL Sensation Assessment Sensation Gross Sensation WNL Muscle Tone Muscle Tone WNL Yes M6 PT-IP Treatment Start: 04/19/20 12:09 Freq: NEEDED Status: Active Protocol: Document 04/20/20 12:26 AW (Rec: 04/20/20 12:39 AW [id number]) Physical Therapy Treatment Exercises Exercises Ankle Pumps,Gluteal Sets,Quad Sets,Heel Slides Education Education Provided Precautions,Safety M7 PT-IP Assessment and Plan Start: 04/19/20 12:09 Freq: NEEDED Status: Active Protocol: Document 04/20/20 12:26 AW (Rec: 04/20/20 12:39 AW [id number]) PT Summary Assessment and Plan Potential Rehabilitation Potential Fair Status of Condition at Evaluation Stable Summary Impairments Pain,ROM,Strength,Balance, Coordination,Sensation,Tone, Cognition,Bed Mobility, Transfers,Gait,Activity Tolerance Progress Towards Goals Slow Progress due to Pain,Slow Progress due to Activity Tolerance Assessment Summary Pt is lethargic at this encounter and continues to require 2 person assist for transfers. As pt lives alone and has no assist at home, he will require SNF rehab before he is able to return home safely. Goals Bed Mobility Goal Standby Assistance Transfer Goal Standby Assistance,Front Wheeled Walker Gait Goal Standby Assistance,Front Wheel Walker Gait Distance 100 Other Goals up/down 4 steps withour rails SBA ambulation using 4WW 150 ft SBA Days to Meet Goals 10 Frequency of Treatment Frequency Of Treatment Once a Day Treatment Plan Physical Therapy Treatment Plan Bed Mobility Training,Transfer Training,Gait Training, Therapeutic Exercise,Balance Retraining,Post Op Education, Discharge Planning,Hot or Cold Pack,Neuromuscular Re-ed, Coordination Retraining,Manual Therapy Other Recommendations and Next Treatment ambulation Focus Recommendations To Nursing Amount of Assist Needed 2 Person Assist Discharge Recommendations PT Discharge Recommendations SNF Rehab Equipment Needed for Home Before FWW if pt goes home and not Discharge safe with 4WW Transportation Needs at Discharge Wheelchair/Cabulance
[2020-04-20 12:40] LABS: Fractionated Inspired Oxygen 44; Oxygen Saturation ABG 88 % (95-100)
[2020-04-20 12:45] LABS: Add Manual Diff / Slide Review NO; Basophils Absolute Auto 0 /uL (0-100); Basophils Percent Auto 0.4 % (0-2); Eosinophils Absolute Auto 400 /uL (0-450); Eosinophils Percent Auto 3.5 % (2-4); Hematocrit 26.8 % (41-53); Hemoglobin 8.9 g/dL (13.5-17.5); Lymphocytes Absolute Auto 600 /uL (1100-4500); Lymphocytes Percent Auto 6.1 % (25-40); Mean Corpuscular HGB Conc 33.3 % (30-36); Mean Corpuscular Hemoglobin 29.6 PG (26-34); Mean Corpuscular Volume 88.9 fL (80-100); Monocytes Absolute Auto 600 /uL (0-900); Neutrophils Absolute Auto 9000 /uL (1500-7000); Platelet Count 151 X10^3/uL (150-400); Red Blood Cell Count 3.01 X10^6/uL (4.5-5.9); Red Cell Distribution Width 14.8 % (11.6-14.8); White Blood Cell Count 10.7 X10^3/uL (4.5-11.0)
[2020-04-20 12:59] LABS: Appearance Urine UA CLOUDY; Bilirubin Urine UA NEGATIVE (NEGATIVE); Color Urine UA YELLOW; Glucose Urine UA TRACE g/dL (Negative); Ketones Urine UA NEGATIVE (NEGATIVE); Leukocyte Esterase Urine UA 2+ (NEGATIVE); Nitrite Urine UA NEGATIVE (Negative); Occult Blood Urine UA TRACE-INTACT (Negative); Protein Urine UA 2+ (Negative); Specific Gravity Urine UA 1.015 (1.000-1.035); Urobilinogen Urine UA 0.2 E.U./dL (0.2)
[2020-04-20 13:06] LABS: Bacteria Urine Few (2-10); Culture Indicated Urine Specimen Cultured; Granular Casts Urine 5-10/LPF; Hyaline Casts Urine 1-5/LPF; Mucus Urine 1+ (Negative); RBC Urine 0-1/HPF (0-5/HPF); Squamous Epithelial Cell Urine None Seen (0-5/HPF); Transitional Epi Cells Urine 1-5/HPF (0-5/HPF); WBC Urine 30-100/HPF (0-5/HPF)
[2020-04-20 13:36] LABS: Albumin 3.1 g/dL (3.5-5.0); Alkaline Phosphatase 96 U/L (38-126); Aspartate Aminotransferase 19 IU/L (17-59); BUN Creatinine Ratio 18.6 (6-22); Bilirubin Total 0.3 mg/dL (0.2-1.3); Blood Urea Nitrogen 66 mg/dL (9-20); Calcium 7.7 mg/dL (8.4-10.2); Carbon Dioxide 26 mmol/L (22-32); Chloride 101 mmol/L (98-107); Estimated Glomerular Filt Rate 16.6 mL/min (>60); Glucose 137 mg/dL (80-110); HEMOLYSIS < 15 (0-50); Potassium 4.8 mmol/L (3.4-5.1); Sodium 130 mmol/L (137-145); Total Protein 6.1 g/dL (6.3-8.2)
--- NOTE | 2020-04-20 13:37 | PC.NURSE ---
Day shift: Pt resting in bed at this time. No c/o pain or discomfort. Is on 3L NC with Spo2 of 93%. Pt able to lift and move both upper and lower extremities. Pt is A&Ox3. BP 107/55. Dr Rojas aware of what has been written in this note.
[2020-04-20 13:38] LABS: Lactate (Lactic Acid) 0.6 mmol/L (0.7-2.1); Magnesium 2.7 mg/dL (1.6-2.3)
[2020-04-20 13:39] LABS: Alanine Aminotransferase < 4 IU/L (<50)
[2020-04-20 13:46] LABS: Add Manual Diff / Slide Review NO; Basophils Absolute Auto 0 /uL (0-100); Basophils Percent Auto 0.5 % (0-2); Eosinophils Absolute Auto 300 /uL (0-450); Eosinophils Percent Auto 3.3 % (2-4); Lymphocytes Absolute Auto 500 /uL (1100-4500); Lymphocytes Percent Auto 5.6 % (25-40); Mean Corpuscular HGB Conc 33.4 % (30-36); Mean Corpuscular Hemoglobin 29.6 PG (26-34); Mean Corpuscular Volume 88.5 fL (80-100); Monocytes Absolute Auto 500 /uL (0-900); Monocytes Percent Auto 5.7 % (3-14); Neutrophils Absolute Auto 7600 /uL (1500-7000); Neutrophils Percent Auto 84.9 % (50-75); Platelet Count 136 X10^3/uL (150-400); Red Blood Cell Count 3.05 X10^6/uL (4.5-5.9); Red Cell Distribution Width 14.3 % (11.6-14.8); White Blood Cell Count 8.9 X10^3/uL (4.5-11.0)
[2020-04-20 13:47] LABS: Troponin I 0.013 ng/mL (0.01-0.034)
[2020-04-20] MEDS: HEPARIN 5,000 UNIT/ML VIAL 5000 UNIT SUBCUT ×2 (14:00→21:41)
[2020-04-20] MEDS: ASPIRIN EC 325 MG TABLET PO (14:20)
[2020-04-20] MEDS: SODIUM CHLORIDE IRRIG SOLUTION 1,000 ML 250 ML IRR (14:53)
[2020-04-20] MEDS: MEROPENEM 500 MG in SODIUM CHLORIDE 0.9% 100 ML 200 ML IV (15:09)
--- NOTE | 2020-04-20 16:43 | P.CONS_ITS ---
History of Present Illness Consult details Date Patient Seen: 04/20/20 Chief complaint: SDC *OPB* Reason for consult: Code Stroke Requesting provider: Khanh Bates Narrative: Hernan Celeste is an 84-year-old male with a past medical history significant for advanced COPD, hypertension, CHF, diabetes mellitus type 2, non-insulin using, and CKD 4 who is a postop day 2 patient undergoing large incarcerated bilateral inguinal hernia repair with orchectomy. This morning the nurse noted slurred speech and left-sided weakness and a code stroke was called at approximatelt 11:51 with last known normal ten minutes prior. The patient was quite dyspneic when I arrived to bedside. His speech was slurred but appeared to be due to severe dyspnea. The patient reported he was ?not doing well.? When I inquired why he was not doing well at first he was unable to give specific detail as to why he was not doing well and several minutes later reported it he was not doing well because he was very short of breath and he was ?stuttering which he has never done before?. He denied headache, vision changes, lightheadedness or dizzines, chest pain, abdominal pain, nausea, vomiting, fever, chills, or diarrhea. A stroke assessment was completed and difficult due to patient being nearly blind and he scored an NIH of 2 for dysarthria and slurred speech. He did not have facial droop. He had generalized weakness and was specifically weak at left hip flexors and his right distal extensors and flexors. Ordered full lab work, ABG, and CT without contrast. Patient needed IV replaced which was performed while lab work and ABG were obtained. Patient was found to be hypoxemic on ABG and required 6 L of supplemental oxygen to maintain oxygen s aturation low 90s and additionally added CT chest without contrast. Reviewed patient case and CT with [facility] tele neurology Dr. Morales and due to recent surgery and mild neurological deficit did not recommend tPA. Patient received aspirin 325 mg x [address] chest without contrast demonstrated left lower lobe complete consolidation likely due to atelectasis and possible mucus plugging. Discussed case with on-call pulmonology at [facility] Dr. Christianson who recommended CPT, mobilization, oxygenation, and bronchoscopy if possible. Meds Home Medications and Allergies Home Medications Medication Instructions Recorded Confirmed Type amlodipine 10 mg PO DAILY 06/22/18 04/15/20 History carvedilol 12.5 mg PO BID 06/22/18 04/18/20 History furosemide [Lasix] 40 mg PO DAILY 06/22/18 04/18/20 History tamsulosin [Flomax] 0.4 mg PO DAILY 06/22/18 04/15/20 History albuterol sulfate 90 mcg/actuation 2 puff INHALATION Q6H PRN 02/20/20 04/18/20 History aerosol inhaler doxazosin 2 mg tablet 2 mg PO BEDTIME 02/20/20 04/15/20 History hydralazine 50 mg PO TID 04/18/20 04/18/20 History losartan 25 mg PO DAILY 04/18/20 04/18/20 History prednisolone acetate 1 drp EYE-BOTH TID 04/18/20 04/18/20 History Allergies Allergy/AdvReac Type Severity Reaction Status Date / Time No Known Drug Allergies Allergy Verified 04/18/20 08:19 Review of Systems Review of Systems Narrative: A 10 system comprehensive review of systems was conducted with the patient and found to be negative except as above in the History of Present Illness. Exam Vital Signs (past 8 hours): - 04/20/20 08:47 04/20/20 11:32 04/20/20 11:51 Temperature Pulse Rate 77 72 74 Respiratory Rate 18 Blood Pressure 98/52 L 96/52 L Pulse Oximetry 92 94 04/20/20 11:58 04/20/20 12:13 04/20/20 12:15 Temperature 98.7 F Pulse Rate 71 73 Respiratory Rate 28 H 24 Blood Pressure 133/56 L 133/56 L Pulse Oximetry 95 93 88 L 04/20/20 12:16 04/20/20 12:52 04/20/20 13:02 Temperature 98.1 F Pulse Rate 63 Respiratory Rate 21 Blood Pressure 107/55 L Pulse Oximetry 92 93 95 04/20/20 13:52 04/20/20 15:30 04/20/20 15:46 Temperature Pulse Rate 69 Respiratory Rate 20 Blood Pressure 109/53 L Pulse Oximetry 93 91 95 Oxygen Delivery Method Nasal Cannula Oxygen Flow Rate 4 Narrative Exam Narrative: General: Elderly male sitting in bedside chair and in no acute distress, mild slurring of speech and dysarthria that appears to be due to degree of conversational dyspnea. HEENT: Normocephalic, atraumatic. External ears without defect. 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 Anicteric sclerae, moist conjunctivae, and no lid lag. Oropharynx free of erythema and cobble stoning with moist mucosa. Mild slurred speech and dysarthria. Neck: Supple with full range of motion. No lymphadenopathy or thyromegaly. Cardiovascular: Regular rate and rhythm without murmurs, rubs, or gallops appreciated. Pulmonary: Diminished throughout all lung byrd particularly in bases with occasional crackle. Mild use of accessory muscles with conversational dyspnea present. Abdomen: Soft, obese, bowel sounds present, tenderness to palpation in lower abdomen, nondistended. No hepatosplenomegaly or masses appreciated. Genitourinary: Flynn catheter in place with very large edematous scrotum. Extremities: No clubbing or cyanosis. Mild bilateral pitting edema to pretibial area bilaterally. Skin: Normal temperature, turgor, and texture; no rash, ulcers, or subcutaneous nodules appreciated. Neurological: Mild slurred speech and dysarthria. No facial droop. Generalized weakness without focal deficit. Reflexes, coordination, and sensory function within normal limits. Patient nearly blind. Psychiatric: Normal mood and affect. Alert and oriented to person, place, and time. Objective Labs Result Diagrams: 04/21/20 04:47 04/21/20 04:47 Labs: Laboratory Results - last 24 hr 04/20/20 04/20/20 04/20/20 12:20 12:22 12:50 WBC 10.7 RBC 3.01 L Hgb 8.9 L Hct 26.8 L MCV 88.9 MCH 29.6 MCHC 33.3 RDW 14.8 Plt Count 151 Neut % (Auto) 84.0 H Lymph % (Auto) 6.1 L [place] % (Auto) 6.0 Eos % (Auto) 3.5 Baso % (Auto) 0.4 Neut # (Auto) 9000 H Lymph # (Auto) 600 L [place] # (Auto) 600 Eos # (Auto) 400 Baso # (Auto) 0 ABG pH 7.34 L ABG pCO2 38.1 ABG pO2 58 L ABG HCO3 20 L ABG Total CO2 22 ABG O2 Saturation 88 L ABG Base Excess -5.0 L FiO2 44 Sodium Potassium Chloride Carbon Dioxide BUN Creatinine Estimated GFR BUN/Creatinine Ratio Glucose Lactate Calcium Magnesium Total Bilirubin AST ALT Alkaline Phosphatase Troponin I Total Protein Albumin Globulin Albumin/Globulin Ratio Procalcitonin Urine Color Yellow Urine Appearance Cloudy Urine pH 5.0 Ur Specific [place] 1.015 Urine Protein 2+ H Urine Glucose (UA) Trace H Urine Ketones Negative Urine Occult Blood Trace-intact Urine Nitrate Negative Urine Bilirubin Negative Urine Urobilinogen 0.2 Ur Leukocyte Esterase 2+ H Urine RBC 0-1/hpf D Urine WBC 30-100/hpf H Ur Squamous Epith Cells None seen Ur Transition Epith Cell 1-5/hpf Urine Bacteria Few (2-10) H Hyaline Casts 1-5/lpf Granular Casts 5-10/lpf Urine Mucus 1+ H Ur Culture Indicated? Specimen cultured 04/20/20 04/20/20 04/20/20 13:13 13:13 13:13 WBC RBC Hgb Hct MCV MCH MCHC RDW Plt Count Neut % (Auto) Lymph % (Auto) [place] % (Auto) Eos % (Auto) Baso % (Auto) Neut # (Auto) Lymph # (Auto) [place] # (Auto) Eos # (Auto) Baso # (Auto) ABG pH ABG pCO2 ABG pO2 ABG HCO3 ABG Total CO2 ABG O2 Saturation ABG Base Excess FiO2 Sodium 130 L Potassium 4.8 Chloride 101 Carbon Dioxide 26 BUN 66 H Creatinine 3.54 H Estimated GFR 16.6 L BUN/Creatinine Ratio 18.6 Glucose 137 H Lactate Calcium 7.7 L Magnesium 2.7 H Total Bilirubin 0.3 AST 19 ALT < 4 Alkaline Phosphatase 96 Troponin I 0.013 Total Protein 6.1 L Albumin 3.1 L Globulin 3.0 Albumin/Globulin Ratio 1.0 Procalcitonin Urine Color Urine Appearance Urine pH Ur Specific [place] Urine Protein Urine Glucose (UA) Urine Ketones Urine Occult Blood Urine Nitrate Urine Bilirubin Urine Urobilinogen Ur Leukocyte Esterase Urine RBC Urine WBC Ur Squamous Epith Cells Ur Transition Epith Cell Urine Bacteria Hyaline Casts Granular Casts Urine Mucus Ur Culture Indicated? 04/20/20 04/20/20 04/20/20 13:13 13:13 13:13 WBC 8.9 RBC 3.05 L Hgb 9.0 L Hct 27.0 L MCV 88.5 MCH 29.6 MCHC 33.4 RDW 14.3 Plt Count 136 L Neut % (Auto) 84.9 H Lymph % (Auto) 5.6 L [place] % (Auto) 5.7 Eos % (Auto) 3.3 Baso % (Auto) 0.5 Neut # (Auto) 7600 H Lymph # (Auto) 500 L [place] # (Auto) 500 Eos # (Auto) 300 Baso # (Auto) 0 ABG pH ABG pCO2 ABG pO2 ABG HCO3 ABG Total CO2 ABG O2 Saturation ABG Base Excess FiO2 Sodium Potassium Chloride Carbon Dioxide BUN Creatinine Estimated GFR BUN/Creatinine Ratio Glucose Lactate 0.6 L Calcium Magnesium Total Bilirubin AST ALT Alkaline Phosphatase Troponin I Total Protein Albumin Globulin Albumin/Globulin Ratio Procalcitonin 8.80 H Urine Color Urine Appearance Urine pH Ur Specific [place] Urine Protein Urine Glucose (UA) Urine Ketones Urine Occult Blood Urine Nitrate Urine Bilirubin Urine Urobilinogen Ur Leukocyte Esterase Urine RBC Urine WBC Ur Squamous Epith Cells Ur Transition Epith Cell Urine Bacteria Hyaline Casts Granular Casts Urine Mucus Ur Culture Indicated? Assessment & Plan Assessment & Plan narrative: Hernan Celeste is an 84-year-old male with a past medical history significant for advanced COPD, hypertension, CHF, diabetes mellitus type 2, non-insulin using, and CKD 4 who is a postop day 2 patient undergoing large incarcerated bilateral inguinal hernia repair with orchectomy. Reviewed patient case and CT with [facility] neurology Dr. Morales and due to recent surgery and mild neurological deficit did not recommend tPA. Patient received aspirin 325 mg x 1, started aspirin 81 mg daily and atorvastain 40 mg daily at bedtime for stroke prophylaxis, plan to risk stratify and pursue MR stroke protocol tomorrow. CT chest without contrast demonstrated left lower lobe complete consolidation likely due to atelectasis and possible mucus plugging. Discussed case with on-call pulmonology at [facility] Dr. Christianson who recommended chest physiotherapy and pulmonary toilet especially incentive spirometry, mobilization with PT and OT, oxygenation, and bronchoscopy if possible. Patient has weak cough and placed on aspiration precautions with head of the bed at 45? at all time. Of note, urinalysis was performed due to possible neurological deficit and appeared grossly infected, as well as, procalcitonin elevated at 8 and creatinine at 3.54 with CLAIRE on CKD stage 4 (likl ey due to decreased perfusion from low BP and ATN, as well as, UTI. Discontinued losartan and amlodipine. Continued carvedilol and hydralazine. Patient was started meropenem 500 mg twice twice daily renally dosed to treat UTI as patient has had Enterobacter in the past due to chronic Flynn catheter and is highly resistant as well to treat possible lung infection. Patient fluid overloaded and significantlydyspneic, therefore, unable to give IV fluids to treat infection and aid in cerebral perfusion. Thank you for this most interesting consult. Medicine team will continue to follow along with you.
[2020-04-20 16:45] LABS: HCO3 ABG 20 mmol/L (22-26); Oxygen Saturation ABG 95 % (95-100); PO2 ABG 87 mmHg (80-100); TCO2 ABG 22 mmol/L (21-31); pH ABG 7.29 (7.35-7.45)
[2020-04-20 16:46] LABS: Fractionated Inspired Oxygen 0.44
--- NOTE | 2020-04-20 17:10 | DI.MRI.S_ITS ---
PROCEDURE: MR HEAD/BRAIN WO CON INDICATIONS: Dysarthria, slurred speech TECHNIQUE: Non-contrast axial T1 spin echo, axial T2 fast spin echo, sagittal and axial FLAIR, coronal T2 fast spin echo, axial gradient echo, axial diffusion and ADC through the brain. This the patient did not tolerate knee examination well and was moving. Only the noncontrast brain portion of the ordered stroke protocol was performed at this time. COMPARISON: [facility], CT, CT STROKE, 04/20/2020, 12:12. FINDINGS: Image quality: This examination is limited by involuntary motion artifact. CSF spaces: Ventricles appear symmetric in size and shape. Basal cisterns are patent. No extra-axial fluid collections. Brain: No intracranial bleeds or mass effects. There is cerebral volume loss for age. There are periventricular and deep white matter chronic small vessel ischemic changes. Brainstem appears normal. Diffusion-weighted images show no acute ischemic insults. No chronic ischemic insults. Normal intravascular flow voids are present. Skull and face: Calvarial bone marrow is normal in signal. Orbits are normal. Note is made of bilateral lens replacements. Sinuses: Sinuses and mastoids are clear. IMPRESSION: Limited study demonstrating no findings acute or subacute infarction. Note is made of age-appropriate brain parenchymal volume loss and chronic small vessel ischemic changes. The patient did not tolerate the examination well and was moving during the examination. Only the noncontrast brain MRI portion of the ordered stroke protocol was performed at this time. Dictated by: Arnulfo Little M.D. on 04/21/2020 at 16:20 Approved by: Arnulfo Little M.D. on 04/21/2020 at 16:21
[2020-04-20] MEDS: ALBUTEROL 2.5 MG/3 ML NEB (ADULT) INH (21:20)
[2020-04-20] MEDS: DOXAZOSIN 2 MG TABLET PO (21:37)
[2020-04-20] MEDS: guaiFENesin ER 600 MG TAB 1200 MG PO (21:39)
--- NOTE | 2020-04-20 22:25 | PC.NURSE ---
End of Shift note: Patient placed on cpap for sleep with 3L bleedin. Difficult to arouse from sleep for 2100 meds. Pt said he was having a funny dream and didn't want to wake up. Swallowed pills without difficulty, placed back on cpap. VSS, SPO2 97. Has denied pain this shift.
[2020-04-21] VITALS (21 sets, daily range): BP systolic 98–123; BP diastolic 50–68; PULSE 60–77; RESP 13–24; TEMP 36.3–36.9; O2SAT 91–98
[2020-04-21] MEDS: ACETAMINOPHEN 325 MG TABLET 650 MG PO (02:57)
[2020-04-21] MEDS: MEROPENEM 500 MG in SODIUM CHLORIDE 0.9% 100 ML 200 ML IV ×2 (02:58→14:23)
--- NOTE | 2020-04-21 03:25 | RT ---
Spoke w/ Dr Rojas, she stating that we can do CPT w/a. Allowing pt to sleep through NOC.
[2020-04-21 05:13] LABS: Add Manual Diff / Slide Review NO; Basophils Absolute Auto 0 /uL (0-100); Basophils Percent Auto 0.5 % (0-2); Eosinophils Absolute Auto 300 /uL (0-450); Eosinophils Percent Auto 3.8 % (2-4); Lymphocytes Absolute Auto 400 /uL (1100-4500); Lymphocytes Percent Auto 5.7 % (25-40); Mean Corpuscular HGB Conc 33.4 % (30-36); Mean Corpuscular Hemoglobin 29.5 PG (26-34); Mean Corpuscular Volume 88.5 fL (80-100); Monocytes Absolute Auto 400 /uL (0-900); Monocytes Percent Auto 5.6 % (3-14); Neutrophils Absolute Auto 6600 /uL (1500-7000); Neutrophils Percent Auto 84.4 % (50-75); Red Blood Cell Count 2.69 X10^6/uL (4.5-5.9); Red Cell Distribution Width 14.3 % (11.6-14.8); White Blood Cell Count 7.8 X10^3/uL (4.5-11.0)
[2020-04-21 05:17] LABS: Magnesium 2.8 mg/dL (1.6-2.3)
[2020-04-21 05:19] LABS: BUN Creatinine Ratio 18.1 (6-22); Blood Urea Nitrogen 67 mg/dL (9-20); Calcium 7.4 mg/dL (8.4-10.2); Carbon Dioxide 21 mmol/L (22-32); Chloride 100 mmol/L (98-107); Estimated Glomerular Filt Rate 15.8 mL/min (>60); Glucose 147 mg/dL (80-110); HEMOLYSIS < 15 (0-50); Potassium 4.7 mmol/L (3.4-5.1); Sodium 128 mmol/L (137-145)
[2020-04-21 05:20] LABS: Hematocrit 23.8 % (41-53)
[2020-04-21 05:21] LABS: Platelet Count 119 X10^3/uL (150-400)
[2020-04-21 05:36] LABS: Procalcitonin 7.41 ng/mL (<0.5)
[2020-04-21] MEDS: HEPARIN 5,000 UNIT/ML VIAL 5000 UNIT SUBCUT ×3 (06:29→21:10)
--- NOTE | 2020-04-21 06:40 | PC.NURSE ---
Pt very lethargic throughout the night. Awake and alert since 0330. Alert and oriented but confused at times about situation. Hard of hearing. Speech slightly slurred. Pt reports mild pain in scrotum area, resolved with tylenol. Pt using CPAP throughout the night with 3L bleed in. Switched to NC this am and sats running at 95% on 3L. Flynn intact. Pt has no complaints.
[2020-04-21 07:28] LABS: Cholesterol 110 mg/dL (140-199); HDL Cholesterol 20 mg/dL (40-60); LDL Cholesterol Calculated 51 mg/dL (<100); Triglycerides 195 mg/dL (35-150)
[2020-04-21 07:29] LABS: Hemoglobin A1C% w Est Avg Glu 5.7 % (4.0-6.0)
[2020-04-21] MEDS: ALBUTEROL/IPRATROPIUM 3 ML AMPUL INH ×4 (07:29→19:45)
[2020-04-21] MEDS: guaiFENesin ER 600 MG TAB 1200 MG PO ×2 (08:00→21:09)
[2020-04-21] MEDS: TAMSULOSIN 0.4 MG CAPSULE PO (08:00)
[2020-04-21] MEDS: SENNOSIDES 8.6 MG TABLET 17.2 MG PO (08:00)
[2020-04-21] MEDS: DOCUSATE 100 MG CAPSULE PO ×2 (08:01→21:10)
[2020-04-21] MEDS: ASPIRIN EC 81 MG TABLET PO (08:01)
[2020-04-21] MEDS: carvediloL 12.5 MG TABLET PO (08:01)
[2020-04-21] MEDS: GABAPENTIN 300 MG CAPSULE PO ×2 (08:01→21:09)
[2020-04-21] MEDS: FUROSEMIDE 40 MG TABLET PO (08:01)
[2020-04-21] MEDS: SODIUM CHLORIDE 0.9% 1,000 ML 75 ML IV (08:01)
[2020-04-21] MEDS: OXYCODONE IR 10 MG TABLET PO (08:01)
[2020-04-21] MEDS: HYDRALAZINE 25 MG TABLET 50 MG PO (08:01)
[2020-04-21] MEDS: ATORVASTATIN 20 MG TABLET 40 MG PO ×2 (08:01→21:09)
[2020-04-21] MEDS: SODIUM CHLORIDE 0.9% FLUSH 10 ML IV ×2 (08:02→21:09)
--- NOTE | 2020-04-21 08:07 | RT ---
CPT CHARTED ON RT FLOWSHEET
[2020-04-21] MEDS: prednisoLONE OPHTH SUSP 1 DROPS EYE-BOTH ×3 (09:27→21:10)
[2020-04-21] MEDS: FUROSEMIDE 20 MG/2 ML VIAL IV (09:27)
--- NOTE | 2020-04-21 09:53 | RT ---
Addendum entered by Dung Butcher, RT 04/21/20 15:52: After one hour of somulence, informed nurse Torres and Dr Childs. Plan is ABG, results given immed to dr Childs. At 1530 neb tx, nursing put pt's home CPAP back on, pt very sleepy but wakes up on command. Neb given and gentle CPT bilat given. Original Note: Called by Nurse Brian, pt very sedated after 10 mg Oxycontin PO for pain. Pt sleeping; barely arousable, opens eyes on command, does not follow commands (albeit pt very [place]) Nurse Brian and Hospitalist aware. Pulse 60, Resp rate 10-11, O2 sats 91% with 4 lpm bleed in to CPAP. I thoroughly cleaned and disinfected home CPAP machine (unit angel, filter dirty, mask dirty). All parts viable. Filter cleaned by me. Entire home CPAP machine turned on and placed to patient, unit functioning fine. 4 lpm bleed into mask (pt desats on room air).
--- NOTE | 2020-04-21 10:29 | DI.RAD.S_ITS ---
PROCEDURE: XR CHEST 1V INDICATIONS: shortness of breath, assess LLL TECHNIQUE: One view of the chest was acquired. COMPARISON: [facility], CR, XR CHEST 2V, 03/19/2018, 16:21. FINDINGS: Surgical changes and devices: None. Lungs and pleura: There is a retrocardiac opacity with haziness of the left hemidiaphragm that is suspicious for a consolidation and possible small pleural effusion. Mildly low right lung volume is noted without a focal consolidation. Mediastinum: Mediastinal contours appear normal. Heart size is normal. Atherosclerotic calcifications are seen in the aorta. Bones and chest wall: No suspicious bony lesions. Overlying soft tissues appear unremarkable. IMPRESSION: Left lower lobe consolidation and possible small left pleural effusion, suspicious for pneumonia in the appropriate clinical setting. Dictated by: Terrance Oreilly M.D. on 04/21/2020 at 10:58 Approved by: Terrance Oreilly M.D. on 04/21/2020 at 11:01
[2020-04-21 11:34] LABS: PCO2 ABG 42.2 mmHg (35-45)
[2020-04-21 11:35] LABS: HCO3 ABG 21 mmol/L (22-26); Oxygen Saturation ABG 96 % (95-100); PO2 ABG 90 mmHg (80-100); TCO2 ABG 22 mmol/L (21-31)
[2020-04-21 11:36] LABS: Fractionated Inspired Oxygen 3.5
--- NOTE | 2020-04-21 12:23 | ST.IPIE ---
Visit Care Team Role Provider Type Lenard Juan MD Primary Care Provider Non-Staff Referring Provider Specialty: Medical Address: [address] [place] [address] [address], [place], [address] Email: Bruna Rojas DO Other Providers Physician Specialty: Internal Medicine Address: [address] [place] [address], [address] Email: [email or web address] Attending Provider Physician Specialty: General Surgery Address: [address] [place] [address], [address], [place], [address] Email: [email or web address] Khanh Bates MD Admit Provider Physician Specialty: General Surgery Address: [address] [place] [address], [address] Email: [email or web address] Current Diagnoses Unilateral inguinal hernia, with obstruction, without gangrene, not specified as recurrent (04/18/20) Past Medical History (Last Reviewed 04/20/20 @ 23:52 by Bruna Rojas DO) CKD (chronic kidney disease) (Acute Medical) Congestive heart failure (Acute Medical) Diabetes mellitus (Acute Medical) Heart failure (Acute Medical) Hernia of scrotum (Acute Medical) Hypertension (Acute Medical) Lower extremity weakness (Acute Medical) ST IP Initial Evaluation Report SHOEMAKER APPRENTICE Clinical Swallow Evaluation Start: 04/21/20 10:22 Freq: Status: Active Protocol: Document 04/21/20 10:22 NERI (Rec: 04/21/20 10:32 NERI [email or web address]) Clinical Swallow Evaluation Session Time Visit Start Time 09:50 Visit Stop Time 09:10 Total Visit Minutes [address] Rojas Reason for Referral Stroke protocol Setting Assessment Location Acute Care Visit Type Note Type Initial evaluation Next Note Type Next Note Type Treatment Note Patient Information Identification Type Name,Date of History Per MD report: Hernan Celeste is an 84-year-old male with a past medical history significant for advanced COPD, hypertension, CHF, diabetes mellitus type 2, non-insulin using, and CKD 4 who is a postop day 2 patient undergoing large incarcerated bilateral inguinal hernia repair with orchectomy. On the morning of 04/20 the nurse noted slurred speech and left -sided weakness and a code stroke was called at approximatelt 11:51 with last known normal ten minutes prior . His speech was slurred but appeared to be due to severe dyspnea. The patient reported he was ?not doing well.? When MD inquired why he was not doing well at first he was unable to give specific detail as to why he was not doing well and several minutes later reported it he was not doing well because he was very short of breath and he was ? stuttering which he has never done before?. He denied headache, vision changes, lightheadedness or dizzines, chest pain, abdominal pain, nausea, vomiting, fever, chills, or diarrhea. A stroke assessment was completed and difficult due to patient being nearly blind and he scored an NIH of 2 for dysarthria and slurred speech. He did not have facial droop. ST/OP/PT was ordered following stroke protocol. Subjective Observations The pt was in his room alone, sitting up in bed attempting to eat breakfast. Upon SHOEMAKER APPRENTICE arrival, the pt informed he had just spilled his coffee down the front of himself and stated, which I've never done before. The pt was noted to reach into his oatmeal with his left hand. He did not take hold of any food or attempt to feed himself with left hand . When asked, he stated he was right handed now, telling that he was left handed as a child but not allowed to be by teachers. Over the course of the session , the pt became increasingly somnolent. After session, SHOEMAKER APPRENTICE consulted with Nsg who informed the pt had received pain medications prior to SHOEMAKER APPRENTICE' s arrival, which may account for the somnolence. Reported by Patient Location Other Comment Pt reported pain at surgical site. Current Diet Regular,Thin liquids Baseline Feeding Method Independent in self-feeding Patient Questionnaire No Objective Assessment Mental Status Confused,Lethargic Oral Integrity Excessive saliva/Drooling Dentition Upper dentures/partials,Lower dentures/partials Lip Function Moderate impairment Observation of Lips at Rest Symmetrical Pucker Reduced strength Lip Retraction Within normal limits Alternating Pucker/Lip Retraction Reduced range of motion, Incoordination Tongue Function Moderate impairment Observations of Tongue at Rest Within normal limits Tongue Protrusion Reduced strength Tongue Lateralization Reduced range of motion, Reduced strength, Incoordination Observations of Jaw at Rest Within normal limits Nasality Within normal limits Phonation Within normal limits Respiratory Sufficiency Within normal limits Comment Oral peripheral exam limited d /t pt somnolence. Pt required repetition and demonstration of many instructions, in part d/t poor hearing and vision and seemingly in part d/t confusion. The pt was unable to remain awake during OPE. Prior to pt falling asleep, he was noted to have imprecise speech articulation, with speech intelligibility at ~70% . Unable to perform full speech assessment. Food and Liquid Trials Position During Assessment Upright (90 degrees) Liquids Trialed Thin Comment Oral trials were limited to 2 sips of thin liquid from straw . The pt exhibited no overt s/ sx of aspiration; however, audible expiration was noted prior to and during intake. SHOEMAKER APPRENTICE instructed the pt to cough , and the pt produced a single weak cough, put his hand to his abdomen and stated that it hurt to cough d/t recent surgery. Results Unable to complete bedside swallow examination d/t pt somnolence. While no overt s/ sx of aspiration were observed with 2 sips of thin liquid, the pt did exhibit reduced lingual strength and coordination, audible expiratory sounds which may or may not be related to previous oral intake, weak cough d/t surgical pain, difficulty self-feeding, and general weakness and confusion . These factors increase his risk of aspiration and warrant further assessment of swallow safety and close monitoring for clinical signs of aspiration. The pt requires 1: 1 set-up assistance, feeding assistance, and supervision with oral intake. Findings Swallowing Function Oral phase dysphagia Swallowing Function Comments Unable to assess pharyngeal swallow phase d/t limited oral trials Contributing Factors to Swallow Reduced alertness or attention Impairment ,Difficulty following directions,Reduced oral strength/coordination/ sensation,Impaired airway protection Comments Further assessment required for prognosis Impact on Safety and Functioning Risk for aspiration Recommendations Swallowing Treatment Yes Recommended Solids Dysphagia Mechanical Recommended Liquids Thin Safety Precautions/Swallowing Supervision needed for all Recommendations meals,1 to 1 close supervision ,Feed only when alert,Reduce distractions,Remain upright ( 90 degrees) during all oral intake,Upright position at least 30 minutes after meals, Small bites and sips when eating,Slow rate; swallow between bites,Set-up assistance,1 to 1 feeding assistance,Strict oral care after intake Medication Recommendations As Tolerated Comments D/C recommendations require further evaluation Education Patient/Caregiver Education Patient requires further education/training Goals Short-term Goals 1. The pt will participate in further evaluation of swallow safety and speech intelligibility to reduce risk of aspiration, increase his ability to express wants and needs, and to guide POC. Long-term Goals 1. The pt will tolerate least restrictive diet to meet his nutrition and hydration needs. 2. The pt will demonstrate speech intelligibility sufficient to express wants/ needs and participate in medical decisions.
--- NOTE | 2020-04-21 12:39 | PT.IPTN ---
Current Diagnoses Unilateral inguinal hernia, with obstruction, without gangrene, not specified as recurrent (04/18/20) Surgery Performed Operation Date: 04/18/20 09:15 Actual Procedures p Hernia Repair - Inguinal (Left) and Poss. Right W/ Mesh - Trent Solitario MD Physical Therapy Treatment Note M2 PT-IP Current Condition Start: 04/19/20 12:09 Freq: NEEDED Status: Active Protocol: Document 04/19/20 10:05 AB (Rec: 04/19/20 12:25 AB [email or web address]) Physical Therapy Current Condition Current Condition Evaluation Date 04/19/20 Treatment Diagnosis s/p L inguinal hernia repair; difficulty in walking Onset Date 04/18/20 Precautions Abdominal Surgery Precautions Log Roll,Lifting Restrictions, Gait Belt above Incisional Area M3 PT-IP Subjective Start: 04/19/20 12:09 Freq: NEEDED Status: Active Protocol: Document 04/21/20 12:19 CLB (Rec: 04/21/20 13:02 CLB [email or web address]) Subjective Physical Therapy Visit Type Type Treatment Note Visit Start Time 12:19 Visit Stop Time 12:40 Total Visit Minutes 21 Notes Co-treat with EJ Rosenthal Number of DRAFTER TOPOGRAPHICAL Visits 1 Physical Therapy Visit Comments Patient Comments pt is agreeable to do PT Therapy Pain Assessment Pain When Pain Assessed At Rest Pain Present Pain Present Pain Reported Location Left Inguinal area Scale Used not quantified Pain Management Techniques Modification of Treatment,Re- positioning,Timing of Activity with Medications M4 PT-IP Mobility and Gait Start: 04/19/20 12:09 Freq: NEEDED Status: Active Protocol: Document 04/21/20 12:19 CLB (Rec: 04/21/20 13:02 CLB [email or web address]) PT-Bed Mobility Assessment Supine to Sit Supine to Sit Maximum Assistance,Head of Bed Elevated,Bedrails Scooting Scooting to Edge of Bed Maximum Assistance PT-Transfer Assessment Sit to and From Stand Sit to and from Stand Maximum Assistance,2 Person Assistance,Use of Upper Extremities Equipment Transfer Assistive Device Gait Belt,Front Wheeled Walker Orthotic/Prosthetic Devices or Brace: No Transfers Transfer Destination Chair Transfer Technique Squat Pivot Transfer Ability Level of Assist Maximum Assistance,2 Person Assistance Comments Mobility Comments Pt able to follow directions and assist as he was able. Pt requiring Max A x1 for bed mobility with HOB elevated and use of draw sheet to EOB, pt sat on EOB Min A x1 for balance as pt has lateral lean to left and difficulty using LUE to assist with sitting balance. Pt required Max A x2 for sit-stand but was unable to stay in standing position as bilateral LE's buckled and pt was assisted to sitting position, pt was then transferred Max A x2 to chair with squat pivot. Pt required Max A x2 to scoot back in chair. Pt was left in chair with alarm on, call light within reach and OT Ariadna present. Gait Assessment Comments Gait Comments Unable due to bilateral buckling of LE's. M5 PT-IP Objective Assessments Start: 04/19/20 12:09 Freq: NEEDED Status: Active Protocol: Document 04/19/20 10:05 AB (Rec: 04/19/20 12:25 AB [email or web address]) Orientation Orientation/Cognition Level of Alertness Alert Orientation Name,Place,Situation Language Function Ability Hard of Hearing Safety Awareness Decreased Safety Awareness Comments pt with decrease vision Gross Range of Motion Lower Extremity ROM Assessment Within Functional Limits Strength Lower Extremity Strength Assessment Bilaterally Impaired Comments Strength Comments RLE 3+/5 LLE 4-/5 Coordination Assessment Gross Coordination Gross Coordination WNL Sensation Assessment Sensation Gross Sensation WNL Muscle Tone Muscle Tone WNL Yes M6 PT-IP Treatment Start: 04/19/20 12:09 Freq: NEEDED Status: Active Protocol: Document 04/20/20 11:45 AW (Rec: 04/20/20 12:39 AW [id number]) Physical Therapy Treatment Exercises Exercises Ankle Pumps,Gluteal Sets,Quad Sets,Heel Slides Education Education Provided Precautions,Safety M7 PT-IP Assessment and Plan Start: 04/19/20 12:09 Freq: NEEDED Status: Active Protocol: Document 04/21/20 12:19 CLB (Rec: 04/21/20 13:02 CLB [email or web address]) PT Summary Assessment and Plan Potential Rehabilitation Potential Fair Status of Condition at Evaluation Stable Summary Impairments Pain,ROM,Strength,Balance, Coordination,Sensation,Tone, Cognition,Bed Mobility, Transfers,Gait,Activity Tolerance Progress Towards Goals Slow Progress due to Pain,Slow Progress due to Activity Tolerance Assessment Summary Pt was alert and able to follow directions. Pt is requiring Max A x1 for bed mobility and Max A x2 for squat pivot transfer to bed due to buckling and unable to remain in standing for transfer. Pt will require SNF rehab and at this time is not appropriate for twice a day PT sessions. Goals Bed Mobility Goal Standby Assistance Transfer Goal Standby Assistance,Front Wheeled Walker Gait Goal Standby Assistance,Front Wheel Walker Gait Distance 100 Other Goals up/down 4 steps without rails SBA ambulation using 4WW 150 ft SBA Days to Meet Goals 10 Frequency of Treatment Frequency Of Treatment Once a Day Treatment Plan Physical Therapy Treatment Plan Bed Mobility Training,Transfer Training,Gait Training, Therapeutic Exercise,Balance Retraining,Post Op Education, Discharge Planning,Hot or Cold Pack,Neuromuscular Re-ed, Coordination Retraining,Manual Therapy Other Recommendations and Next Treatment bed mobilty, sitting balance, Focus sit<>stand and transfers, ambulation if able. Recommendations To Nursing Amount of Assist Needed Mechanical Lift Discharge Recommendations PT Discharge Recommendations SNF Rehab Equipment Needed for Home Before FWW if pt goes home and not Discharge safe with 4WW Transportation Needs at Discharge Wheelchair/Cabulance
--- NOTE | 2020-04-21 12:41 | PC.NURSE ---
0800- Pt moaning/calling out. C/o pain 8-10 to incision and scrotum. He is requesting PRN meds. He is answering questions mostly correctly with intermittent mumbled speech. He is unable to state specific date but is otherwise oriented and asking appropriate questions re POC. Provided repositioning, ice packs to incision, and administered oxycodone as ordered. Pt was noted to be very drowsy post administration and desating to 87% with some mild apnea and bradypnea RR 10-12. Pt able to wake up and answer simple questions but unable to maintain eye opening for full sentences. Pt able to move arms and legs with equal weakness. Pt is very [place] and requires very loud as well as tactile stimuli to wake. RT notified of desats and apnea and arrived at bedside to apply cpap with O2 bleed in. Hospitalist and surgeon aware and plan to monitor at this time. Pt continues to be somnolent but maintaining SPO2 90-94% on CPAP with 4l bleed in. Reviewed continued somnolence with hospitalist around 1030 and received orders for ABG/CXR. Pts family member came in to visit around 1100 at which time pt awoke and was placed on 3L O2 via NC to visit with family. Call light in easy reach.
--- NOTE | 2020-04-21 13:39 | PM.PNPO.1 ---
Subjective Subjective Date Patient Seen: 04/21/20 Time Patient Seen: 13:39 Interval history: Code stroke was called yesterday for the patient as he was having some difficulty speaking. He had a CT head which demonstrated no evidence of hemorrhagic stroke and was subsequently started on aspirin. CT chest demonstrated left atelectasis. Internal Medicine was consulted felt that he was volume overloaded he was transferred to the intensive care unit where he received diuresis and respiratory support. Today he is feeling well his speech has returned to baseline and he feels his breathing is easier than it was yesterday. He was scheduled for an MRI of the brain however this was placed on hold his he was unable to lay flat for the procedure. Exam Vital Signs (past 8 hours): - 04/21/20 07:49 04/21/20 08:00 04/21/20 11:00 Temperature 98.4 F Pulse Rate 68 73 63 Respiratory Rate 22 20 14 Blood Pressure 123/58 L Pulse Oximetry 97 92 96 04/21/20 12:00 04/21/20 13:00 Temperature 97.6 F Pulse Rate 62 Respiratory Rate 17 Blood Pressure 108/50 L Pulse Oximetry 93 94 Oxygen Delivery Method Nasal Cannula Oxygen Flow Rate 2 Narrative Exam Narrative: General elderly male alert oriented to person place and time. No focal deficits. He is hard of hearing and nearly blind Chest no respiratory distress minimal inspiratory effort sitting upright no audible wheeze Abdomen left groin incision clean dry intact with amalia. Objective Labs Result Diagrams: 04/21/20 04:47 04/21/20 04:47 Labs: Laboratory Results - last 24 hr 04/20/20 04/20/20 04/20/20 13:13 13:13 13:13 WBC RBC Hgb Hct MCV MCH MCHC RDW Plt Count Neut % (Auto) Lymph % (Auto) Hardin % (Auto) Eos % (Auto) Baso % (Auto) Neut # (Auto) Lymph # (Auto) Hardin # (Auto) Eos # (Auto) Baso # (Auto) ABG pH ABG pCO2 ABG pO2 ABG HCO3 ABG Total CO2 ABG O2 Saturation ABG Base Excess FiO2 Sodium 130 L Potassium 4.8 Chloride 101 Carbon Dioxide 26 BUN 66 H Creatinine 3.54 H Estimated GFR 16.6 L BUN/Creatinine Ratio 18.6 Glucose 137 H Hemoglobin A1c Lactate Calcium 7.7 L Magnesium 2.7 H Total Bilirubin 0.3 AST 19 ALT < 4 Alkaline Phosphatase 96 Troponin I 0.013 Total Protein 6.1 L Albumin 3.1 L Globulin 3.0 Albumin/Globulin Ratio 1.0 Triglycerides Cholesterol LDL Cholesterol, Calc HDL Cholesterol Procalcitonin Nasal Screen MRSA (PCR) 04/20/20 04/20/20 04/20/20 13:13 13:13 13:13 WBC 8.9 RBC 3.05 L Hgb 9.0 L Hct 27.0 L MCV 88.5 MCH 29.6 MCHC 33.4 RDW 14.3 Plt Count 136 L Neut % (Auto) 84.9 H Lymph % (Auto) 5.6 L Hardin % (Auto) 5.7 Eos % (Auto) 3.3 Baso % (Auto) 0.5 Neut # (Auto) 7600 H Lymph # (Auto) 500 L Hardin # (Auto) 500 Eos # (Auto) 300 Baso # (Auto) 0 ABG pH ABG pCO2 ABG pO2 ABG HCO3 ABG Total CO2 ABG O2 Saturation ABG Base Excess FiO2 Sodium Potassium Chloride Carbon Dioxide BUN Creatinine Estimated GFR BUN/Creatinine Ratio Glucose Hemoglobin A1c Lactate 0.6 L Calcium Magnesium Total Bilirubin AST ALT Alkaline Phosphatase Troponin I Total Protein Albumin Globulin Albumin/Globulin Ratio Triglycerides Cholesterol LDL Cholesterol, Calc HDL Cholesterol Procalcitonin 8.80 H Nasal Screen MRSA (PCR) 04/20/20 04/20/20 04/21/20 14:23 15:40 04:47 WBC 7.8 RBC 2.69 L Hgb 8.0 L Hct 23.8 L MCV 88.5 MCH 29.5 MCHC 33.4 RDW 14.3 Plt Count 119 L Neut % (Auto) 84.4 H Lymph % (Auto) 5.7 L Hardin % (Auto) 5.6 Eos % (Auto) 3.8 Baso % (Auto) 0.5 Neut # (Auto) 6600 Lymph # (Auto) 400 L Hardin # (Auto) 400 Eos # (Auto) 300 Baso # (Auto) 0 ABG pH 7.29 L* ABG pCO2 42.0 ABG pO2 87 ABG HCO3 20 L ABG Total CO2 22 ABG O2 Saturation 95 ABG Base Excess -6.0 L FiO2 0.44 Sodium Potassium Chloride Carbon Dioxide BUN Creatinine Estimated GFR BUN/Creatinine Ratio Glucose Hemoglobin A1c Lactate Calcium Magnesium Total Bilirubin AST ALT Alkaline Phosphatase Troponin I Total Protein Albumin Globulin Albumin/Globulin Ratio Triglycerides Cholesterol LDL Cholesterol, Calc HDL Cholesterol Procalcitonin Nasal Screen MRSA (PCR) Positive for mrsa H 04/21/20 04/21/20 04/21/20 04:47 04:47 04:47 WBC RBC Hgb Hct MCV MCH MCHC RDW Plt Count Neut % (Auto) Lymph % (Auto) Hardin % (Auto) Eos % (Auto) Baso % (Auto) Neut # (Auto) Lymph # (Auto) Hardin # (Auto) Eos # (Auto) Baso # (Auto) ABG pH ABG pCO2 ABG pO2 ABG HCO3 ABG Total CO2 ABG O2 Saturation ABG Base Excess FiO2 Sodium 128 L Potassium 4.7 Chloride 100 Carbon Dioxide 21 L BUN 67 H Creatinine 3.70 H Estimated GFR 15.8 L BUN/Creatinine Ratio 18.1 Glucose 147 H Hemoglobin A1c Lactate Calcium 7.4 L Magnesium 2.8 H Total Bilirubin AST ALT Alkaline Phosphatase Troponin I Total Protein Albumin Globulin Albumin/Globulin Ratio Triglycerides Cholesterol LDL Cholesterol, Calc HDL Cholesterol Procalcitonin 7.41 H Nasal Screen MRSA (PCR) 04/21/20 04/21/20 04/21/20 04:47 04:47 10:58 WBC RBC Hgb Hct MCV MCH MCHC RDW Plt Count Neut % (Auto) Lymph % (Auto) Hardin % (Auto) Eos % (Auto) Baso % (Auto) Neut # (Auto) Lymph # (Auto) Hardin # (Auto) Eos # (Auto) Baso # (Auto) ABG pH 7.30 L ABG pCO2 42.2 ABG pO2 90 ABG HCO3 21 L ABG Total CO2 22 ABG O2 Saturation 96 ABG Base Excess -6.0 L FiO2 3.5 Sodium Potassium Chloride Carbon Dioxide BUN Creatinine Estimated GFR BUN/Creatinine Ratio Glucose Hemoglobin A1c 5.7 Lactate Calcium Magnesium Total Bilirubin AST ALT Alkaline Phosphatase Troponin I Total Protein Albumin Globulin Albumin/Globulin Ratio Triglycerides 195 H Cholesterol 110 L LDL Cholesterol, Calc 51 HDL Cholesterol 20 L Procalcitonin Nasal Screen MRSA (PCR) Assessment & Plan Post-op Postoperative Procedures: Procedures Operation Date: 04/18/20 09:15 Actual Procedures Side Surgeon p Hernia Repair - Inguinal (Left) and Poss. Right W/ Mesh Trent Solitario MD Postoperative status narrative: 84-year-old man postoperative day 3 following a open left inguinal hernia repair. No acute issues in regards to his hernia repair. In regards to possible stroke yesterday, CT head demonstrates no evidence of hemorrhagic stroke he was having some difficulty speaking which I suspect was more attributed to his respiratory status than his neurological status. His speech is back to baseline today an MRI of his brain was ordered but not completed because he could not lie flat. CT chest demonstrates left lung atelectasis chest physiotherapy ordered and his oxygen has been weaned from face mask to 2 L now. He has significant pulmonary disease including both restrictive and diffusion related disease according to his pulmonary function test. Cr increased from 2.7-3.7 over the past 24 hours unsure if this is because of his soft blood pressure yesterday, medicine suspects that he is intravascularly dry but total volume overloaded and are treating with diuresis. -Diet as tolerated -Diuresis -Chest PT -SDs and SQH for VTE prophylaxis -MRI brain when able Quality VTE Deep Vein Thrombosis/Pulmonary Embolism Present on Admission: No
--- NOTE | 2020-04-21 15:04 | OT.IP.EVAL ---
Current Diagnoses Unilateral inguinal hernia, with obstruction, without gangrene, not specified as recurrent (04/18/20) Surgery Performed Operation Date: 04/18/20 09:15 Actual Procedures p Hernia Repair - Inguinal (Left) and Poss. Right W/ Mesh - Trent Solitario MD Past Medical History (Last Reviewed 04/20/20 @ 23:52 by Bruna Rojas DO) CKD (chronic kidney disease) (Acute) Congestive heart failure (Acute) Diabetes mellitus (Acute) Heart failure (Acute) Hernia of scrotum (Acute) Hypertension (Acute) Lower extremity weakness (Acute) Occupational Therapy Inpatient Evaluation/Re-Eval M1 PT/OT-IP Prior Functional Status Start: 04/21/20 14:51 Freq: NEEDED Status: Active Protocol: Document 04/21/20 12:19 [facility] (Rec: 04/21/20 15:16 [facility] [id number]) Medical Review Prior Functional Status Medical History Reviewed Yes Communication able to make needs known Mobility and Gait pt stated that he is modified independent with all mobilities and ambulation without AD indoors, uses 4WW for outdoor long distance ambulation(getting his mail) but also uses a SPC outdoor short distances stated that his grand daughter helps him with his groceries Activities of Daily Living and IADL's Pt states able to do his ADL's prior. Social History Household Members none Living Arrangements Mobile home Number of Floors (Floors) One Floor Number of Stairs To Enter/Railing? 4 steps to enter with B rail Home Environment High Toilet,Walk in Shower Home Equipment Four Wheel Walker,Straight Cane,Shower Seat with Backrest ,Hand Held Shower Additional Social History Comment pt stated that he sleeps on a recliner M2 OT-IP Current Condition Start: 04/21/20 14:51 Freq: Status: Active Protocol: Document 04/21/20 12:19 [facility] (Rec: 04/21/20 15:16 [facility] [id number]) Occupational Therapy Current Condition Current Condition Evaluation Date 04/21/20 Treatment Diagnosis s/p L inguinal hernia repair, left sided weakness and slurred speech Diagnosis Onset Date 04/18/20 M3 OT- IP Subjective and Pain Start: 04/21/20 14:51 Freq: Status: Active Protocol: Document 04/21/20 12:19 [facility] (Rec: 04/21/20 15:16 [id number]) OT- Subjective Occupational Therapy Visit Type Type Initial Evaluation Visit Start Time 12:19 Visit Stop Time 13:04 Total Visit Minutes 45 Occupational Therapy Visit Comments Patient Comments Pt agreed to try to get up. PET CARE ASSOCIATE present at pt needing extensive skilled assist for mobility needs. Patient/Caregiver Goals Pt did not state. OT Pain Assessment Pain When Pain Assessed At Rest Pain Present Pain Present Denied Pain M4 OT- IP ADL's Start: 04/21/20 14:51 Freq: Status: Active Protocol: Document 04/21/20 12:19 [facility] (Rec: 04/21/20 15:16 [id number]) OT SXX-Eyhr-Nalixdu General Evaluation Self-Feeding Ability Moderate Assistance Areas Needing Assistance Cutting Food,Opening Containers Comments OT Self-Feeding Comments Pt needing assist for set-up. Pt able to bring spoon to his mouth but needing to have the bowl right underneath him. Pt needing cues to slow down, be sure to clear the left side of his mouth, and being conscious to swallow as at times noted liquid coming out of the left side of his mouth. OT ADL-Grooming General Evaluation Grooming Ability Minimal Assistance Comments OT Grooming Comments Pt needing assist to help clean off his dentures, able to wash his face, hands, and brush his hair after set-up while seated in the recliner. OT ADL-Dressing General Eval Lower Body Dressing Ability Maximum Assistance Comments OT Dressing Comments At this time pt is dependent for LB dressing needs. OT ADL-Toileting General Evaluation Toileting Ability Total Assistance Comments OT Toileting Comments Flynn in place. OT ADL-Bathing Comments OT Bathing Comments NOt performed at this time. M5 OT- IP IADL's Start: 04/21/20 14:51 Freq: Status: Active Protocol: Document 04/21/20 12:19 [facility] (Rec: 04/21/20 15:16 [facility] [id number]) OT-Instrumental Activities of Daily Living Home Safety Awareness Home Safety Comments Pt a bit groggy as prior took pain medications, therefore to continue to access as pt mentally clears. Medication Management Medication Management Comments Pt states did his own meds prior. Money Management Money Management Caregiver Provides Assistance M6 OT- IP Functional Cognition Start: 04/21/20 14:51 Freq: Status: Active Protocol: Document 04/21/20 12:19 [facility] (Rec: 04/21/20 15:16 [id number]) Cognitive Factors Limiting Selfcare Function Cognitive Ability Level of Alertness Alert,Drowsy Patient Orientation Name,Place Attention Span Ability Capable of Focused Attention, Capable of Sustained Attention Ability to Follow Commands Able to Follow One Step Commands with Increased Time, Able to Follow One Step Commands with Repetition Cognitive Comments Cognitive Assessment Comments Pt able to follow one step commands. Pt is hard of hearing and a bit impulsive at this time. To continue to assess pt's cognition as pt mentally clears from pain medication take earlier. OT- Vision and Hearing OT- Vision Assessment Vision Assessment Comments Pt has difficulty with left eye to cross midline. Pt left eye tends to drift to the left . Pt is very hard of hearing. Pt states has long history of light sensitivity to left eye. M7 OT- IP Mobility and Balance Start: 04/21/20 14:51 Freq: Status: Active Protocol: Document 04/21/20 12:19 [facility] (Rec: 04/21/20 15:16 [id number] OT- Bed Mobility Assessment Supine to Sit Supine to Sit Assist Maximum Assistance,1 Person Assistance,Head of Bed Elevated,Bedrails OT-Transfer Assessment Sit to and From Stand Sit to and from Stand Maximum Assistance,2 Person Assistance Transfers Transfer Ability Maximum Assistance,2 Person Assistance Technique Transfer Destination Bed,Chair Transfer Technique Stand Step Pivot Devices Transfer Assistive Devices None,Gait Belt Comments Mobility Comments Pt able to stand to the FWW with MAX A X 2 however noted left leg buckling, therefore OT opted to do stand pivot transfer with pt. At this time for nursing staff recommend isamar lift. Pt tends to lean to the left and needing BRIDGET for sitting balance. OT- Balance Assessment Sitting Balance and Reactions Static Sitting Balance Ability Poor Dynamic Sitting Balance Ability Poor Standing Balance and Reactions Static Standing Balance Ability Poor Dynamic Standing Balance Ability Poor Comments Other Balance Tests/Deviations/Treatment Pt sits with lateral tilt to : the left with slight posterior tilt as well. M8 OT- IP Objective Assessments Start: 04/21/20 14:51 Freq: Status: Active Protocol: Document 04/21/20 12:19 [facility] (Rec: 04/21/20 15:16 [facility] [id number]) OT Gross Range of Motion Upper Extremity Range of Motion Assessment Within Functional Limits OT Strength Comments Strength Comments LUE 4-/5 at shoulder and elbow and distally 4/5. RUE 4-/5 to distal 4/5. OT- Coordination Assessment Upper Extremity Finger to Nose Test Within Functional Limits OT Sensation Assessment Comments Summary Comments Intact for light touch. M9 OT- IP Assessment and Plan Start: 04/21/20 14:51 Freq: Status: Active Protocol: Document 04/21/20 12:19 [facility] (Rec: 04/21/20 15:16 [facility] [id number]) OT Summary Assessment and Plan Potential Rehabilitation Potential Good Analytic Complexity at Evaluation Moderate Summary OT Impairments Strength,Balance,Functional Cognition,Functional Mobility, Self-Feeding,Grooming,Dressing ,Toileting,Bathing,Toilet Transfers,Shower Transfers, Activity Tolerance Progress Towards Goals Slow Progress due to Medical Issues,Slow Progress due to Activity Tolerance,Slow Progress due to Cognition Assessment Summary Pt mod complexity s/p Left inguinal hernia repair and since during this admission noted to have slurred speech and left sided weakness and to have MRI. Pt having deficits of balance, strength, decreased cognition functional mobility and now needing extensive two person asisst for mobility needs and ADl's. Pt is currently far from baseline as prior lives alone. Pt would benefit from skilled rehab prior to going home. Goals Self-Feeding Goal Independent Grooming Goal Independent Dressing Goal Independent Toileting Goal Independent Bathing Goal Independent Toilet Transfer Goal Independent Shower Transfer Goal Independent Days to Meet Goals 25 Frequency of Treatment Frequency Of Treatment Once a Day Treatment Plan OT Treatment Plan ADL Training,Functional Cognition Training,Functional Mobility,Patient/Family Education,Discharge Planning Other Treatment Recommendations and Next Transfer with FWW MAX A x2 to Treatment Focus BSC. Pt to be able to eat with good safety after set-up. Discharge Recommendations OT Discharge Recommendations SNF Rehab Home Equipment Needs Defer to SNF Transportation Needs at Discharge Wheelchair/Cabulance
--- NOTE | 2020-04-21 16:12 | P.PN_ITS ---
Subjective Subjective Date Patient Seen: 04/21/20 Time Patient Seen: 10:30 Interval history: Hernan Celeste is an 84-year-old male with a past medical history significant for advanced COPD, hypertension, CHF, diabetes mellitus type 2, non- insulin using, and CKD 4 who is a postop day 3 patient undergoing large incarcerated bilateral inguinal hernia repair with orchectomy. medicine was consulted yesterday over concerns for a possible stroke Given possible left-sided facial droop and not moving his left side well. He was rather somnolent after 10 mg of oxycodone this morning but has no focal neurological deficits. His mental status improved later in the day and he was alert and oriented x2 (thought he was in [facility]). his kidney function continues to decline with a creatinine of 3.7 today, sodium is 128. he cannot tolerate lying flat and was given not only his oral Lasix but an additional 20 mg of IV as well. This has helped somewhat with his orthopnea, although he still complains of shortness of breath at rest. He remains on meropenem for a UTI or possible pneumonia. Patient stated he would be interested in dialysis if absolutely necessary. Exam Vital Signs (past 8 hours): - 04/21/20 11:00 04/21/20 12:00 04/21/20 13:00 Temperature 97.6 F Pulse Rate 63 62 Respiratory Rate 14 17 Blood Pressure 108/50 L Pulse Oximetry 96 93 94 04/21/20 15:49 Temperature Pulse Rate 60 Respiratory Rate 14 Blood Pressure Pulse Oximetry 92 Oxygen Delivery Method CPAP Oxygen Flow Rate 4 Narrative Exam Narrative: General: Elderly male sitting in hospital bed in no acute distress, mild slurring of speech and dysarthria that appears to be due to degree of conversational dyspnea. HEENT: Normocephalic, atraumatic. External ears without defect. 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 Anicteric sclerae, moist conjunctivae, and no lid lag. Oropharynx free of erythema and cobble stoning with moist mucosa. Mild slurred speech and dysarthria as noted above. Neck: Supple with full range of motion. No lymphadenopathy or thyromegaly. Cardiovascular: Regular rate and rhythm without murmurs, rubs, or gallops appreciated. Pulmonary: Diminished throughout all lung byrd particularly in bases with occasional crackle. No use of accessory muscles. conversational dyspnea present. Abdomen: Soft, obese, bowel sounds present, tenderness to palpation in lower abdomen, nondistended. No hepatosplenomegaly or masses appreciated. Genitourinary: Womack catheter in place with very large edematous scrotum. Extremities: No clubbing or cyanosis. Mild bilateral pitting edema to pretibial area bilaterally, slightly improved. Skin: Normal temperature, turgor, and texture; no rash, ulcers, or subcutaneous nodules appreciated. Neurological: Mild slurred speech and dysarthria. No facial droop. Generalized weakness without focal deficit. Reflexes, coordination, and sensory function within normal limits. Patient nearly blind, slightly hard of hearing. Psychiatric: Normal mood and affect. Alert and oriented to person, place ([facility]), and time. Objective Labs Result Diagrams: 04/21/20 04:47 04/21/20 04:47 Labs: Laboratory Results - last 24 hr 04/20/20 04/20/20 04/21/20 14:23 15:40 04:47 WBC 7.8 RBC 2.69 L Hgb 8.0 L Hct 23.8 L MCV 88.5 MCH 29.5 MCHC 33.4 RDW 14.3 Plt Count 119 L Neut % (Auto) 84.4 H Lymph % (Auto) 5.7 L Lipscomb % (Auto) 5.6 Eos % (Auto) 3.8 Baso % (Auto) 0.5 Neut # (Auto) 6600 Lymph # (Auto) 400 L Lipscomb # (Auto) 400 Eos # (Auto) 300 Baso # (Auto) 0 ABG pH 7.29 L* ABG pCO2 42.0 ABG pO2 87 ABG HCO3 20 L ABG Total CO2 22 ABG O2 Saturation 95 ABG Base Excess -6.0 L FiO2 0.44 Sodium Potassium Chloride Carbon Dioxide BUN Creatinine Estimated GFR BUN/Creatinine Ratio Glucose Hemoglobin A1c Calcium Magnesium Triglycerides Cholesterol LDL Cholesterol, Calc HDL Cholesterol Procalcitonin Nasal Screen MRSA (PCR) Positive for mrsa H 04/21/20 04/21/20 04/21/20 04:47 04:47 04:47 WBC RBC Hgb Hct MCV MCH MCHC RDW Plt Count Neut % (Auto) Lymph % (Auto) Lipscomb % (Auto) Eos % (Auto) Baso % (Auto) Neut # (Auto) Lymph # (Auto) Lipscomb # (Auto) Eos # (Auto) Baso # (Auto) ABG pH ABG pCO2 ABG pO2 ABG HCO3 ABG Total CO2 ABG O2 Saturation ABG Base Excess FiO2 Sodium 128 L Potassium 4.7 Chloride 100 Carbon Dioxide 21 L BUN 67 H Creatinine 3.70 H Estimated GFR 15.8 L BUN/Creatinine Ratio 18.1 Glucose 147 H Hemoglobin A1c Calcium 7.4 L Magnesium 2.8 H Triglycerides Cholesterol LDL Cholesterol, Calc HDL Cholesterol Procalcitonin 7.41 H Nasal Screen MRSA (PCR) 04/21/20 04/21/20 04/21/20 04:47 04:47 10:58 WBC RBC Hgb Hct MCV MCH MCHC RDW Plt Count Neut % (Auto) Lymph % (Auto) Lipscomb % (Auto) Eos % (Auto) Baso % (Auto) Neut # (Auto) Lymph # (Auto) Lipscomb # (Auto) Eos # (Auto) Baso # (Auto) ABG pH 7.30 L ABG pCO2 42.2 ABG pO2 90 ABG HCO3 21 L ABG Total CO2 22 ABG O2 Saturation 96 ABG Base Excess -6.0 L FiO2 3.5 Sodium Potassium Chloride Carbon Dioxide BUN Creatinine Estimated GFR BUN/Creatinine Ratio Glucose Hemoglobin A1c 5.7 Calcium Magnesium Triglycerides 195 H Cholesterol 110 L LDL Cholesterol, Calc 51 HDL Cholesterol 20 L Procalcitonin Nasal Screen MRSA (PCR) Assessment & Plan Assessment & Plan narrative: Hernan Celeste is an 84-year-old male with a past medical history significant for advanced COPD, hypertension, CHF, diabetes mellitus type 2, non-insulin using, and CKD 4 who is a postop day 2 patient undergoing large incarcerated bilateral inguinal hernia repair with orchectomy. Medicine was consulted for a possible acute stroke and multiple medical issues. MRI today was unremarkable and it seems that his issues are more related to a toxic metabolic encephalopathy and worsening renal function. His volume status is quite complex but clinically appears volume overloaded but may be intravascularly dry based on his worsening renal function secondary to ATN. 1. Toxic metabolic encephalopathy, acute - most likely etiology due to significant dyspnea on exertion with high doses of opiate pain medications. Have reduced his oxycodone from 10 to 2.5-5 mg as needed. - May be related to worsening renal function Although his confusion is somewhat improving despite his renal function declining. other possible etiologies include underlying cognitive impairment with hospital induced delirium. - MRI did not reveal evidence of an acute infarct. Contrast imaging was unable to be obtained due to patient cooperation. 2. CLAIRE on CKD stage III - patient with a rising creatinine to 3.7 today. Unclear baseline but may now be in the upper 2s based on admission labs. Most recent lab work prior to this was 18 months ago and his creatinine was around 1.9. - Patient's volume status appears volume overloaded but he may be intravascularly dry. Continued diuresis today given significant orthopnea and LE edema. - UA with + LE and 30-100 WBC, with hyaline and granular casts consistent with ATN which is likely secondary to post operative hypotension And possibly related to a UTI. - Will check an FEurea given diuretic use today. - continue to follow BMP and creatinine, avoid nephrotoxic medications. - Consider transfer if further decline in his renal function to a center with dialysis capabilities and nephrology consultation. - check Renal Ultrasound for further evaluations, insure no hydronephrosis with womack catheter placement. 3. Acute on chronic Diastolic heart failure - patient with continued orthopnea. - Chest CT showed a left lower lobe consolidation and trace bilateral pleural effusions which were persistent on radiographs today. - will continue oral Lasix 40 mg daily, given extra dose of 20 mg IV given significant orthopnea today. - Patient is on 4.5 L of supplemental oxygen saturating at 91% currently. As an outpatient he had pulmonary function test which revealed a mild combined restrictive and obstructive pattern with a decreased DLCO. - RT eval and treat 4. acute hypoxemic respiratory failure - likely secondary to acute on chronic diastolic heart failure In combination with his left lower lobe consolidation. It is unclear if this consolidation is due to a pneumonia or atelectasis. Given his UA however he was started on meropenem which were more than adequately cover any possible pneumonia. 5. acute cystitis - patient's UA consistent with infection with 30-100 white blood cells. Specimen has been cultured. - Will continue meropenem pending cultures at this time. 6. hyponatremia - complex fluid status as noted above. Will check an FEUrea to see if he is inravascularly dry Despite gross volume overload on exam. - will continue to follow sodium levels with BMP. Thank you for this most interesting consult. Medicine team will continue to follow along with you. COVID-19 COVID-19 status: Negative Quality VTE Deep Vein Thrombosis/Pulmonary Embolism Present on Admission: No
[2020-04-21] MEDS: OXYCODONE IR 5 MG TABLET PO (18:23)
[2020-04-22] VITALS (17 sets, daily range): BP systolic 98–141; BP diastolic 54–87; PULSE 78–87; RESP 16–27; TEMP 37–37.5; O2SAT 89–100
[2020-04-22] MEDS: OXYCODONE IR 5 MG TABLET PO (00:27)
[2020-04-22] MEDS: MEROPENEM 500 MG in SODIUM CHLORIDE 0.9% 100 ML 200 ML IV (02:24)
[2020-04-22 05:26] LABS: Add Manual Diff / Slide Review NO; Basophils Absolute Auto 0 /uL (0-100); Basophils Percent Auto 0.7 % (0-2); Eosinophils Absolute Auto 300 /uL (0-450); Eosinophils Percent Auto 3.8 % (2-4); Hematocrit 25.8 % (41-53); Hemoglobin 8.7 g/dL (13.5-17.5); Lymphocytes Absolute Auto 300 /uL (1100-4500); Lymphocytes Percent Auto 4.7 % (25-40); Mean Corpuscular HGB Conc 33.5 % (30-36); Mean Corpuscular Hemoglobin 29.6 PG (26-34); Mean Corpuscular Volume 88.1 fL (80-100); Monocytes Absolute Auto 400 /uL (0-900); Monocytes Percent Auto 5.5 % (3-14); Neutrophils Absolute Auto 6200 /uL (1500-7000); Neutrophils Percent Auto 85.3 % (50-75); Platelet Count 144 X10^3/uL (150-400); Red Blood Cell Count 2.93 X10^6/uL (4.5-5.9); Red Cell Distribution Width 14.5 % (11.6-14.8); White Blood Cell Count 7.3 X10^3/uL (4.5-11.0)
[2020-04-22] MEDS: HEPARIN 5,000 UNIT/ML VIAL 5000 UNIT SUBCUT (05:29)
[2020-04-22 05:34] LABS: BUN Creatinine Ratio 16.7 (6-22); Blood Urea Nitrogen 74 mg/dL (9-20); Calcium 7.7 mg/dL (8.4-10.2); Carbon Dioxide 23 mmol/L (22-32); Chloride 100 mmol/L (98-107); Estimated Glomerular Filt Rate 12.8 mL/min (>60); Glucose 135 mg/dL (80-110); HEMOLYSIS < 15 (0-50); Potassium 4.8 mmol/L (3.4-5.1); Sodium 131 mmol/L (137-145)
--- NOTE | 2020-04-22 06:24 | PC.NURSE ---
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 Surgical incision remains clean/dry/intact with amalia open to air. Patient placed on bipap at 2315 due to poor inspiratory effort and low sats on cpap with 4L oxygen bled in. Patient has remained on 12/5, 60% Fi02, rate of 16 throughout the shift. Patient has been tachypnic with RR 20-30's. Patient with coarse lung sounds and a weak cough in which he hasn't been able to expectorate secretions. After repositioning, patient complained of pain 4/10 in abdomen near incision site. Patient medicated with PRN Percolone 5 mg PO. Patient has been able to sleep comfortably the rest of the shift, with repositioning every 2 hours. This AM, patient remains drowsy from medication but will wake up and answer questions appropriately. Patient with chronic womack cath in place, poor urine output throughout the shift with 150 mLs out. Delmi JACKSON notified at 0550 this morning of patient's increase in creatine from 3.7 to 4.4 today. No orders received. Patient currently resting in bed, sleeping.
--- NOTE | 2020-04-22 07:00 | DI.US.S_ITS ---
PROCEDURE: US RENAL COMPLETE INDICATIONS: CLAIRE TECHNIQUE: Real-time scanning was performed of the kidneys and bladder, with image documentation. COMPARISON: [facility], , US RENAL COMPLETE, 10/05/2018, 12:14. FINDINGS: Kidneys: Kidneys are normal in size. Right kidney measures 9.7 cm long; left kidney measures 10.3 cm long. Right renal cortical thickness is 1.2 cm; left renal cortical thickness is 0.9 cm. Renal cortical echotexture is normal. No nephrolithiasis. There is moderate left hydronephrosis and proximal hydroureter. No suspicious solid mass lesions. Bladder: Bladder is collapsed with a Flynn catheter, limiting evaluation. On pre-void images, neither ureteral jets are noted with color Doppler interrogation. (Of note, ureteral jets may not be detectable in up to 25% of cases due to insufficient differences in specific gravity between ureteral and bladder urine). Miscellaneous: No free pelvic fluid. IMPRESSION: 1. Moderate left hydronephrosis and proximal hydroureter. Source of obstruction is not identified. Further evaluation with CT is recommended. Dictated by: Janette Gross M.D. on 04/22/2020 at 7:52 Approved by: Janette Gross M.D. on 04/22/2020 at 7:54
[2020-04-22] MEDS: CEFTRIAXONE 1 GM/50 ML FROZ.PIGGY IV (07:55)
[2020-04-22] MEDS: guaiFENesin ER 600 MG TAB 1200 MG PO (08:12)
[2020-04-22] MEDS: SENNOSIDES 8.6 MG TABLET 17.2 MG PO (08:12)
[2020-04-22] MEDS: ASPIRIN EC 81 MG TABLET PO (08:12)
[2020-04-22] MEDS: HYDRALAZINE 25 MG TABLET 50 MG PO (08:12)
[2020-04-22] MEDS: carvediloL 12.5 MG TABLET PO (08:13)
[2020-04-22] MEDS: DOCUSATE 100 MG CAPSULE PO (08:13)
[2020-04-22] MEDS: TAMSULOSIN 0.4 MG CAPSULE PO (08:13)
[2020-04-22] MEDS: GABAPENTIN 300 MG CAPSULE PO (08:13)
[2020-04-22] MEDS: prednisoLONE OPHTH SUSP 1 DROPS EYE-BOTH (08:14)
[2020-04-22] MEDS: SODIUM CHLORIDE 0.9% FLUSH 10 ML IV (08:14)
--- NOTE | 2020-04-22 08:17 | PM.PN.1 ---
Subjective Subjective Date Patient Seen: 04/22/20 Time Patient Seen: 08:18 Interval history: Hernan Celeste is an 84-year-old male with a past medical history significant for advanced COPD, hypertension, CHF, diabetes mellitus type 2, non-insulin using, and CKD 4 who is a postop day 3 patient undergoing large incarcerated bilateral inguinal hernia repair with orchectomy. medicine was consulted now 2 days ago over concerns for a possible stroke given possible left-sided facial droop and not moving his left side well. MRI was ultimately negative. Yesterday he was rather somnolent after 10 mg of oxycodone, his mental status improved later in the day and he was alert and oriented x2 (thought he was in [facility]). Today his kidney function continues to decline with a creatinine of 4.4 and he is more lethargic. He was placed on BiPAP overnight. Diuresis was stopped given ATN despite clinically volume overloaded. Recommend transfer for higher level of care, with nephrology consultation and possibility of bronchoscopy given left lower lobe findings. Exam Vital Signs (past 8 hours): - 04/22/20 00:39 04/22/20 01:15 04/22/20 04:00 Temperature 98.6 F Pulse Rate 79 Respiratory Rate 20 Blood Pressure 98/54 L 110/55 L Pulse Oximetry 100 100 04/22/20 04:06 04/22/20 05:29 04/22/20 08:12 Temperature Pulse Rate 87 Respiratory Rate Blood Pressure 110/55 L 141/67 H Pulse Oximetry 99 04/22/20 08:13 Temperature Pulse Rate 87 Respiratory Rate Blood Pressure Pulse Oximetry Fraction of Inspired Oxygen 60 Oxygen Delivery Method BiPAP Oxygen Flow Rate 5 Narrative Exam Narrative: General: Elderly male sitting in hospital bed in no acute distress, mild slurring of speech and dysarthria that appears to be due to degree of conversational dyspnea. Appears fatigued. HEENT: Normocephalic, atraumatic. External ears without defect. 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 Anicteric sclerae, moist conjunctivae, and no lid lag. Oropharynx free of erythema and cobble stoning with moist mucosa. Mild slurred speech and dysarthria as noted above. Neck: Supple with full range of motion. No lymphadenopathy or thyromegaly. Cardiovascular: Regular rate and rhythm without murmurs, rubs, or gallops appreciated. Pulmonary: Diminished lung sounds Left lower lobe with occasional bibasilar crackles. No use of accessory muscles. conversational dyspnea present. Currently on BiPAP Abdomen: Soft, obese, bowel sounds present, tenderness to palpation in lower abdomen, nondistended. No hepatosplenomegaly or masses appreciated. Genitourinary: Flynn catheter in place with very large edematous scrotum. Extremities: No clubbing or cyanosis. Mild bilateral pitting edema to pretibial area bilaterally, slightly improved. Skin: Normal temperature, turgor, and texture; no rash, ulcers, or subcutaneous nodules appreciated. Neurological: Mild slurred speech and dysarthria. No facial droop. Generalized weakness without focal deficit. Reflexes, coordination, and sensory function within normal limits. Patient nearly blind, slightly hard of hearing. Psychiatric:Slowed responses. Alert and oriented to person. Objective Labs Result Diagrams: 04/22/20 05:05 04/22/20 05:05 Labs: Laboratory Results - last 24 hr 04/21/20 04/22/20 04/22/20 10:58 05:05 05:05 WBC 7.3 RBC 2.93 L Hgb 8.7 L Hct 25.8 L MCV 88.1 MCH 29.6 MCHC 33.5 RDW 14.5 Plt Count 144 L Neut % (Auto) 85.3 H Lymph % (Auto) 4.7 L [place] % (Auto) 5.5 Eos % (Auto) 3.8 Baso % (Auto) 0.7 Neut # (Auto) 6200 Lymph # (Auto) 300 L [place] # (Auto) 400 Eos # (Auto) 300 Baso # (Auto) 0 ABG pH 7.30 L ABG pCO2 42.2 ABG pO2 90 ABG HCO3 21 L ABG Total CO2 22 ABG O2 Saturation 96 ABG Base Excess -6.0 L FiO2 3.5 Sodium 131 L Potassium 4.8 Chloride 100 Carbon Dioxide 23 BUN 74 H Creatinine 4.44 H Estimated GFR 12.8 L BUN/Creatinine Ratio 16.7 Glucose 135 H Calcium 7.7 L Assessment & Plan Assessment & Plan narrative: Hernan Celeste is an 84-year-old male with a past medical history significant for advanced COPD, hypertension, CHF, diabetes mellitus type 2, non-insulin using, and CKD 4 who is a postop day 2 patient undergoing large incarcerated bilateral inguinal hernia repair with orchectomy. Medicine was consulted for a possible acute stroke and multiple medical issues. MRI today was unremarkable and it seems that his issues are more related to a toxic metabolic encephalopathy and worsening renal function. His volume status is quite complex but clinically appears volume overloaded but may be intravascularly dry based on his worsening renal function secondary to ATN. 1. Toxic metabolic encephalopathy, acute - most likely etiology initially due to significant dyspnea on exertion with high doses of opiate pain medications. Have reduced his oxycodone from 10 to 2.5-5 mg as needed. - Likely continued lethargy and confusion due to worsening renal function. Other possible etiologies include underlying cognitive impairment with hospital induced delirium. - MRI brain did not reveal evidence of an acute infarct. Contrast imaging was unable to be obtained due to patient cooperation. 2. CLAIRE on CKD stage IV - patient with a rising creatinine to 4.4 today. Unclear baseline but may now be in the upper 2s based on admission labs. Most recent lab work prior to this was 18 months ago and his creatinine was around 1.9. - Patient's volume status appears volume overloaded but he may be intravascularly dry. Continued diuresis today given significant orthopnea and LE edema. - UA with + LE and 30-100 WBC, with hyaline and granular casts consistent with ATN which is likely secondary to post operative hypotension And possibly related to a UTI. - Will check an FEurea given recent diuretic use, ordered urine but not so far collected. - continue to follow BMP and creatinine, avoid nephrotoxic medications. - Recommend transfer for worsening renal function to a center with dialysis capabilities and nephrology consultation. - renal ultrasound showing L hydronephrosis and hydroureter with unclear point of obstruction although severity is decreased compared to prior CT imaging from 03/04. Consider repeat CT abdomen pelvis for further assessment although the patient appears to have a functioning right kidney and this is felt less likely to be the cause of his acute renal failure. 3. Acute on chronic Diastolic heart failure - patient with continued orthopnea. - Chest CT showed a left lower lobe consolidation and trace bilateral pleural effusions which were persistent on radiographs today. - diuresed initially but have stopped given ATN. - As an outpatient he had pulmonary function test which revealed a mild combined restrictive and obstructive pattern with a decreased DLCO. - RT eval and treat 4. acute hypoxemic respiratory failure - likely secondary to acute on chronic diastolic heart failure In combination with his left lower lobe consolidation and prior underlying lung disease. It is unclear if this consolidation is due to a pneumonia or atelectasis. Given his UA however he was started on meropenem which were more than adequately cover any possible pneumonia. Narrowed to ceftriaxone today given urine culture results. - given persistent infiltrate and findings and unclear nature, initially recommended for bronchoscopy with consultation from critical care at [facility]. Now with worsening renal failure and possible transfer, would recommend a facility with bronchoscopy available. 5. acute cystitis - patient's UA consistent with infection with 30-100 white blood cells. Specimen has been cultured and grew Providencia sensitive to ceftriaxone. - Patient started on meropenem 04/20 - 04/22. narrowed on 04/22 to ceftriaxone. 6. hyponatremia - complex fluid status as noted above. Low of 128 yesterday with improvement today to 131. Will check an FEUrea to see if he is inravascularly dry Despite gross volume overload on exam as noted below. - will continue to follow sodium levels with BMP. 7. Acute on chronic anemia, - likely secondary to volume overload. Alpesh of hemoglobin yesterday at 8.0, improved to 8.7 this AM. Thank you for this most interesting consult. Medicine team will continue to follow along with you. Quality VTE Deep Vein Thrombosis/Pulmonary Embolism Present on Admission: No
[2020-04-22] MEDS: ALBUTEROL/IPRATROPIUM 3 ML AMPUL INH ×3 (08:29→11:25)
--- NOTE | 2020-04-22 08:42 | DI.RAD.S_ITS ---
PROCEDURE: XR CHEST 1V INDICATIONS: worsening oxygenation requirements TECHNIQUE: One view of the chest was acquired. COMPARISON: [facility], CT, CT CHEST WO CON, 04/20/2020, 12:12. [facility], CR, XR CHEST 1V, 04/21/2020, 10:50. FINDINGS: Surgical changes and devices: None. Lungs and pleura: Generalized opacification can be seen of the left lung, which is attributed to a pleural effusion. Generalized interstitial prominence can be seen on both sides. No pneumothorax is seen. Mediastinum: Cardiac and mediastinal silhouettes are partially obscured, yet are regarded to be stable. Atherosclerotic calcification of the aortic arch is noted. Bones and chest wall: Age-appropriate bony degenerative changes are seen. No suspicious bony lesions. Overlying soft tissues appear unremarkable. IMPRESSION: There is generalized opacification seen of the left lung, which is attributed to an enlarging pleural effusion, yet is nonspecific on this chest radiograph. If clinically appropriate, please consider a CT versus a left lateral decubitus view. Interstitial prominence is seen throughout. The interstitial prominence is nonspecific, yet may be related to pulmonary edema. Dictated by: Arnulfo Little M.D. on 04/22/2020 at 8:29 Approved by: Arnulfo Little M.D. on 04/22/2020 at 8:32
--- NOTE | 2020-04-22 08:52 | OT.IPNOTE ---
Per nursing, pt not doing well medically and not appropriate to be seen for therapy today. To check on pt tomorrow for OT.
--- NOTE | 2020-04-22 08:56 | PT-IP ANOTE ---
Per RN pt not doing well please hold PT/OT. Will check back with pt tomorrow.
--- NOTE | 2020-04-22 09:42 | CM.DPC ---
DCP/continued: Reviewed chart. Patient transferred to room #226 on Tuesday for possible stroke. Currently patient off/on BIPAP. Spoke with provider/Dr. Childs whom reports that his recommendation is for patient to transfer for higher level of care. Patient possibly may need hemodialysis. P: If patient remains at [facility] patient will need SNF. First choice is [facility] and they have accepted. TERRY Curran
[2020-04-22 10:06] LABS: COVID19 -Nasal RAPID Negative (Negative)
--- NOTE | 2020-04-22 10:06 | SLP.IPNOTE ---
Per Nsg request, will withhold tx this morning to conserve pt energy. Will f/u again this afternoon as able.
--- NOTE | 2020-04-22 13:43 | PC.NURSE ---
Addendum entered by Terese Webb R.N. 04/22/20 15:03: discharge at this time Addendum entered by Terese Webb R.N. 04/22/20 14:23: report called to [facility] and given to JASON KEYES PT WILL GO TO ROOM 2013- AWAITNG TRANSPORT Original Note: pt intermittently confused - his labs are worsening in relation to his kidney function and his o2 needs are increasing- per cxr his left nerissa is mostly a white out- lungs diminished bilat and coarse- buttermaker continuous churn indwelling catheter with pale cloudy urine with sediment noted- transverse incision alejandro with no redness- planning to transfer later this date to [facility] for potential bronch/ and assessment for dialysis- oxygen requirements increasing over dourse of hospital stay
--- NOTE | 2020-04-22 14:14 | P.DS_ITS ---
History of Present Illness History of Present Illness Chief complaint: SDC *OPB* Narrative: This is a 84-year-old man who has a extremely large left inguinal hernia containing colon as well as his left ureter. Has a chronic indwelling Flynn catheter because his hernia is so large that it obstructs his outflow. He has significant comorbidities including chronic renal insufficiency baseline creatinine 2.5, and underlying pulmonary disease including both restrictive and a diffusion related issue. In addition to this he has congestive heart failure and hypertension. Discharge Providers Provider Date of admission: 04/18/20 07:54 Discharge Date: 04/22/20 Primary care physician: Lenard Juan MD Consults: 04/18/20 15:07 Consult to Discharge Planning Routine Comment: Consult to Physical Therapy Evaluate & Treat Comment: walks with a cane. post op hernia repair(l groin) Physician Instructions: Evaluate and Treat Consult to Respiratory Therapy Evaluate & Treat Comment: Physician Instructions: Evaluate and treat 04/20/20 12:08 Consult to Hospitalist Service Routine Comment: Consulting Provider: Bruna Rojas Reason for consultation: stroke protocol Has provider been notified: Yes 04/20/20 12:33 Consult to Occupational Therapy Evaluate & Treat Comment: Physician Instructions: Evaluate and treat 04/20/20 19:12 Consult to Speech Therapy Evaluate & Treat Comment: Physician Instructions: Evaluate and treat Discharge provider: Khanh Bates MD Summary Hospital Course Discharge Diagnosis: Acute kidney injury Acute hypoxemic respiratory insufficency Toxic metabolic encephalopathy Acute on chronic diastolic heart failure Acute cystitis Non insulin-dependent diabetes Hospital Course: Patient underwent open left inguinal hernia repair with mesh 04/18. Massive hernia containing colon no acute intra operative issues. Post op eratively course was complex. 1-Acute mental status change marked by difficulty speaking code stroke placed CTH and MRI were negative. Suspect mental status decline was secondary to delerium and or worsening renal dysfunction. 2. CLAIRE-baseline Cr 2 tana to 4.4 today. Medicine suspects volume overloaded but intravscularly dry and recommended continued diuresis. Transfer to center with dialysis capability and nephrology consultation was recomended. 3. acute hypoxemic respiratory failure-has underlayinh restrictive and diffusion disease at baseline developed worsening respiratory status. Imaging shows left lung atelectasis vs pna. 4. 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 Culture grew Providencia sensitive to cef triaxone. Exam Vital Signs (past 8 hours): - 04/22/20 08:00 04/22/20 08:12 04/22/20 08:13 Temperature 99.5 F Pulse Rate 87 87 87 Respiratory Rate 27 H Blood Pressure 141/64 H 141/67 H Pulse Oximetry 89 L 04/22/20 08:30 04/22/20 08:37 04/22/20 08:52 Temperature Pulse Rate 86 Respiratory Rate 24 Blood Pressure 141/87 H Pulse Oximetry 100 93 04/22/20 08:59 04/22/20 09:28 04/22/20 11:40 Temperature Pulse Rate 84 Respiratory Rate Blood Pressure Pulse Oximetry 92 92 04/22/20 12:00 Temperature Pulse Rate Respiratory Rate Blood Pressure Pulse Oximetry 95 Fraction of Inspired Oxygen 0.50 Oxygen Delivery Method BiPAP Oxygen Flow Rate 50 Narrative Exam Narrative: General adult male alert but disoriented to person and place Chest labored respirations on high-flow oxygen accessory muscle use Abdomen soft nontender. Left groin incision clean dry intact with amalia Objective Labs Result Diagrams: 04/22/20 05:05 04/22/20 05:05 Labs: Laboratory Results - last 24 hr 04/22/20 04/22/20 04/22/20 05:05 05:05 09:35 WBC 7.3 RBC 2.93 L Hgb 8.7 L Hct 25.8 L MCV 88.1 MCH 29.6 MCHC 33.5 RDW 14.5 Plt Count 144 L Neut % (Auto) 85.3 H Lymph % (Auto) 4.7 L [place] % (Auto) 5.5 Eos % (Auto) 3.8 Baso % (Auto) 0.7 Neut # (Auto) 6200 Lymph # (Auto) 300 L [place] # (Auto) 400 Eos # (Auto) 300 Baso # (Auto) 0 Sodium 131 L Potassium 4.8 Chloride 100 Carbon Dioxide 23 BUN 74 H Creatinine 4.44 H Estimated GFR 12.8 L BUN/Creatinine Ratio 16.7 Glucose 135 H Calcium 7.7 L COVID-19 PCR Negative Discharge Plan Discharge Plan Patient Disposition: Xfer [facility] Discharge orders & Medications Follow up/Referrals: Lenard Juan MD [Primary Care Provider] - Diet/Activity/Treatments Diet: Carb-consistent/Diabetic Discharge Data Primary Care Provider: Lenard Juan VTE Deep Vein Thrombosis/Pulmonary Embolism Present on Admission: No
== END 2020-04-22 15:04 | disposition short-term general hospital (02) | DRG 350 ==
LOC: OR 07:59 → AC 07:59 → ICU 04-20 15:46
PROVIDERS: Internal Medicine; Admitting Provider Surgery; PCP Family Medicine; Referring Provider Family Medicine; Visit Provider Specialist
PROC: 0YU60JZ Supplement Left Inguinal Region with Synthetic Substitute, Open Approach (ICD-10-PCS; principal; 2020-04-18 09:15)
DX: K40.30 Unilateral inguinal hernia, with obstruction, without gangrene, not specified as recurrent (principal); G93.41 Metabolic encephalopathy; N17.0 Acute kidney failure with tubular necrosis; I50.33 Acute on chronic diastolic (congestive) heart failure; J96.01 Acute respiratory failure with hypoxia; I13.0 Hypertensive heart and chronic kidney disease with heart failure and stage 1 through stage 4 chronic kidney disease, or unspecified chronic kidney disease; N18.4 Chronic kidney disease, stage 4 (severe); E87.1 Hypo-osmolality and hyponatremia; J98.11 Atelectasis; N30.90 Cystitis, unspecified without hematuria; E11.22 Type 2 diabetes mellitus with diabetic chronic kidney disease; B96.89 Other specified bacterial agents as the cause of diseases classified elsewhere; D64.9 Anemia, unspecified; R47.1 Dysarthria and anarthria; G83.34 Monoplegia, unspecified affecting left nondominant side; Z11.59 Encounter for screening for other viral diseases; J44.9 Chronic obstructive pulmonary disease, unspecified; Z01.818 Encounter for other preprocedural examination
CPT/HCPCS: 36415; 36600; 49507; 54520; 70450; 70551; 71045; 71250; 76770; 80048; 80053; 80061; 81001; 82805; 82962; 83036; 83605; 83735; 84145; 84484; 85025; 87077; 87086; 87186; 87635; 87797; 92610; 93005; 94640; 94660; 94667; 94668; 94760; 94762; 97110; 97161; 97166; 97530; 97535; 99214; C1781; J0131; J0690; J1170; J1644; J1940; J2185; J2250; J2405; J2704; J3010; J7613

== ENCOUNTER → 2020-05-09 06:40 | Outpatient (ROUT) | payer MEDICARE, SELFPAY ==
[2020-04-20 18:51] VITALS: BMI 31.8
[2020-04-22 11:43] VITALS: PULSE 86; RESP 21; O2SAT 92
[2020-05-09 06:43] LABS: Bacteria Urine None Seen
[2020-05-09 07:59] LABS: Appearance Urine UA CLEAR; Bilirubin Urine UA NEGATIVE (NEGATIVE); Color Urine UA YELLOW; Glucose Urine UA TRACE g/dL (Negative); Ketones Urine UA NEGATIVE (NEGATIVE); Leukocyte Esterase Urine UA TRACE (NEGATIVE); Nitrite Urine UA NEGATIVE (Negative); Occult Blood Urine UA 3+ (Negative); Protein Urine UA 2+ (Negative); Urobilinogen Urine UA 0.2 E.U./dL (0.2)
[2020-05-09 08:07] LABS: Amorphous Sediment Urine 2+; RBC Urine 10-30/HPF (0-5/HPF); WBC Urine 1-5/HPF (0-5/HPF)
== END ==
PROVIDERS: Visit Provider Internal Medicine
DX: N13.9 Obstructive and reflux uropathy, unspecified (principal)
CPT/HCPCS: 81001